=== PATIENT | male | born 1975 | race Caucasian/White ===

== ENCOUNTER 2020-08-04 13:13 | Emergency (ER) | payer OTHER, SELFPAY ==
[2020-08-04 13:19] VITALS: BP 157/81; PULSE 79; RESP 16; TEMP 36.1; O2SAT 99
[2020-08-04 14:15] VITALS: BP 155/83; PULSE 80; RESP 18; TEMP 36.6; O2SAT 98
--- NOTE | 2020-08-04 14:18 | ED.GENADULT ---
HPI - General Adult General Chief complaint: Unspecified Stated complaint: I feel like crap knot in wrist and shoulder Time Seen by Provider: 08/04/20 13:59 History of Present Illness HPI narrative: 44 yo male presents with multiple complaints. His primary concern is pain in his upper thoracic spine. He says that he has had thsi pain for several days. He reports that it is so tender that he is not able to sleep because he cannot let it touch the pillow. He is concerned about in fection because it is at the same location where he previously had a cyst removed. He also reports generally not feeling well. He reports that this all started months ago after being treated for a UTI. He denies any urinary symptoms. He also complains of a lumps over hisright wrist. He reports that it moves around and changes in size. It makes his hand feel stiff. Related Data Home Medications Medication Instructions Recorded Confirmed No Home Medications 08/04/20 08/04/20 Allergies Allergy/AdvReac Type Severity Reaction Status Date / Time erythromycin base Allergy Unknown Unknown Verified 08/04/20 14:13 Review of Systems Review of Systems: All systems reviewed & are unremarkable except as noted in HPI and below Constitutional: Constitutional: Reports fatigue, Denies fever(s) and Reports poor appetite Cardiovascular: Cardiovascular: Denies chest pain Gastrointestinal: Gastrointestinal: Reports nausea Genitourinary: Genitourinary: Denies hematuria and Denies dysuria Musculoskeletal: Musculoskeletal: Reports as per HPI Neurologic: Reports system reviewed and no additional complaints, except as documented [facility] Social History Social History (Updated 08/08/20 @ 18:47 by Edin Kimbrough MD) Smoking status: Never smoker Gender identity (if verbalized by the patient): Male Exam Const: General: healthy appearing, no acute distress and alert Orientation/consciousness: patient oriented x3 HENMT: Head: normal to inspection Neck: Neck: normal visual inspection and no lymphadenopathy Chest: Chest palpation & inspection: no tenderness Resp: Effort & Inspection: normal respiratory effort Auscultation: clear to auscultation bilaterally, no rales, no rhonchi and no wheezes Cardio: Jugular venous distension: no JVD Rate: regular rate Rhythm: regular rhythm Heart sounds: no murmurs GI: Inspection: non-distended GI Palp: Yes Soft to palpation and No Tenderness to palpation present (GI) Back/Spine/Pelvis: Other: Midline tenderness over upper thoracic region. No erythema, induration, fluctuance or other abnormality noted. Skin: General skin exam: normal color Neuro: General: patient oriented x3 and moves all extremities Speech: normal speech Extrem: General: no edema Other: right wrist ganglion cyst Psych: Appearance: well kempt Affect: normal affect Course Vital Signs Vital signs: Vital Signs Temperature 36.1 C L 08/04/20 13:19 Pulse Rate 79 08/04/20 13:19 Respiratory Rate 16 08/04/20 13:19 Blood Pressure 157/81 H 08/04/20 13:19 Pulse Oximetry 99 08/04/20 13:19 Temperature 36.8 C 08/04/20 15:58 Pulse Rate 81 08/04/20 15:58 Respiratory Rate 17 08/04/20 15:58 Blood Pressure 152/73 H 08/04/20 15:58 Pulse Oximetry 99 08/04/20 15:58 Procedures Abscess I/D upper extremity: Side (if applicable): right (wrist ganglion cyst) Local Anesthetic: none Technique: needle aspiration Amount of fluid expressed (mL): 2 Irrigation: No I&D Results: Other (clear viscous fluid) Other Procedure Procedure 1: Other Procedure: Trigger point injection 1 thoracic paraspinal muscle Skin anesthetized with 1 % lidocaine The muscle was then injected with a solution of 1 ml kenalog 40 and 4 ml 1 % lidocaine No immediate complication Medical Decision Making MDM Narrative Medical decision making narrative: No sign of abscess or other infection. No neurological
--- NOTE | 2020-08-04 14:20 | PC.NURSE ---
Reports point tenderness to back of left shoulder. No injury noted or reported. He does not report other concerns to me at this time.
--- NOTE | 2020-08-04 14:23 | PC.NURSE ---
Just prior to leaving room patient reports that he has had an ongoing urinary tract infection for at least two months that was treated by antibiotics. He feels that he is still having an infection and would like to be evaluated for this as well. EDP notified.
[2020-08-04 15:44] LABS: Add Urine Microscopic? NO; Appearance Urine Clear (Clear); Bilirubin Urine Negative (Negative); Blood Urine Negative (Negative); Color Urine Yellow (Yellow); Glucose Urine UA Negative (Negative); Ketones Urine Negative (Negative); Leukocyte Esterase Ur Negative LEU/UL (Negative); Nitrate Urine Negative (Negative); Protein Urine Negative (Negative); Specific Grav Ur 1.021 (1.001-1.035); Urobilinogen Urine Negative mg/dL (<2.0)
[2020-08-04 15:58] VITALS: BP 152/73; PULSE 81; RESP 17; TEMP 36.8; O2SAT 99
== END 2020-08-04 15:58 | disposition home or self-care (01) ==
PROVIDERS: Emergency Provider Emergency Medicine
DX: M67.431 Ganglion, right wrist (principal); M54.6 Pain in thoracic spine
CPT/HCPCS: 10160; 20552; 81003; 99283

== ENCOUNTER 2021-01-21 10:16 | Emergency (ER) | payer OTHER, SELFPAY ==
--- NOTE | ~2021-01-21 | CT_ITS ---
EXAMINATION: CT abdomen pelvis w con INDICATION: Abdominal pressure TECHNIQUE: Computed tomographic images of the abdomen and pelvis were obtained after the administrati on of 100 cc of Omnipaque 350 intravenous contrast. The dose-length product (DLP) was 1600.56 mGy-cm. Automated exposure control and iterative reconstruction technique were employed. COMPARISON: 12/12/2016 FINDINGS: Minimal dependent atelectasis is present in the lung bases. The heart size is normal. Punct ate calcifications in an otherwise normal spleen likely represent healed granulomatous disease. The l iver, pancreas, gallbladder, and right adrenal gland are normal. A stable 7 mm nodule of the left adr enal gland is most consistent with an adenoma. No pathologically enlarged abdominal or pelvic lymph n odes are identified. There is no free intraperitoneal gas or evidence of bowel obstruction. The appen fatou is normal. There are bilateral L5 pars defects with grade 1 anterolisthesis of L4 on L5. IMPRESSION: 1. No CT correlate for the patient's symptoms. Reviewed, dictated and finalized at location B.
[2021-01-21 10:19] VITALS: BP 189/80; PULSE 70; RESP 18; TEMP 35.9; O2SAT 99
[2021-01-21 10:38] LABS: Basophils Percent Auto 0.5 % (0.2-1.2); Eosinophils Absolute Auto 0.1 K/mm3 (0-0.3); Eosinophils Percent Auto 1.6 % (0-4.4); Hematocrit 43.6 % (42.0-52.0); Hemoglobin 14.7 g/dL (14.0-18.0); Immature Granulocyte Absolute 0.01 K/mm3 (0.00-0.031); Immature Granulocyte Percent A 0.2 % (0-0.5); Lymphocytes Absolute Auto 1.31 K/mm3 (0.9-3.2); Lymphocytes Percent Auto 21.1 % (18.3-44.2); Mean Corpuscular HGB Conc 33.7 g/dl (32-36); Mean Corpuscular Hemoglobin 30.9 pg (26-34); Mean Corpuscular Volume 91.6 fl (80-100); Mean Platelet Volume 9.2 fl (7.4-10.4); Monocytes Absolute Auto 0.4 K/mm3 (0.1-0.6); Monocytes Percent Auto 6.8 % (2.6-8.5); Neutrophils Absolute Auto 4.3 K/mm3 (1.3-6.7); Neutrophils Percent Auto 69.8 % (45.5-73.1); Platelet Count Result 183 k/mm3 (150-375); Red Blood Count 4.76 M/mm3 (4.6-6.20); Red Cell Distribution Width 12.7 % (11.5-14.5); White Blood Count 6.2 K/mm3 (4.5-10.0)
--- NOTE | 2021-01-21 10:52 | ED.ABDPAIN ---
HPI - Abdominal Pain General Chief Complaint: Abdominal Pain Stated Complaint: ABD pain, Request CT per EDP Time Seen by Provider: 01/21/21 10:52 Source: patient Mode of arrival: ambulatory Limitations: no limitations History of Present Illness HPI narrative: Patient is a 45-year-old male with a history of RODRIGUEZ, hypertension, presenting for evaluation of abdominal pain and diarrhea. Patient reports he has had diffuse abdominal pain after eating over the past 6 weeks which is worse in the center of his abdomen. At times the pain radiates into his upper or lower abdomen. He denies any flank pain. Patient reports episodes of diarrhea that usually occur after eating that do help to improve the patient's abdominal pain. Patient denies any blood or mucus. Patient denies any fever, chills, weight loss. No family history of irritable bowel disease that he is aware of. Patient states he was seen by gas pumper a year ago and had a normal endoscopy but was told to follow-up for colonoscopy and never did. He denies any chest pain, upper back pain. No cough or shortness of breath. No significant abdominal distention. No dysuria or hematuria. Patient states that he was seen by his primary care physician today who referred him to this emergency department for a CT scan. Related Data Allergies Allergy/AdvReac Type Severity Reaction Status Date / Time erythromycin base Allergy Unknown Unknown Verified 08/04/20 14:13 Review of Systems Review of Systems: CONSTITUTIONAL: Denies fever, chills, or sweats. EYES: Denies visual changes, redness, or discharge. ENT: Denies rhinorrhea, congestion, sore throat, or otalgia. CARDIOVASCULAR: Denies chest pain, palpitations, or edema. RESPIRATORY: Denies cough or dyspnea. GASTROINTESTINAL: Reports abdominal pain, denies nausea or vomiting, reports diarrhea GENITOURINARY: Denies dysuria or hematuria. SKIN: Denies rash or itching. MUSCULOSKELETAL: Denies back pain, joint pain, or myalgia. NEUROLOGIC: Denies headache, numbness, or weakness. [facility] Social History Social History (Updated 08/08/20 @ 18:47 by Edin Kimbrough MD) Smoking status: Never smoker Gender identity (if verbalized by the patient): Male Exam Narrative: GENERAL: Awake, alert, conversant HEAD: Normocephalic, atraumatic. EYES: PERRLA and EOMI. ENT: Nares clear, no rhinorrhea or epistaxis. Mucous membranes moist. NECK: Supple. CHEST: No respiratory distress, breathing even and non labored HEART: Regular rate, sinus rhythm ABDOMEN: Mildly protuberant, tender throughout, there is focal tenderness in the periumbilical area, no guarding, no rebound EXTREMITIES: Normal range of motion. No edema. SKIN: Warm, dry, no rash. NEURO:No focal deficits. Alert and oriented x3 Course Vital Signs Vital signs: Vital Signs Temperature 35.9 C L 01/21/21 10:19 Pulse Rate 70 01/21/21 10:19 Respiratory Rate 18 01/21/21 10:19 Blood Pressure 189/80 H 01/21/21 10:19 Pulse Oximetry 99 01/21/21 10:19 Temperature 35.9 C L 01/21/21 10:19 Pulse Rate 73 01/21/21 11:48 Respiratory Rate 18 01/21/21 11:48 Blood Pressure 185/99 H 01/21/21 11:48 Pulse Oximetry 98 01/21/21 11:48 MDM - Abdominal Pain MDM Narrative Medical decision making narrative: Patient presented for evaluation of acute on chronic abdominal pain after being seen by his primary care physician. At the time of assessment, abdominal exam is notable for tenderness throughout without rigidity or guarding. IV access obtained and labs are drawn. Patient declined any pain medication. Laboratory results are reassuring. CT scan also reassuring without any focal etiology for the patient's symptoms. Patient's abdomen is soft without significant pain or signs of surgical abdomen on serial exams. Lab and imaging evaluations are reviewed and patient is felt to be a reasonable candidate for outpatient management. At this point, patient will benefit from follow
[2021-01-21 10:56] LABS: Add Urine Microscopic? NO; Appearance Urine Clear (Clear); Bilirubin Urine Negative (Negative); Blood Urine Negative (Negative); Color Urine Yellow (Yellow); Glucose Urine UA Negative (Negative); Ketones Urine Negative (Negative); Leukocyte Esterase Ur Negative LEU/UL (Negative); Nitrate Urine Negative (Negative); Protein Urine Negative (Negative); Specific Grav Ur 1.018 (1.001-1.035); Urobilinogen Urine Negative mg/dL (<2.0)
[2021-01-21 11:12] LABS: Alanine Aminotransferase 45 U/L (4-50); Albumin Level 4.4 g/dL (3.5-5.1); Alkaline Phosphatase 68 U/L (38-126); Anion Gap 7 mmol/L (8-16); Aspartate Amino Transferase 31 U/L (17-59); Bilirubin,Total 0.4 mg/dL (0.2-1.3); Blood Urea Nitrogen 10 mg/dL (9-20); Calcium 9.7 mg/dL (8.4-10.2); Carbon Dioxide 28 mmol/L (22-30); Chloride 103 mmol/L (98-107); Estimated CRCL calculation 154 ml/min; Estimated Glomerular Filt Rate > 60; Glucose 209 mg/dL (65-110); Lipase 94 U/L (23-300); Potassium 4.4 mmol/L (3.4-5.0); Sodium 138 mmol/L (137-145)
[2021-01-21 11:48] VITALS: BP 185/99; PULSE 73; RESP 18; O2SAT 98
[2021-01-21 12:33] VITALS: BP 167/107; PULSE 72; RESP 16; O2SAT 98
== END 2021-01-21 12:34 | disposition home or self-care (01) ==
PROVIDERS: Emergency Provider Emergency Medicine; PCP Emergency Medicine
DX: R10.9 Unspecified abdominal pain (principal); I10 Essential (primary) hypertension; K75.81 Nonalcoholic steatohepatitis (NASH)
CPT/HCPCS: 36415; 74177; 80053; 81003; 83690; 85025; 99284; Q9967

== ENCOUNTER 2021-02-18 08:45 | Outpatient (CLI) | payer OTHER, SELFPAY ==
--- NOTE | ~2021-02-18 | US_ITS ---
US abdomen limited INDICATION: Abdomen pain PROCEDURE: Realtime right upper abdominal ultrasound. COMPARISON: No prior studies for comparison. FINDINGS: The pancreas is normal without focal mass or pancreatic ductal dilation. Liver echotexture is increased, consistent with fatty infiltration. There is normal directional flow in the portal ve in. The gallbladder is normal without stones, gallbladder wall thickening or pericholecystic fluid. Comm on bile duct measures 6 mm. No sonographic Delgado's sign. IMPRESSION: 1: Hepatic steatosis. Reviewed, dictated and finalized at location B. [employer] IMPRESSION: 1: Hepatic steatosis.
== END 2021-02-18 08:46 | disposition home or self-care (01) ==
LOC: ANHIMG 08:47
PROVIDERS: PCP Emergency Medicine; Visit Provider Surgery
DX: K59.00 Constipation, unspecified (principal); R10.11 Right upper quadrant pain; R10.84 Generalized abdominal pain; K76.0 Fatty (change of) liver, not elsewhere classified
CPT/HCPCS: 76705

== ENCOUNTER 2021-02-24 16:05 | Emergency (ER) | payer OTHER, SELFPAY ==
[2021-02-24 16:09] VITALS: BP 139/76; PULSE 98; RESP 20; TEMP 36.4; O2SAT 97
--- NOTE | 2021-02-24 16:11 | ED.GENADULT ---
HPI - General Adult General Chief complaint: Abdominal Pain Stated complaint: EARACHE/STOMACH PAIN Source: patient Mode of arrival: ambulatory Limitations: no limitations History of Present Illness HPI narrative: 45 y/o male. Presents to [facility] today with acute complaints of bilateral otalgia, RT > burdensome than LT, and worsening in the past 2 days. Client notes associated and mild nasal congestion. He also tells me he has had loose stool since last HS and abdominal 'cramping'. Denies fever, chills. No MIRZA, sore throat. No cough, chest congestion, chest pain, dyspnea. Denies appetite changes, flank pain, maleurogen concern, or bloody stool. Patient adds that he actually has a history of abdominal pain, thought to possibly be IBS. However, tells me this pain is generalized, but is somewhat worse. His records verify prolonged GI complaints with negative CT abdomen and RUQ Ultrasonography in the last 1 month. He is scheduled to see GI specialty actually next week. Mild nausea, no emesis. No known ill contacts, he is without additional acute c/o illness upon PE. Related Data Home Medications Medication Instructions Recorded Confirmed carvedilol 02/24/21 fluticasone propionate INTRANASAL 02/24/21 montelukast mg 02/24/21 Allergies Allergy/AdvReac Type Severity Reaction Status Date / Time erythromycin base Allergy Other Verified 02/24/21 16:10 Review of Systems Review of Systems: CONSTITUTIONAL: Denies fever, chills, sweats. EYES: Denies visual changes, redness, discharge. ENT: Positive rhinorrhea, congestion. No sore throat. Positive otalgia. CARDIOVASCULAR: Denies chest pain, palpitations, edema. RESPIRATORY: Denies dyspnea, wheezing, cough GASTROINTESTINAL: Denies nausea, vomiting. Positive diarrhea and prolonged abdominal pain. GENITOURINARY: Denies dysuria, hematuria, abnormal discharge SKIN: Denies rash or itching. MUSCULOSKELETAL: Denies acute back pain, joint pain, or myalgia. NEUROLOGIC: Denies numbness, or focal weakness. PSYCHIATRIC: Denies anxiety or depression. [facility] Past Medical History Medical History Thyroid condition Social History Social History Smoking status: Former smoker Gender identity (if verbalized by the patient): Male Exam Narrative: GENERAL: This is a well-nourished, well-developed adult, in no apparent distress. HEAD: normocephalic, atraumatic. EYES: PERRL. Sclera clear/white. EARS: External ears normal. RT auditory canal is erythematous with mild yellow discharge. No obstruction, TM Bulging. Positive Tragus manipulation Bilateral. No auditory deficits, no obstruction. NOSE: External nose normal. Positive Rhinorrhea, no obstruction, nares patent. THROAT: Mucous membranes moist, posterior pharynx clear. No exudates. NECK: Neck supple, non-tender without lymphadenopathy, masses or thyromegaly. CARDIOVASCULAR: Regular rate and rhythm without murmurs, gallops, or rubs. RESPIRATORY: Clear to auscultation. Breath sounds equal bilaterally. No wheezes, rales, or rhonchi. GASTROINTESTINAL: Abdomen soft, non-tender, nondistended. Bowel sounds are active. No guarding or rebound. No acute abdomen signs. SKIN: warm, intact with no suspicious lesions or rash, good texture and turgor. NEURO: Alert, active, and age appropriate. No focal neurologic deficits. Course Vital Signs Vital signs: Vital Signs Temperature 36.4 C 02/24/21 16:09 Pulse Rate 98 02/24/21 16:09 Respiratory Rate 20 02/24/21 16:09 Blood Pressure 139/76 02/24/21 16:09 Pulse Oximetry 97 02/24/21 16:09 Temperature 36.4 C 02/24/21 16:09 Pulse Rate 98 02/24/21 16:09 Respiratory Rate 20 02/24/21 16:09 Blood Pressure 139/76 02/24/21 16:09 Pulse Oximetry 97 02/24/21 16:09 Medical Decision Making MDM Narrative Medical decision making narrative:
== END 2021-02-24 16:31 | disposition home or self-care (01) ==
PROVIDERS: Emergency Provider Nurse Practitioner Adult Health; PCP Emergency Medicine
DX: R11.0 Nausea (principal); R10.84 Generalized abdominal pain; H66.91 Otitis media, unspecified, right ear; Z87.891 Personal history of nicotine dependence
CPT/HCPCS: 99213; G0463

== ENCOUNTER 2021-04-06 18:59 | Emergency (ER) | payer OTHER, SELFPAY ==
[2021-04-06 19:07] VITALS: BP 157/95; PULSE 77; RESP 16; TEMP 35.9; O2SAT 98
--- NOTE | 2021-04-06 19:23 | ED.URI ---
HPI - URI/Sore Throat General Chief Complaint: Upper Respiratory Infection Stated Complaint: sinus infection Time Seen by Provider: 04/06/21 19:24 Source: patient and RN notes reviewed Mode of arrival: ambulatory Limitations: no limitations History of Present Illness HPI Narrative: 45-year-old male presents with concern for 10-day history of sinus pressure, pain, drainage, body aches, chills, ear pain, head pressure, thick nasal drainage, joint pain. Reports symptoms started right after he had a gastrointestinal scope done. He reports has been taking several [id number] medications without relief. MD elicited complaint: nasal congestion Related Data Home Medications Medication Instructions Recorded Confirmed carvedilol 02/24/21 fluticasone propionate INTRANASAL 02/24/21 montelukast mg 02/24/21 Allergies Allergy/AdvReac Type Severity Reaction Status Date / Time erythromycin base Allergy Other Verified 02/24/21 16:10 Review of Systems Review of Systems: CONSTITUTIONAL: Reports malaise, chills, sweats EYES: Denies visual changes, redness, or discharge. ENT: Reports rhinorrhea, congestion, sinus pain, otalgia and sore throat. CARDIOVASCULAR: Denies chest pain, palpitations, or edema. RESPIRATORY: Denies cough. Denies dyspnea. GASTROINTESTINAL: Denies abdominal pain, nausea, vomiting, diarrhea SKIN: Denies rash or itching. MUSCULOSKELETAL: Reports joint pain and myalgia. NEUROLOGIC: Denies headache. All systems reviewed & are unremarkable except as noted in HPI and below PMFSH Past Medical History Medical History Thyroid condition Social History Social History Smoking status: Former smoker Gender identity (if verbalized by the patient): Male Comments At time of signature, agree with nursing past medical, surgical, social and family history. There is no relevant family history pertinent to the presenting complaint Exam Narrative: GENERAL: Nontoxic-appearing, well-nourished, and in no acute distress. HEAD: Normocephalic EYES: PERRLA, conjunctivae clear. Sclerae injected bilaterally ENT: Nares clear, turbinates edematous and erythematous, sinus tenderness. Mucous membranes moist. TM pearly gdooy with dull light reflex bilaterally; no tragal tenderness. Oropharynx not erythematous without lesions. Tonsils not enlarged and without exudate, no drooling, no hoarseness, no trismus, uvula midline. NECK: Supple. No lymphadenopathy CHEST: Clear to auscultation, breath sounds equal. No wheezing, rhonchi, rales, or stridor. No respiratory distress, speaks in full sentences. HEART: Regular rate and rhythm. No murmur heard. SKIN: Warm, dry, no rash. NEURO: Alert and oriented x3. PSYCH: Normal mood and affect Course Course Emergency Course: Patient is aware of diagnosis, understands and agrees to treatment plan. Anticipatory guidance given. Patient agrees to follow-up as directed and is aware of reasons to seek care at the emergency department. Portions of this record may have been created with voice recognition software Level of Care: Express Care Visit Vital Signs Vital signs: Vital Signs Temperature 96.6 F L 04/06/21 19:07 Pulse Rate 77 04/06/21 19:07 Respiratory Rate 16 04/06/21 19:07 Blood Pressure 157/95 H 04/06/21 19:07 Pulse Oximetry 98 04/06/21 19:07 Temperature 96.6 F L 04/06/21 19:07 Pulse Rate 77 04/06/21 19:07 Respiratory Rate 16 04/06/21 19:07 Blood Pressure 157/95 H 04/06/21 19:07 Pulse Oximetry 98 04/06/21 19:07 Reviewed. Patient with history of hypertension MDM - URI/Sore Throat MDM Narrative Medical decision making narrative: Differential diagnosis considered: Jon virus, strep pharyngitis, allergic rhinitis, upper respiratory tract infection, sinusitis, rhinosinusitis, nasopharyngitis. viral pharyngitis, otitis media, otitis externa, pneumonia,
== END 2021-04-06 19:45 | disposition home or self-care (01) ==
PROVIDERS: Emergency Provider Nurse Practitioner; PCP Emergency Medicine
DX: J01.90 Acute sinusitis, unspecified (principal); Z87.891 Personal history of nicotine dependence
CPT/HCPCS: 87426; 99213; C9803; G0463

== ENCOUNTER 2021-09-02 18:50 | Emergency (ER) | payer OTHER, SELFPAY ==
--- NOTE | ~2021-09-02 | XR_ITS ---
EXAM: XR abdomen/kub 1V DATE: 09/02/2021 20:07 HISTORY: constipation . COMPARISON: None available. FINDINGS: Clear lung bases. Normal bowel gas pattern. No evidence of fecal impaction. No organomegal y. Pelvic phleboliths. Lumbar degenerative change. IMPRESSION: No radiographic evidence of obstruction or ileus. Reviewed, dictated and finalized at location K.
--- NOTE | ~2021-09-02 | CT_ITS ---
EXAMINATION: CT abdomen pelvis wo con DATE: 09/02/2021 21:48 INDICATION: RLQ pain TECHNIQUE: Computed tomography (CT) of the abdomen and pelvis was performed without intravenous contr ast. Automated exposure control and iterative reconstruction technique were employed. The dose-length product was 1772.12 mGy-cm. COMPARISON: 01/21/2021. FINDINGS: Lower thorax: Bibasilar atelectasis. Liver: Enlarged low-density liver. Biliary/Gallbladder: Gallbladder is normal. No bile duct dilation. Pancreas: No mass or duct dilation. Spleen: Enlarged. Adrenals:Nodularity left adrenal gland likely represents previously described subcentimeter adenoma. Kidneys: No mass, stone, or hydronephrosis. GI tract: No small or large bowel dilation. Normal appendix. Mesentery/Peritoneum: No ascites, mass, or free air. Retroperitoneum: No mass. Pelvis: Pelvic organs are within normal limits. Soft Tissues: Soft tissues and body wall unremarkable. Bones: No acute osseous finding. IMPRESSION: No acute abdominopelvic process. Hepatosplenomegaly. Steatosis. Reviewed, dictated and finalized at location K.
[2021-09-02 18:53] VITALS: BP 135/75; PULSE 108; RESP 17; TEMP 37.3; O2SAT 98
[2021-09-02 19:08] LABS: Basophils Absolute Auto 0.1 K/mm3 (0.0-0.1); Basophils Percent Auto 0.4 % (0.2-1.2); Eosinophils Absolute Auto 0.1 K/mm3 (0-0.3); Hematocrit 44.3 % (42.0-52.0); Immature Granulocyte Absolute 0.03 K/mm3 (0.00-0.031); Immature Granulocyte Percent A 0.3 % (0-0.5); Lymphocytes Absolute Auto 1.64 K/mm3 (0.9-3.2); Lymphocytes Percent Auto 14.2 % (18.3-44.2); Mean Corpuscular HGB Conc 33.9 g/dl (32-36); Mean Corpuscular Hemoglobin 29.6 pg (26-34); Mean Corpuscular Volume 87.5 fl (80-100); Mean Platelet Volume 9.5 fl (7.4-10.4); Monocytes Absolute Auto 1.1 K/mm3 (0.1-0.6); Monocytes Percent Auto 9.6 % (2.6-8.5); Neutrophils Absolute Auto 8.6 K/mm3 (1.3-6.7); Neutrophils Percent Auto 74.5 % (45.5-73.1); Platelet Count Result 245 k/mm3 (150-375); Red Blood Count 5.06 M/mm3 (4.6-6.20); White Blood Count 11.6 K/mm3 (4.5-10.0)
[2021-09-02 19:18] LABS: Alanine Aminotransferase 49 U/L (6-50); Albumin Level 4.7 g/dL (3.5-5.1); Alkaline Phosphatase 89 U/L (38-126); Anion Gap 10 mmol/L (8-16); Aspartate Amino Transferase 40 U/L (17-59); Bilirubin,Total 0.6 mg/dL (0.2-1.3); Blood Urea Nitrogen 13 mg/dL (9-20); Calcium 10.1 mg/dL (8.4-10.2); Carbon Dioxide 24 mmol/L (22-30); Chloride 105 mmol/L (98-107); Estimated CRCL calculation 102 ml/min; Estimated Glomerular Filt Rate > 60; Glucose 116 mg/dL (65-110); Lipase 91 U/L (23-300); Sodium 139 mmol/L (137-145)
[2021-09-02] MEDS: DICYCLOMINE HCL 10 MG CAPSULE 20 MG PO (20:18)
[2021-09-02] MEDS: SODIUM CHLORIDE 0.9% IV 1,000 ML 999 ML IV CONT (20:18)
[2021-09-02] MEDS: ONDANSETRON INJ 4 MG/2 ML VIAL IV PUSH (20:18)
[2021-09-02 20:56] LABS: Appearance Urine Clear (Clear); Bilirubin Urine Negative (Negative); Color Urine Yellow (Yellow); Glucose Urine UA Negative (Negative); Ketones Urine Trace mg/dL (Negative); Leukocyte Esterase Ur Negative LEU/UL (Negative); Nitrate Urine Negative (Negative); Protein Urine Negative (Negative); Specific Grav Ur >= 1.030 (1.001-1.035); Urobilinogen Urine 0.2 mg/dL (<2.0); pH Urine 5.5 (5.0-9.0)
[2021-09-02 20:58] LABS: Add Urine Microscopic? YES; Blood Urine Trace-Intact (Negative)
[2021-09-02 21:04] LABS: Calcium Oxalate Crystals Urine Present /hpf; Mucus Urine Rare /lpf; RBC Urine 0-2 /hpf (0-2); Squamous Epithelial Cell Urine Occasional /hpf (Few); WBC Urine 0-3 /hpf
--- NOTE | 2021-09-02 21:31 | ED.GENADULT ---
HPI - General Adult General Chief complaint: Abdominal Pain Stated complaint: abd pain, chronic Time Seen by Provider: 09/02/21 19:32 History of Present Illness HPI narrative: Patient is a 46-year-old male who presents ER with abdominal cramping and bloating. Ongoing over the last day. Reports he has history of IBS. He was seen by a GI doctor in [place]. Unsure of the name. Reports he has had a EGD and a colonoscopy that were unremarkable. Reports he has been having diarrhea over the last week and was not eating much and attempt to make it stop. He then did not have a bowel movement yesterday. Today he had to force out of small piece of stool. Denies fevers or chills or sweats. No localizing pain. No urinary frequency urgency or dysuria. Related Data Home Medications Medication Instructions Recorded Confirmed carvedilol 6.25 mg tablet 02/24/21 fluticasone propionate 50 intranasal 02/24/21 mcg/actuation nasal spray,suspension montelukast 10 mg tablet mg 02/24/21 Allergies Allergy/AdvReac Type Severity Reaction Status Date / Time erythromycin base Allergy Other Verified 09/02/21 18:56 Review of Systems Review of Systems: All systems reviewed & are unremarkable except as noted in HPI and below Constitutional: Constitutional: Denies chills and Denies fever(s) ENT: Denies nasal congestion and Denies sore throat Cardiovascular: Cardiovascular: Denies chest pain and Denies rapid heart rate Respiratory: Respiratory: Denies cough and Denies dyspnea Gastrointestinal: Gastrointestinal: Reports abdominal pain, Reports bloating, Reports constipation, Reports diarrhea, Reports nausea and Denies vomiting Musculoskeletal: Musculoskeletal: Reports back pain (Chronic) Neurologic: Denies focal weakness and Denies numbness PMFSH Past Medical History Medical History (Updated 09/02/21 @ 23:49 by Derik Saleh MD) Hypertension Non-alcoholic fatty liver disease Thyroid condition Surgical History Surgical History (Updated 09/02/21 @ 23:49 by Derik Saleh MD) H/O colonoscopy History of esophagogastroduodenoscopy (EGD) Social History Social History Smoking status: Former smoker Gender identity (if verbalized by the patient): Male Exam Narrative: GENERAL: Well-appearing, well-nourished, and in no acute distress. HEAD: Normocephalic, atraumatic. CHEST: Clear to auscultation. No respiratory distress. HEART: Regular rate and rhythm. Normal peripheral pulses. ABDOMEN: Soft, mild right lower quadrant discomfort without guarding nondistended, normal active bowel sounds. Back: No reproducible midline or paraspinal muscle tenderness. No palpable spasm. EXTREMITIES: Normal range of motion. No edema. SKIN: Warm, dry, no rash. NEURO: N Alert and oriented x3. PSYCH: Normal mood and affect. Course Course Emergency Course: Unremarkable evaluation. Discharge home. Follow-up with PCP. Vital Signs Vital signs: Vital Signs Temperature 99.2 F 09/02/21 18:53 Pulse Rate 108 H 09/02/21 18:53 Respiratory Rate 17 09/02/21 18:53 Blood Pressure 135/75 09/02/21 18:53 Pulse Oximetry 98 09/02/21 18:53 Temperature 99.2 F 09/02/21 18:53 Pulse Rate 108 H 09/02/21 18:53 Respiratory Rate 17 09/02/21 18:53 Blood Pressure 135/75 09/02/21 18:53 Pulse Oximetry 98 09/02/21 18:53 Medical Decision Making Vital Signs Vital Signs: Vital Signs Temperature 99.2 F 09/02/21 18:53 Pulse Rate 108 H 09/02/21 18:53 Respiratory Rate 17 09/02/21 18:53 Blood Pressure 135/75 09/02/21 18:53 Pulse Oximetry 98 09/02/21 18:53 Temperature 99.2 F 09/02/21 18:53 Pulse Rate 108 H 09/02/21 18:53 Respiratory Rate 17 09/02/21 18:53 Blood Pressure 135/75 09/02/21 18:53 Pulse Oximetry 98 09/02/21 18:53 Lab Data Result diagrams: 09/02/21 18:59 09/02/21 18:59
[2021-09-02 23:48] VITALS: BP 130/74; PULSE 86; RESP 20; O2SAT 96
== END 2021-09-02 23:53 | disposition home or self-care (01) ==
PROVIDERS: Emergency Medicine; Emergency Provider Emergency Medicine; PCP Emergency Medicine
DX: R14.0 Abdominal distension (gaseous) (principal); I10 Essential (primary) hypertension; Z87.891 Personal history of nicotine dependence
CPT/HCPCS: 36415; 74018; 74176; 80053; 81001; 83690; 85025; 96361; 96374; 99284; A9270; J2405; J7030

== ENCOUNTER 2021-09-16 14:27 | Emergency (ER) | payer OTHER, SELFPAY ==
--- NOTE | ~2021-09-16 | XR_ITS ---
EXAMINATION: XR abdomen obstructive series DATE: 09/16/2021 16:50 INDICATION: Right lower quadrant pain TECHNIQUE: Upright and supine views of the abdomen were obtained. COMPARISON: 09/02/2021 FINDINGS: The bowel gas pattern is normal. There are phleboliths of the left pelvis. There are no dil ated loops of bowel. No free intraperitoneal gas is identified. IMPRESSION: 1. Nonobstructive bowel gas pattern. Reviewed, dictated and finalized at location A.
[2021-09-16 14:44] LABS: Basophils Percent Auto 0.5 % (0.2-1.2); Eosinophils Absolute Auto 0.1 K/mm3 (0-0.3); Hematocrit 41.3 % (42.0-52.0); Hemoglobin 13.9 g/dL (14.0-18.0); Immature Granulocyte Absolute 0.02 K/mm3 (0.00-0.031); Immature Granulocyte Percent A 0.3 % (0-0.5); Mean Corpuscular HGB Conc 33.7 g/dl (32-36); Mean Corpuscular Hemoglobin 29.8 pg (26-34); Mean Corpuscular Volume 88.4 fl (80-100); Mean Platelet Volume 9.5 fl (7.4-10.4); Monocytes Absolute Auto 0.5 K/mm3 (0.1-0.6); Monocytes Percent Auto 7.8 % (2.6-8.5); Neutrophils Absolute Auto 4.3 K/mm3 (1.3-6.7); Neutrophils Percent Auto 67.4 % (45.5-73.1); Platelet Count Result 197 k/mm3 (150-375); Red Blood Count 4.67 M/mm3 (4.6-6.20); Red Cell Distribution Width 12.8 % (11.5-14.5); White Blood Count 6.4 K/mm3 (4.5-10.0)
[2021-09-16 14:47] VITALS: BP 150/74; PULSE 80; RESP 16; TEMP 36.8; O2SAT 98
[2021-09-16 15:05] LABS: Alanine Aminotransferase 49 U/L (6-50); Albumin Level 4.2 g/dL (3.5-5.1); Alkaline Phosphatase 77 U/L (38-126); Anion Gap 6 mmol/L (8-16); Aspartate Amino Transferase 38 U/L (17-59); Bilirubin,Total 0.6 mg/dL (0.2-1.3); Blood Urea Nitrogen 9 mg/dL (9-20); Calcium 8.7 mg/dL (8.4-10.2); Carbon Dioxide 29 mmol/L (22-30); Chloride 103 mmol/L (98-107); Estimated CRCL calculation 135 ml/min; Estimated Glomerular Filt Rate > 60; Glucose 188 mg/dL (65-110); Lipase 104 U/L (23-300); Potassium 3.6 mmol/L (3.4-5.0); Sodium 138 mmol/L (137-145)
[2021-09-16 16:28] LABS: Appearance Urine Slightly Cloudy (Clear); Bilirubin Urine Negative (Negative); Blood Urine Trace-lysed (Negative); Color Urine Yellow (Yellow); Glucose Urine UA Trace mg/dL (Negative); Ketones Urine Trace mg/dL (Negative); Leukocyte Esterase Ur Negative LEU/UL (Negative); Nitrate Urine Negative (Negative); Protein Urine Negative (Negative); Specific Grav Ur 1.025 (1.001-1.035); Urobilinogen Urine 0.2 mg/dL (<2.0)
[2021-09-16 16:39] LABS: Bacteria Urine Trace /hpf; Calcium Oxalate Crystals Urine Present /hpf; Mucus Urine Few /lpf; Squamous Epithelial Cell Urine Rare /hpf (Few)
--- NOTE | 2021-09-16 16:48 | PC.NURSE ---
patient off unit to radiology.
[2021-09-16 16:50] LABS: Add Urine Microscopic? YES
[2021-09-16 17:08] LABS: SARS-CoV-2 RNA PCR Negative
--- NOTE | 2021-09-16 18:05 | ED.ABDPAIN ---
HPI - Abdominal Pain General Chief Complaint: Abdominal Pain Stated Complaint: ABD Pain, Sinus Issues Time Seen by Provider: 09/16/21 15:53 Source: RN notes reviewed History of Present Illness HPI narrative: Patient presents emergency department from home for multiple complaints. Patient states that for the past 4 days he has been having sinus congestion with pressure in his ears and rhinorrhea states that he he has had previous sinus infections before in the past and gone to his PCP today for evaluation of this with PCP had evaluated him and the patient also mentioned that he had had some ongoing abdominal pain. Patient states he has had pain on the right side of his abdomen for the past several months the pain is described as aching in nature urine has been obtained at the office that showed blood in the urine the patient bedside for concerns of kidney stones. Patient states he does been seen in the emergency department as in the past [address] weeks and had a CT scan at that time that was negative and a negative work-up states he has seen GI and has had an EGD and a colonoscopy for the work-up before in the past he states that he also is concerned about a recent STD exposure from his significant other states he was told that she had trichomonas and is wishing to be tested and treated for sexually transmitted disease. Denies any testicular tenderness Related Data Home Medications Medication Instructions Recorded Confirmed carvedilol 6.25 mg tablet 02/24/21 fluticasone propionate 50 intranasal 02/24/21 mcg/actuation nasal spray,suspension montelukast 10 mg tablet mg 02/24/21 Allergies Allergy/AdvReac Type Severity Reaction Status Date / Time erythromycin base Allergy Other Verified 09/16/21 14:49 Review of Systems Review of Systems: Gen.: Denies fevers or chills Eyes: Denies eye pain or visual change ENT: See HPI Respiratory: Denies shortness of breath or cough CV: Denies chest pain or palpitations GI: Reports abdominal pain denies nausea, emesis or diarrhea denies burning, urgency, frequency or hematuria Musculoskeletal: Denies back pain or muscle pain Neuro: Denies numbness, tingling, weakness or focal weakness Skin: Denies rash Except as documented, all other systems reviewed and negative PMF Past Medical History Medical History Hypertension Non-alcoholic fatty liver disease Thyroid condition Surgical History Surgical History (Updated 09/02/21 @ 23:49 by Derik Saleh MD) H/O colonoscopy History of esophagogastroduodenoscopy (EGD) Social History Social History Smoking status: Former smoker Gender identity (if verbalized by the patient): Male Exam Narrative: APPEARANCE: No acute distress, nontoxic, resting in bed EYES: EOMI HEENT: Normocephalic, atraumatic, TMs clear bilaterally bilateral turbinates boggy, no erythema exudate posterior pharynx uvula midline mild tenderness over maxillary sinuses RESPIRATORY: No respiratory distress Clear to auscultation bilaterally with no rhonchi wheezing or rales. CARDIOVASCULAR: Regular rate and rhythm without murmurs rubs or gallops. ABDOMINAL: Soft, nondistended mild tenderness right upper quadrant no tenderness in the right lower quadrant no tenderness left upper quadrant left lower quadrant no rebound or guard MUSCULOSKELETAl: Moves all extremities. No clubbing, cyanosis or edema. NEURO: Awake and alert. Following commands, speech normal, no focal deficits SKIN:: Warm, dry. No rashes lesions or abrasions PSYCHIATRIC: Normal affect/mood, Course Course Emergency Course: Reviewed patient's old records the patient had a CT scan 09/02/2021 that showed no kidney stones that time showed no acute process patient has had ongoing abdominal pain since back in January 2021 he has had 2 CTs since that time he is also been seen by general surgery with ne
[2021-09-16] MEDS: cefTRIAXone 1 GM VIAL 0.5 GM IM (18:54)
[2021-09-16] MEDS: metroNIDAZOLE 250 MG TABLET 2000 MG PO (18:55)
[2021-09-16] MEDS: DOXYCYCLINE HYCLATE 100 MG TABLET PO (18:55)
[2021-09-16] MEDS: LIDOCAINE HCL 1% LOCAL INJ 20 ML VIAL 2.1 ML XX (18:56)
[2021-09-16 19:30] VITALS: BP 156/71; PULSE 78; RESP 16; O2SAT 99
== END 2021-09-16 19:33 | disposition home or self-care (01) ==
PROVIDERS: Emergency Medicine; Emergency Provider Emergency Medicine; PCP Emergency Medicine
DX: J32.9 Chronic sinusitis, unspecified (principal); R10.11 Right upper quadrant pain; Z20.2 Contact with and (suspected) exposure to infections with a predominantly sexual mode of transmission; Z20.822 Contact with and (suspected) exposure to COVID-19; I10 Essential (primary) hypertension; K76.0 Fatty (change of) liver, not elsewhere classified; Z87.891 Personal history of nicotine dependence
CPT/HCPCS: 36415; 74019; 80053; 81001; 83690; 85025; 87086; 87491; 87591; 87661; 96372; 99283; A9270; C9803; J0696; U0003; U0005

== ENCOUNTER 2021-11-03 14:13 | Emergency (ER) | payer OTHER, SELFPAY ==
--- NOTE | 2021-11-03 14:38 | ED.URI ---
HPI - URI/Sore Throat General Chief Complaint: Urogenital-Male Stated Complaint: Ear pain, congestion Time Seen by Provider: 11/03/21 15:20 Source: patient Mode of arrival: ambulatory Limitations: no limitations History of Present Illness HPI Narrative: Mr. Bustos is a 46-year-old male patient presenting to the clinic today with complaints of cough congestion and urinary symptoms. He reports this is been going on for approximately 2 weeks. He reports that his sexual partner was tested and was positive for trichomonas. He is concerned that she may have had either kind of STIs and did not tell him. He denies any penile discharge but feels as though he is having discharge at times. Reports dysuria and general malaise. MD elicited complaint: cough and other (Malaise) Related Data Home Medications Medication Instructions Recorded Confirmed fluticasone propionate 50 50 mcg intranasal DAILY 11/03/21 11/03/21 mcg/actuation nasal spray,suspension Allergies Allergy/AdvReac Type Severity Reaction Status Date / Time erythromycin base Allergy Other Verified 11/03/21 15:07 Review of Systems Review of Systems: Pertinent positives per HPI. Patient denies any fever, chills, rash, headache, visual changes, dizziness, cough, shortness of breath, chest pain, palpitations, nausea, vomiting, diarrhea, constipation, abdominal pain, or any urinary issues. [facility] Past Medical History Medical History Hypertension Non-alcoholic fatty liver disease Thyroid condition Surgical History Surgical History H/O colonoscopy History of esophagogastroduodenoscopy (EGD) Social History Social History Smoking status: Former smoker Gender identity (if verbalized by the patient): Male Comments At the time of my signature, I reviewed and agree with the nursing past medical, surgical, social, and family history. There is no relevant family history pertinent to the patient complaint. Exam Narrative: General: Well-developed, obese, in no apparent distress Head: Normocephalic, atraumatic Eyes: Pupils equally round and reactive to light bilaterally, EOM intact, sclera and conjunctive clear, no discharge, lids normal Ears: TMs intact and clear, ear canals clear, no drainage, grossly hearing normal. Nose: Nares patent, no discharge, no inflammation, no sinus tenderness. Mouth: Oral pharynx without lesions or masses, good dentition, MMM. Neck: Supple, trachea midline, no enlargement of anterior or posterior cervical nodes, no thyroid masses or goiter palpable. Cardio: Regular rate and rhythm, s1 and s2 normal, no murmur appreciated. Resp: Clear to auscultation bilaterally, no rhonchi, rales, wheezing or rubs Abdomen: Soft, pliable, nontender to palpation, no organomegaly, bowel sounds present all 4 quadrants, no CVAT tenderness : Deferred Course Course Emergency Course: Portions of this record may have been created with voice recognition software. Level of Care: Express Care Visit Vital Signs Vital signs: Vital signs reviewed MDM - URI/Sore Throat MDM Narrative Medical decision making narrative: At the time of visit patient is resting comfortably on the exam table. Patient reports that he had sexual intercourse with his ex- who was possibly not treated for trichomonas infection. He reports that he does not know what type of infection she has had but he would like to get full treatment in the clinic today. Rocephin 500 mg given in the clinic today and patient was placed on Flagyl and doxycycline. Supportive measures were discussed with the patient and he voiced understanding of discharge instructions and agrees to treatment plan. Differential Diagnosis Differential diagnosis: Likely upper respiratory infection, otitis media, sinusitis, v
[2021-11-03 15:20] VITALS: BP 142/78; PULSE 83; RESP 18; TEMP 36.4; O2SAT 97
[2021-11-03] MEDS: cefTRIAXone 1 GM, LIDOCAINE HCL 1% LOCAL INJ 2.1 ML IM (15:59)
== END 2021-11-03 16:23 | disposition home or self-care (01) ==
PROVIDERS: Emergency Provider Nurse Practitioner Family
DX: Z20.2 Contact with and (suspected) exposure to infections with a predominantly sexual mode of transmission (principal); R30.0 Dysuria; R53.83 Other fatigue; Z87.891 Personal history of nicotine dependence; I10 Essential (primary) hypertension; K76.0 Fatty (change of) liver, not elsewhere classified
CPT/HCPCS: 81003; 87491; 87591; 87661; 96372; 99213; G0463; J0696

== ENCOUNTER 2021-11-22 08:50 | Emergency (ER) | payer OTHER, SELFPAY ==
[2021-11-22 09:03] VITALS: BP 151/81; PULSE 69; RESP 18; TEMP 35.9; O2SAT 99
--- NOTE | 2021-11-22 09:08 | ED.URI ---
HPI - URI/Sore Throat General Chief Complaint: Upper Respiratory Infection Stated Complaint: swollen throat Time Seen by Provider: 11/22/21 09:09 Source: patient and RN notes reviewed Mode of arrival: ambulatory Limitations: no limitations History of Present Illness HPI Narrative: 46-year-old male presents to the [facility] with stating he feels like his throat is swollen. Son with same symptoms. Denies any fevers. No trouble swallowing. Not drooling. Denies chest pain or abdominal pain. Patient reports nasal congestion for about 2 weeks. States he developed body aches and a sore throat yesterday. Has taken ibuprofen and Claritin. Related Data Home Medications Medication Instructions Recorded Confirmed No Home Medications 11/22/21 11/22/21 Allergies Allergy/AdvReac Type Severity Reaction Status Date / Time erythromycin base Allergy Other Verified 11/03/21 15:07 Review of Systems Review of Systems: All systems reviewed & are unremarkable except as noted in HPI and below Constitutional: Constitutional: Reports no additional constitutional complaints, Denies chills and Denies fever(s) Eyes: Eyes: Reports no additional eye complaints ENT: Reports as per HPI, Reports nasal congestion and Reports sore throat Cardiovascular: Cardiovascular: Reports no additional cardiovascular complaints Respiratory: Respiratory: Reports no additional respiratory complaints Gastrointestinal: Gastrointestinal: Reports no additional gastrointestinal complaints Musculoskeletal: Musculoskeletal: Reports no additional musculoskeletal complaints Integumentary/Breasts: Skin/Breast: Reports system reviewed and no additional complaints, except as docu Neurologic: Reports system reviewed and no additional complaints, except as documented Psychiatric: Psychiatric: Reports no additional psychiatric complaints Allergic/Immunologic: Allergic/Immunologic: Reports no additional allergic/immunologic complaints [facility] Past Medical History Medical History Hypertension Non-alcoholic fatty liver disease Thyroid condition Surgical History Surgical History H/O colonoscopy History of esophagogastroduodenoscopy (EGD) Social History Social History Smoking status: Former smoker Gender identity (if verbalized by the patient): Male Comments At the time of my signature, I reviewed and agree with the nursing past medical, surgical, social, and family history. There is no relevant family history pertinent to the patient complaint. Exam Const: General: healthy appearing, no acute distress and alert Nutritional Appearance: well nourished and obese Orientation/consciousness: patient oriented x3 Limitations: no limitations HENMT: Head: normal to inspection Ears: external ears normal, TM's normal bilaterally and EAC's normal General nose exam: Normal external nose present and Normal nares present Face and sinus: normal facial exam Mouth: Yes Normal oral and palatal mucosa present, Yes lip normal and Yes moist mucous membranes Throat: uvula midline, posterior oropharynx abnormal cobblestoning; no edema, no erythema and no exudates and postnasal drainage Eyes: General: appearance normal, both eyes and all related structures Pupils: Equal, round and reactive pupils present Neck: Neck: normal visual inspection, no lymphadenopathy and no meningeal signs Chest: Chest palpation & inspection: normal inspection of the chest Resp: Effort & Inspection: normal respiratory effort and no use of accessory muscles Auscultation: clear to auscultation bilaterally, no crackles, no rales, no rhonchi and no wheezes Cardio: Rate: regular rate Rhythm: regular rhythm Back/Spine/Pelvis: Cervical Spine: normal cervical lordosis Thoracic/Lumbar Spine: thoracic and lumbar spine normal to inspection
== END 2021-11-22 10:02 | disposition home or self-care (01) ==
PROVIDERS: Emergency Provider Nurse Practitioner; PCP Emergency Medicine
DX: J06.9 Acute upper respiratory infection, unspecified (principal); I10 Essential (primary) hypertension; K76.0 Fatty (change of) liver, not elsewhere classified; Z87.891 Personal history of nicotine dependence; Z20.822 Contact with and (suspected) exposure to COVID-19
CPT/HCPCS: 87081; 87426; 87880; 99213; C9803; G0463

== ENCOUNTER 2021-12-17 10:33 | Emergency (ER) | payer OTHER, SELFPAY ==
[2021-12-17] VITALS (22 sets, daily range): BP systolic 146–173; BP diastolic 79–92; PULSE 74–95; RESP 14–24; TEMP 36.6; O2SAT 93–99
[2021-12-17 10:47] LABS: Basophils Percent Auto 0.2 % (0.2-1.2); Eosinophils Absolute Auto 0.1 K/mm3 (0-0.3); Eosinophils Percent Auto 1.2 % (0-4.4); Hematocrit 42.2 % (42.0-52.0); Hemoglobin 14.3 g/dL (14.0-18.0); Immature Granulocyte Absolute 0.02 K/mm3 (0.00-0.031); Immature Granulocyte Percent A 0.2 % (0-0.5); Lymphocytes Absolute Auto 1.08 K/mm3 (0.9-3.2); Mean Corpuscular HGB Conc 33.9 g/dl (32-36); Mean Corpuscular Hemoglobin 29.4 pg (26-34); Mean Corpuscular Volume 86.8 fl (80-100); Mean Platelet Volume 9.5 fl (7.4-10.4); Monocytes Absolute Auto 0.6 K/mm3 (0.1-0.6); Monocytes Percent Auto 7.6 % (2.6-8.5); Neutrophils Absolute Auto 6.5 K/mm3 (1.3-6.7); Neutrophils Percent Auto 77.8 % (45.5-73.1); Platelet Count Result 193 k/mm3 (150-375); Red Blood Count 4.86 M/mm3 (4.6-6.20); Red Cell Distribution Width 12.9 % (11.5-14.5); White Blood Count 8.3 K/mm3 (4.5-10.0)
[2021-12-17 10:57] LABS: Alanine Aminotransferase 33 U/L (6-50); Alkaline Phosphatase 71 U/L (38-126); Anion Gap 11 mmol/L (8-16); Aspartate Amino Transferase 25 U/L (17-59); Bilirubin,Total 0.6 mg/dL (0.2-1.3); Blood Urea Nitrogen 12 mg/dL (9-20); Calcium 8.9 mg/dL (8.4-10.2); Carbon Dioxide 26 mmol/L (22-30); Chloride 100 mmol/L (98-107); Estimated CRCL calculation 152 ml/min; Estimated Glomerular Filt Rate > 60; Glucose 243 mg/dL (65-110); Lipase 462 U/L (23-300); Potassium 3.8 mmol/L (3.4-5.0); Sodium 137 mmol/L (137-145)
[2021-12-17] MEDS: MORPHINE SULFATE (*CRX) 4 MG/ML INJ IV PUSH (11:35)
[2021-12-17] MEDS: SODIUM CHLORIDE 0.9% IV 1,000 ML 999 ML IV CONT (11:35)
[2021-12-17 13:12] LABS: Appearance Urine Clear (Clear); Bilirubin Urine Negative (Negative); Blood Urine Trace-intact (Negative); Color Urine Yellow (Yellow); Glucose Urine UA 1+ mg/dL (Negative); Ketones Urine Negative (Negative); Leukocyte Esterase Ur Negative LEU/UL (Negative); Nitrate Urine Negative (Negative); Protein Urine Negative (Negative); Urobilinogen Urine 0.2 mg/dL (<2.0)
[2021-12-17 13:13] LABS: Add Urine Microscopic? YES; Amorphous Sediment Urine Few; Mucus Urine Rare /lpf; WBC Urine 0-3 /hpf
--- NOTE | 2021-12-17 14:24 | ED.GENADULT ---
HPI - General Adult General Chief complaint: Abdominal Pain Stated complaint: left abd pain Time Seen by Provider: 12/17/21 10:37 History of Present Illness HPI narrative: Patient is a 46-year-old male who presents ER with abdominal pain. Left upper quadrant and epigastrium. Ongoing over the last day. Was seen at [facility] last night. He was diagnosed with pancreatitis after having a CT scan and blood work performed. He was given some fentanyl and discharged home. Patient reports he is recently been started on Augmentin for a sinus infection. No fevers or chills or sweats. No chest pain or chest pressure. Has not noticed any pain with eating. No history of diverticulitis. No diarrhea. No urinary frequency/urgency/dysuria. Related Data Allergies Allergy/AdvReac Type Severity Reaction Status Date / Time erythromycin base Allergy Other Verified 12/17/21 10:40 Review of Systems Review of Systems: All systems reviewed & are unremarkable except as noted in HPI and below Constitutional: Constitutional: Denies chills, Denies fatigue and Denies fever(s) ENT: Reports nasal congestion and Denies sore throat Cardiovascular: Cardiovascular: Denies chest pain, Denies rapid heart rate and Denies radiating jaw, neck or arm pain Respiratory: Respiratory: Denies cough and Denies dyspnea Gastrointestinal: Gastrointestinal: Reports abdominal pain, Denies nausea and Denies vomiting Genitourinary: Genitourinary: Denies hematuria, Denies dysuria, Denies testicular pain and Denies urinary frequency PMFSH Past Medical History Medical History Hypertension Non-alcoholic fatty liver disease Thyroid condition Surgical History Surgical History H/O colonoscopy History of esophagogastroduodenoscopy (EGD) Social History Social History Smoking status: Former smoker Gender identity (if verbalized by the patient): Male Exam Narrative: GENERAL: Well-appearing, well-nourished, and in no acute distress. HEAD: Normocephalic, atraumatic. CHEST: Clear to auscultation. No respiratory distress. HEART: Regular rate and rhythm. Normal peripheral pulses. ABDOMEN: Soft, tender palpation left upper quadrant, nondistended, normal active bowel sounds. EXTREMITIES: Normal range of motion. No edema. SKIN: Warm, dry, no rash. NEURO: Alert and oriented x3. PSYCH: Normal mood and affect. Course Course Emergency Course: Informed of results. Patient reports he did have some alcohol a few days ago for his brother's birthday. Discussed he needs bowel rest and to drink clear fluids. Will provide some supportive medication for home. Recommend follow-up with PCP. Patient verbalized understanding. Vital Signs Vital signs: Vital Signs Temperature 97.8 F 12/17/21 10:37 Pulse Rate 90 12/17/21 10:37 Respiratory Rate 18 12/17/21 10:37 Blood Pressure 173/87 H 12/17/21 10:37 Pulse Oximetry 95 12/17/21 10:37 Oxygen Delivery Room Air 12/17/21 10:37 Temperature 97.8 F 12/17/21 10:37 Pulse Rate 79 12/17/21 14:52 Respiratory Rate 20 12/17/21 14:52 Blood Pressure 155/90 H 12/17/21 14:30 Pulse Oximetry 93 12/17/21 14:52 Oxygen Delivery Room Air 12/17/21 10:37 Medical Decision Making Vital Signs Vital Signs: Vital Signs Temperature 97.8 F 12/17/21 10:37 Pulse Rate 90 12/17/21 10:37 Respiratory Rate 18 12/17/21 10:37 Blood Pressure 173/87 H 12/17/21 10:37 Pulse Oximetry 95 12/17/21 10:37 Oxygen Delivery Room Air 12/17/21 10:37 Temperature 97.8 F 12/17/21 10:37 Pulse Rate 79 12/17/21 14:52 Respiratory Rate 20 12/17/21 14:52 Blood Pressure 155/90 H 12/17/21 14:30 Pulse Oximetry 93 12/17/21 14:52 Oxygen Delivery Room Air 12/17/21 10:37 Lab Data Result diagrams: 12/17/21 10:42
== END 2021-12-17 15:39 | disposition home or self-care (01) ==
PROVIDERS: Emergency Provider Emergency Medicine; PCP Emergency Medicine
DX: K85.90 Acute pancreatitis without necrosis or infection, unspecified (principal); E07.9 Disorder of thyroid, unspecified; K76.9 Liver disease, unspecified; Z87.891 Personal history of nicotine dependence
CPT/HCPCS: 36415; 80053; 81001; 83690; 85025; 96361; 96374; 99284; J2270; J7030

== ENCOUNTER 2021-12-22 13:51 | Emergency (ER) | payer OTHER, SELFPAY ==
[2021-12-22 14:01] VITALS: BP 145/72; PULSE 95; RESP 18; TEMP 36.4; O2SAT 96
--- NOTE | 2021-12-22 14:16 | ED.GENADULT ---
HPI - General Adult General Chief complaint: Medical Clearance Stated complaint: work note Source: patient Mode of arrival: ambulatory Limitations: no limitations History of Present Illness HPI narrative: Patient presents to the facility requesting a note to allow him to return to work tomorrow. He states he was seen in the ER on 12/17/21 at [facility] and was diagnosed with pancreatitis. It was thought that this could have been the result of recent augmentin use. He states he was experiencing left sided abdominal pain. He states his pain is essentially resolved. He was following a liquid diet but did consume solid food yesterday and today without difficulty. No nausea or vomiting. No additional complaints or concerns. Related Data Allergies Allergy/AdvReac Type Severity Reaction Status Date / Time erythromycin base Allergy Other Verified 12/22/21 13:57 Review of Systems Review of Systems: CONSTITUTIONAL: Denies fever, chills, or sweats. EYES: Denies visual changes, redness, or discharge. ENT: Denies rhinorrhea, congestion, sore throat, or otalgia. CARDIOVASCULAR: Denies chest pain, palpitations, or edema. RESPIRATORY: Denies cough or dyspnea. GASTROINTESTINAL: Reports recent abdominal pain, now resolved. Denies nausea, vomiting, or diarrhea. GENITOURINARY: Denies dysuria or hematuria. SKIN: Denies rash or itching. MUSCULOSKELETAL: Denies back pain, joint pain, or myalgia. NEUROLOGIC: Denies headache, numbness, dizziness, or weakness. PSYCHIATRIC: Denies anxiety or depression. [facility] Past Medical History Medical History Hypertension Non-alcoholic fatty liver disease Pancreatitis Thyroid condition Surgical History Surgical History H/O colonoscopy History of esophagogastroduodenoscopy (EGD) Family History Family History Mother Family history non-contributory Social History Social History (Updated 12/22/21 @ 14:27 by BRITTNEY Cuellar, ) Smoking status: Former smoker Substance use: never Living arrangements: with family Gender identity (if verbalized by the patient): Male Spiritual care concerns: No Exam Narrative: GENERAL: Well-appearing, well-nourished, and in no acute distress. HEAD: Normocephalic, atraumatic. EYES: PERRLA and EOMI. ENT: Nares clear, no rhinorrhea or epistaxis. Mucous membranes moist. Oropharynx without tonsillar hypertrophy exudate or other lesions. Bilateral TMs pearly godoy nonbulging NECK: Supple. No adenopathy or masses. No carotid bruits or JVD CHEST: Clear to auscultation. No respiratory distress. No wheezes rales or rhonchi HEART: Regular rate and rhythm. No murmur heard. Normal peripheral pulses. ABDOMEN: Soft, nontender, nondistended, normal active bowel sounds. EXTREMITIES: Normal range of motion. No edema. SKIN: Warm, dry, no rash. NEURO: No focal deficits. Alert and oriented x3. PSYCH: Normal mood and affect. Course Course Emergency Course: This is a 46-year-old male that presented to the facility requesting a letter allowing him to return to work tomorrow. He was recently diagnosed with pancreatitis. I reviewed his recent lipase and it looks like was mildly elevated. He is now tolerating solid food and has no pain whatsoever. No vomiting. I did provide him with education regarding things that can irritate the pancreas. Advised he avoid greasy meals and alcohol. Letter for work was provided. He should follow up outpatient for further evaluation and treatment and go to the ER for worsening symptoms. Pt in agreement with plan of care. Level of Care: Express Care Visit Vital Signs Vital signs: Vital Signs Temperature 36.4 C L 12/22/21 14:01 Pulse Rate 95 12/22/21 14:01 Respiratory Rate 18 12/22/21 14:01 Blood Pressure 145/72 H 12/22/21 14:01 Pulse Oximetry
== END 2021-12-22 14:15 | disposition home or self-care (01) ==
PROVIDERS: Emergency Provider Nurse Practitioner
DX: K85.90 Acute pancreatitis without necrosis or infection, unspecified (principal); I10 Essential (primary) hypertension; K76.0 Fatty (change of) liver, not elsewhere classified; Z87.891 Personal history of nicotine dependence
CPT/HCPCS: 99211; G0463

== ENCOUNTER 2022-02-11 19:01 | Emergency (ER) | payer OTHER, SELFPAY ==
--- NOTE | 2022-02-11 19:23 | ED.URI ---
HPI - URI/Sore Throat General Chief Complaint: Upper Respiratory Infection Stated Complaint: Sinus, Ear Irritation Time Seen by Provider: 02/11/22 19:35 Source: patient Mode of arrival: ambulatory Limitations: no limitations History of Present Illness HPI Narrative: Abad is a 46-year-old male patient presenting to clinic today with complaints of sinus congestion / pressure, bilateral ear pain, dizziness, ringing in the ears, foul-smelling breath, and nasal discharge that is foul. He denies any fever or chills. States this has been going on for several weeks. MD elicited complaint: sore throat and nasal congestion Related Data Allergies Allergy/AdvReac Type Severity Reaction Status Date / Time erythromycin base Allergy Other Verified 12/22/21 13:57 Review of Systems Review of Systems: Pertinent positives per HPI. Patient denies any fever, chills, rash, headache, visual changes, dizziness, cough, shortness of breath, chest pain, palpitations, nausea, vomiting, diarrhea, constipation, abdominal pain, or any urinary issues. [facility] Past Medical History Medical History Hypertension Non-alcoholic fatty liver disease Pancreatitis Thyroid condition Surgical History Surgical History H/O colonoscopy History of esophagogastroduodenoscopy (EGD) Family History Family History Mother Family history non-contributory Social History Social History Smoking status: Former smoker Substance use: never Gender identity (if verbalized by the patient): Male Spiritual care concerns: No Comments At the time of my signature, I reviewed and agree with the nursing past medical, surgical, social, and family history. There is no relevant family history pertinent to the patient complaint. Exam Narrative: General: Well-developed, obese, in no apparent distress Head: Normocephalic, atraumatic Eyes: Pupils equally round and reactive to light bilaterally, EOM intact, sclera and conjunctive clear, no discharge, lids normal Ears: TMs intact and clear, ear canals clear, no drainage, grossly hearing normal. Nose: Nares patent, Green nasal discharge, severe inflammation, maxillary and frontal sinus tenderness. Mouth: Oral pharynx without lesions or masses, good dentition, MMM. postnasal drip Neck: Supple, trachea midline, no enlargement of anterior or posterior cervical nodes, no thyroid masses or goiter palpable. Cardio: Regular rate and rhythm, s1 and s2 normal, no murmur appreciated. Resp: Clear to auscultation bilaterally, no rhonchi, rales, wheezing or rubs Course Course Emergency Course: Portions of this record may have been created with voice recognition software. Level of Care: Express Care Visit Vital Signs Vital signs: Vital signs reviewed MDM - URI/Sore Throat MDM Narrative Medical decision making narrative: at the time of visit patient is resting comfortably on the exam table. I suspect patient has acute bacterial rhinosinusitis and I will send him in a prescription for Augmentin prednisone. Supportive measures were discussed with the patient he voiced understanding discharge instructions agrees to treatment plan Differential Diagnosis Differential diagnosis: Likely upper respiratory infection, otitis media, sinusitis, viral infection, bronchitis, influenza, pharyngitis and other ( COVID) Discharge Plan Discharge Clinical Impression: Acute bacterial rhinosinusitis Patient Disposition: Home, Self-Care Condition: Stable Instructions: Antibiotic Form, Rhinosinusitis (ED) Additional Instructions: Take prescription medications only as prescribed- Augmentin and prednisone Increase fluids and stay well hydrated Tylenol/motrin for pain/fever Flonase
[2022-02-11 19:29] VITALS: BP 150/94; PULSE 81; RESP 18; TEMP 36.6; O2SAT 97
== END 2022-02-11 19:48 | disposition home or self-care (01) ==
PROVIDERS: Emergency Provider Nurse Practitioner Family; PCP Emergency Medicine
DX: J01.90 Acute sinusitis, unspecified (principal); B96.89 Other specified bacterial agents as the cause of diseases classified elsewhere; I10 Essential (primary) hypertension; Z87.891 Personal history of nicotine dependence
CPT/HCPCS: 99213; G0463

== ENCOUNTER 2022-05-24 10:11 | Emergency (ER) | payer OTHER, SELFPAY ==
[2022-05-24 10:21] VITALS: BP 174/99; PULSE 77; RESP 20; TEMP 36.3; O2SAT 98
--- NOTE | 2022-05-24 10:29 | ED.URI ---
HPI - URI/Sore Throat General Chief Complaint: Upper Respiratory Infection Stated Complaint: Sinus Time Seen by Provider: 05/24/22 10:20 Source: patient Mode of arrival: ambulatory Limitations: no limitations History of Present Illness HPI Narrative: Abad is a 46-year-old male patient presenting to the clinic today with complaints of sinus congestion x2-3 weeks. He reports that he is having a foul smell and a foul taste in his mouth. Is blowing out green/brown nasal drainage. Does have a lot of sinus pressure. Has tried taking some prednisone and [id number] medications without relief. MD elicited complaint: rhinorrhea, nasal congestion and sinus pain Related Data Allergies Allergy/AdvReac Type Severity Reaction Status Date / Time erythromycin base Allergy Other Verified 05/24/22 10:13 Review of Systems Review of Systems: Pertinent positives per HPI. Patient denies any fever, chills, rash, visual changes, dizziness, cough, shortness of breath, chest pain, palpitations, nausea, vomiting, diarrhea, constipation, abdominal pain, or any urinary issues. PMFSH Past Medical History Medical History Hypertension Non-alcoholic fatty liver disease Pancreatitis Thyroid condition Surgical History Surgical History H/O colonoscopy History of esophagogastroduodenoscopy (EGD) Family History Family History Mother Family history non-contributory Social History Social History Smoking status: Former smoker Substance use: never Living arrangements: with family Gender identity (if verbalized by the patient): Male Spiritual care concerns: No Comments At the time of my signature, I reviewed and agree with the nursing past medical, surgical, social, and family history. There is no relevant family history pertinent to the patient complaint. Exam Narrative: General: Well-developed, well nourished, in no apparent distress Head: Normocephalic, atraumatic Eyes: Pupils equally round and reactive to light bilaterally, EOM intact, sclera and conjunctive clear, no discharge, lids normal Ears: TMs intact and clear, ear canals clear, no drainage, grossly hearing normal. Nose: Nares patent, green nasal discharge, severe inflammation, maxillary and frontal sinus tenderness. Mouth: Oral pharynx without lesions or masses, good dentition, MMM. Oropharynx red, postnasal drip Neck: Supple, trachea midline, no enlargement of anterior or posterior cervical nodes, no thyroid masses or goiter palpable. Cardio: Regular rate and rhythm, s1 and s2 normal, no murmur appreciated. Resp: Clear to auscultation bilaterally, no rhonchi, rales, wheezing or rubs Course Course Emergency Course: Portions of this record may have been created with voice recognition software. Level of Care: Express Care Visit Vital Signs Vital signs: Vital Signs Temperature 36.3 C L 05/24/22 10:21 Pulse Rate 77 05/24/22 10:21 Respiratory Rate 20 05/24/22 10:21 Blood Pressure 174/99 H 05/24/22 10:21 Pulse Oximetry 98 05/24/22 10:21 Oxygen Delivery Room Air 05/24/22 10:21 Temperature 36.3 C L 05/24/22 10:21 Pulse Rate 77 05/24/22 10:21 Respiratory Rate 20 05/24/22 10:21 Blood Pressure 174/99 H 05/24/22 10:21 Pulse Oximetry 98 05/24/22 10:21 Oxygen Delivery Room Air 05/24/22 10:21 Vital signs reviewed MDM - URI/Sore Throat MDM Narrative Medical decision making narrative: At the time of visit patient is resting comfortably on the exam table. I suspect patient has acute bacterial rhinosinusitis. Prescription for Augmentin and prednisone was sent to the pharmacy and supportive measures were discussed with the patient and he voiced understanding discharge instructions
== END 2022-05-24 10:37 | disposition home or self-care (01) ==
PROVIDERS: Emergency Provider Nurse Practitioner Family; PCP Emergency Medicine
DX: J01.90 Acute sinusitis, unspecified (principal); B96.89 Other specified bacterial agents as the cause of diseases classified elsewhere; I10 Essential (primary) hypertension; Z87.891 Personal history of nicotine dependence
CPT/HCPCS: 99213; G0463

== ENCOUNTER 2022-06-30 11:48 | Emergency (ER) | payer OTHER, SELFPAY ==
[2022-06-30 11:51] VITALS: BP 168/87; PULSE 85; RESP 16; TEMP 36.1; O2SAT 97
--- NOTE | 2022-06-30 13:09 | PC.NURSE ---
No answer when called from lobby.
--- NOTE | 2022-06-30 13:22 | PC.NURSE ---
No answer when called from lobby.
== END 2022-06-30 13:22 | disposition left against medical advice (07) ==
LOC: ANHED 13:33
PROVIDERS: PCP Emergency Medicine
DX: M25.511 Pain in right shoulder (principal)
CPT/HCPCS: 99199

== ENCOUNTER 2022-08-26 15:34 | Emergency (ER) | payer OTHER, SELFPAY ==
--- NOTE | 2022-08-26 15:41 | ED.GENADULT ---
HPI - General Adult General Chief complaint: Upper Respiratory Infection Stated complaint: Bad headache and joints & body hurts Time Seen by Provider: 08/26/22 15:44 Source: patient, RN notes reviewed and old records reviewed Mode of arrival: ambulatory Limitations: no limitations History of Present Illness HPI narrative: 46-year-old male presents to the [facility] complaints of a left ear pain, headache, blurry vision, dizziness, abdominal pain, chest congestion and diarrhea. Patient reports this is the worst headache of his life associated with dizziness and blurry vision. Reports posterior head pain. Reports right upper, epigastric and left upper abdominal pain. Patient states symptoms started about 2 weeks ago but over the last couple days has become a lot worse especially his headache and dizziness. Has a history of type 2 diabetes as well as pancreatitis. States it is the worst headache of his life associated with blurry vision. Has taken ibuprofen with no relief. Blood sugar checked in clinic at 276. Patient states that he does not check it at home. Related Data Home Medications Medication Instructions Recorded Confirmed atorvastatin 10 mg tablet 10 mg DIRECTED 08/26/22 08/26/22 ibuprofen 800 mg tablet 800 mg DIRECTED 08/26/22 08/26/22 metformin 500 mg tablet,extended 500 mg PO DIRECTED 08/26/22 08/26/22 release 24 hr Allergies Allergy/AdvReac Type Severity Reaction Status Date / Time erythromycin base Allergy Other Verified 06/30/22 11:50 Review of Systems Review of Systems: All systems reviewed & are unremarkable except as noted in HPI and below Constitutional: Constitutional: Reports as per HPI and Reports body ache(s) Eyes: Eyes: Reports no additional eye complaints ENT: Reports as per HPI and Reports otalgia Cardiovascular: Cardiovascular: Reports no additional cardiovascular complaints, Denies chest pain and Denies dyspnea Respiratory: Respiratory: Reports as per HPI, Reports chest congestion, Denies cough and Denies dyspnea Gastrointestinal: Gastrointestinal: Reports as per HPI, Reports abdominal pain, Reports nausea and Denies vomiting Musculoskeletal: Musculoskeletal: Reports no additional musculoskeletal complaints Integumentary/Breasts: Skin/Breast: Reports system reviewed and no additional complaints, except as docu Neurologic: Reports as per HPI, Reports dizziness and Reports headache(s) Psychiatric: Psychiatric: Reports no additional psychiatric complaints Allergic/Immunologic: Allergic/Immunologic: Reports no additional allergic/immunologic complaints [facility] Past Medical History Medical History (Updated 08/26/22 @ 16:13 by Nuha Ramos APRN) History of diabetes mellitus, type II Hypertension Non-alcoholic fatty liver disease Pancreatitis Thyroid condition Surgical History Surgical History H/O colonoscopy History of esophagogastroduodenoscopy (EGD) Family History Family History Mother Family history non-contributory Social History Social History Smoking status: Former smoker Substance use: never Living arrangements: with family Gender identity (if verbalized by the patient): Male Spiritual care concerns: No Comments At the time of my signature, I reviewed and agree with the nursing past medical, surgical, social, and family history. There is no relevant family history pertinent to the patient complaint. Exam Const: General: cooperative, healthy appearing, well developed, alert, uncomfortable, well nourished and overweight Nutritional Appearance: well nourished Orientation/consciousness: patient oriented x3 Limitations: no limitations HENMT: Head: normal to inspection Ears: hearing grossly normal bilaterally, external ears normal, EAC's normal, no periauricular adenopathy
[2022-08-26 15:44] VITALS: BP 144/79; PULSE 104; RESP 16; TEMP 36.7; O2SAT 96
[2022-08-26 15:45] VITALS: BP 144/79; PULSE 104; RESP 16; TEMP 36.7; O2SAT 96
[2022-08-26 16:00] LABS: Glucose Point of Care 276 mg/dl (65-105)
== END 2022-08-26 16:00 | disposition short-term general hospital (02) ==
LOC: EXPCOLL 15:38
PROVIDERS: Emergency Provider Nurse Practitioner; PCP Family Medicine
DX: R51.9 Headache, unspecified (principal); R42 Dizziness and giddiness; R10.9 Unspecified abdominal pain; R19.7 Diarrhea, unspecified; H53.8 Other visual disturbances; E11.9 Type 2 diabetes mellitus without complications; I10 Essential (primary) hypertension; K76.0 Fatty (change of) liver, not elsewhere classified; Z79.84 Long term (current) use of oral hypoglycemic drugs
CPT/HCPCS: 82948; 99212; G0463

== ENCOUNTER 2022-09-18 08:37 | Outpatient (CLI) | payer OTHER, SELFPAY ==
--- NOTE | ~2022-09-18 | US_ITS ---
EXAMINATION: US abdomen complete DATE: 09/18/2022 09:17 INDICATION: Elevated liver function tests TECHNIQUE: Multiple grayscale and Doppler ultrasound images of the abdomen were obtained. COMPARISON: 02/18/2021 FINDINGS: The head and body of the pancreas are normal. The pancreatic tail is obscured by bowel gas. The liver demonstrates increased echogenicity, heterogenous echotexture, and decreased through trans mission. No surface nodularity. Normal hepatopetal flow in the main portal vein. There is focal adeno myosis of the gallbladder wall. The gallbladder is otherwise unremarkable with no pericholecystic fl uid or stones. The normal common bile duct measures 4 mm. There was no sonographic Delgado sign. The v isualized portions of the aorta and inferior vena cava are normal. The spleen is normal in appearance and measures 13.2 cm. The right kidney measures 11.9 x 5.6 x 5.9 c m. The left kidney measures 12.5 x 6.3 x 5.3 cm. The kidneys demonstrate normal parenchymal echogenic ity. There is no hydronephrosis. IMPRESSION: 1. Diffuse hepatic steatosis. Reviewed, dictated and finalized at location L.
== END 2022-09-18 08:38 | disposition home or self-care (01) ==
PROVIDERS: PCP Family Medicine; Visit Provider Family Medicine
DX: R74.01 Elevation of levels of liver transaminase levels (principal); K76.0 Fatty (change of) liver, not elsewhere classified
CPT/HCPCS: 76700

== ENCOUNTER 2022-10-08 14:56 | Emergency (ER) | payer OTHER, SELFPAY ==
[2022-10-08 15:05] VITALS: BP 152/86; PULSE 80; RESP 16; TEMP 36.4; O2SAT 99
[2022-10-08 15:12] VITALS: BP 152/86; PULSE 80; RESP 16; TEMP 36.4; O2SAT 99
--- NOTE | 2022-10-08 15:23 | ED.SKABFB ---
HPI - Skin/Abscess/Foreign Bdy General Chief complaint: Skin/Abscess/Foreign Body Stated complaint: rash on body, throat irritation Source: patient Mode of arrival: ambulatory Limitations: no limitations History of Present Illness HPI narrative: 47-year-old male presented for complaint of rash to the left inner elbow since yesterday. Rash appeared after working outside. He has taken Claritin and ibuprofen for symptoms. He also reports left ear pain and ringing for the last couple of days. States he woke with eyes crusted this morning. Denies drainage or eye irritation throughout the day. Denies lip, tongue, or throat swelling, shortness of breath or wheezing. Denies changes to soap, detergent, lotion, or any other exposures. No one else in the house or any contacts with similar symptoms. Related Data Home Medications Medication Instructions Recorded Confirmed atorvastatin 10 mg tablet 10 mg DIRECTED 08/26/22 08/26/22 ibuprofen 800 mg tablet 800 mg DIRECTED 08/26/22 08/26/22 metformin 500 mg tablet,extended 500 mg PO DIRECTED 08/26/22 08/26/22 release 24 hr Singulair 10/08/22 fluticasone propionate 50 intranasal 10/08/22 mcg/actuation nasal spray,suspension losartan 25 mg tablet mg 10/08/22 Allergies Allergy/AdvReac Type Severity Reaction Status Date / Time erythromycin base Allergy Other Verified 10/08/22 15:01 Review of Systems Review of Systems: CONSTITUTIONAL: Denies malaise, chills, or fever. EYES: Denies visual changes, redness, or discharge. ENT: Denies congestion, sinus pain, and sore throat. Reports rhinorrhea, ear pain CARDIOVASCULAR: Denies chest pain, palpitations, or edema. RESPIRATORY: Denies cough or dyspnea. GASTROINTESTINAL: Denies abdominal pain, nausea, vomiting, diarrhea SKIN: Reports rash, itching. MUSCULOSKELETAL: Denies myalgia. NEUROLOGIC: Denies headache. All systems reviewed & are unremarkable except as noted in HPI and below PMFSH Past Medical History Medical History History of diabetes mellitus, type II Hypertension Non-alcoholic fatty liver disease Pancreatitis Thyroid condition Surgical History Surgical History H/O colonoscopy History of esophagogastroduodenoscopy (EGD) Family History Family History Mother Family history non-contributory Social History Social History Smoking status: Former smoker Substance use: never Living arrangements: with family Gender identity (if verbalized by the patient): Male Spiritual care concerns: No Comments At time of signature, agree with nursing past medical, surgical, social and family history. There is no relevant family history pertinent to the presenting complaint Exam Narrative: GENERAL: Well-appearing, and in no acute distress. HEAD: Normocephalic EYES: conjunctivae clear, no drainage or periorbital swelling. PERRLA, EOMI. ENT: Nares clear. Mucous membranes moist. Right tM pearly godoy with dull light reflex; left TM erythematous and bulging, no tragal tenderness. Oropharynx not erythematous without lesions. Tonsils not enlarged and without exudate, no drooling, no hoarseness, no trismus, uvula midline. NECK: Supple. No lymphadenopathy CHEST: Clear to auscultation, breath sounds equal. No wheezing, rhonchi, rales, or stridor. No respiratory distress, speaks in full sentences. HEART: Regular rate and rhythm. No murmur heard. SKIN: Warm, dry, left medial elbow with erythematous vesicular rash consistent with contact dermatitis NEURO: Alert and oriented x3. PSYCH: Normal mood and affect Course Course Emergency Course: Patient is aware of diagnosis, understands and agrees to treatment plan. Anticipatory guidance given. Patient agrees to follow-up as directed and is
== END 2022-10-08 15:26 | disposition home or self-care (01) ==
PROVIDERS: Emergency Provider Nurse Practitioner Family; PCP Family Medicine
DX: L25.9 Unspecified contact dermatitis, unspecified cause (principal); H66.92 Otitis media, unspecified, left ear; Z87.891 Personal history of nicotine dependence; Z79.84 Long term (current) use of oral hypoglycemic drugs; E11.9 Type 2 diabetes mellitus without complications; I10 Essential (primary) hypertension; K76.0 Fatty (change of) liver, not elsewhere classified
CPT/HCPCS: 99213; G0463

== ENCOUNTER 2023-03-04 12:41 | Emergency (ER) | payer OTHER, SELFPAY ==
--- NOTE | ~2023-03-04 | XR_ITS ---
EXAMINATION: XR chest 2V DATE: 03/04/2023 13:53 INDICATION: Shortness of breath and chest pain TECHNIQUE: Frontal and lateral views of the chest are obtained COMPARISON: None available FINDINGS: The lungs are free of acute opacities. No pleural effusion or pneumothorax. The cardiomedia stinal silhouette is normal. There is mild thoracic spondylosis. IMPRESSION: 1. No acute cardiopulmonary abnormality. Reviewed, dictated and finalized at location B. [employer]
[2023-03-04 12:48] VITALS: BP 143/75; PULSE 93; RESP 17; TEMP 36.5; O2SAT 96
[2023-03-04 12:52] LABS: Glucose Point of Care 341 mg/dl (65-105)
--- NOTE | 2023-03-04 13:26 | ED.RECABL ---
HPI - Recheck/Abnormal Lab/Rx General Chief Complaint: Recheck/Abnormal Lab/Rx Stated Complaint: high glucose 344 Time Seen by Provider: 03/04/23 12:56 History of Present Illness HPI narrative: Patient is a 47-year-old male with history of diabetes presenting with hyperglycemia. Patient states that he saw his PCP yesterday who obtained a urinalysis and he received a call today that there is a lot of glucose in it. He checked his sugar today and it was over 300 so he came in for evaluation. States that he used to be on a medication for diabetes but he stopped at because he wanted to try a lifestyle changes to control his sugars. States that he has been feeling lightheaded and having blurry vision. States that he has also had some intermittent shortness of breath and chest pain. Has a mild cough. No abdominal pain, nausea or vomiting, dysuria, hematuria. Patient's states that he drinks a lot a water. Related Data Home Medications Medication Instructions Recorded Confirmed atorvastatin 10 mg tablet 10 mg DIRECTED 08/26/22 08/26/22 ibuprofen 800 mg tablet 800 mg DIRECTED 08/26/22 08/26/22 metformin 500 mg tablet,extended 500 mg PO DIRECTED 08/26/22 08/26/22 release 24 hr Singulair 10/08/22 fluticasone propionate 50 intranasal 10/08/22 mcg/actuation nasal spray,suspension losartan 25 mg tablet mg 10/08/22 Allergies Allergy/AdvReac Type Severity Reaction Status Date / Time erythromycin base Allergy Other Verified 03/04/23 12:43 Review of Systems Review of Systems: All systems reviewed & are unremarkable except as noted in HPI and below PMFSH Past Medical History Medical History History of diabetes mellitus, type II Hypertension Non-alcoholic fatty liver disease Pancreatitis Thyroid condition Surgical History Surgical History H/O colonoscopy History of esophagogastroduodenoscopy (EGD) Family History Family History Mother Family history non-contributory Social History Social History Smoking status: Former smoker Substance use: never Living arrangements: with family Gender identity (if verbalized by the patient): Male Spiritual care concerns: No Exam Narrative: GENERAL: Well-appearing, In no acute distress, pleasant cooperative HEAD: Normocephalic, atraumatic. EYES: PERRLA and EOMI. ENT: Mucous membranes moist. NECK: Supple. CHEST: Clear to auscultation. No respiratory distress. HEART: Regular rate and rhythm ABDOMEN: Soft, nontender, nondistended EXTREMITIES: Normal range of motion SKIN: Warm, dry, no rash. NEURO: Alert and oriented x3. PSYCH: Normal mood and affect. Course Vital Signs Vital signs: Vital Signs Temperature 97.7 F 03/04/23 12:48 Pulse Rate 93 03/04/23 12:48 Respiratory Rate 17 03/04/23 12:48 Blood Pressure 143/75 H 03/04/23 12:48 Pulse Oximetry 96 03/04/23 12:48 Temperature 97.8 F 03/04/23 15:32 Pulse Rate 85 03/04/23 15:32 Respiratory Rate 18 03/04/23 15:32 Blood Pressure 140/70 03/04/23 15:32 Pulse Oximetry 98 03/04/23 15:32 MDM - Recheck/Abnormal Lab/Rx MDM Narrative Medical decision making narrative: 47-year-old male presenting with hyperglycemia. Vitals are stable. Exam is unremarkable. EKG per my interpretation shows normal sinus rhythm, incomplete right bundle-branch block, no ST elevations or depressions. Appears unchanged from prior. CMP was sodium 128, glucose 317. Sodium corrects to 133. Remainder of blood work is unremarkable. Beta hydroxybutyrate is normal. Lipase was normal. UA is unremarkable. COVID negative. Patient received a L of fluids And glucoses are now in the 200s. There is no evidence of DKA. Patient is safe for outpatient
--- NOTE | 2023-03-04 13:29 | ECG_ITS ---
Measurements Intervals [place] Rate: 93 P: 42 IN: 164 QRS: 21 QRSD: 103 T: 34 QT: 352 QTc: 439 Interpretive Statements SINUS RHYTHM INCOMPLETE RIGHT BUNDLE BRANCH BLOCK [90+ ms QRS DURATION, TERMINAL R IN V1/V2, 40+ ms S IN I/aVL/V4/V5/V6] ABNORMAL ECG WARNING: DATA QUALITY MAY AFFECT INTERPRETATION COMPARED TO ECG 08/26/2022 18:12:25 NO SIGNIFICANT CHANGES Electronically Signed On 03-04-2023 16:22:13 [employer] by Pedrito Thomas M.D.
[2023-03-04] MEDS: SODIUM CHLORIDE 0.9% IV 1,000 ML 999 ML IV CONT ×2 (13:39→13:56)
[2023-03-04 13:47] LABS: Basophils Absolute Auto 0.1 K/mm3 (0.0-0.1); Basophils Percent Auto 0.7 % (0.2-1.2); Eosinophils Absolute Auto 0.2 K/mm3 (0-0.3); Eosinophils Percent Auto 2.6 % (0-4.4); Hematocrit 45.1 % (42.0-52.0); Hemoglobin 15.2 g/dL (14.0-18.0); Immature Granulocyte Absolute 0.02 K/mm3 (0.00-0.031); Immature Granulocyte Percent A 0.3 % (0-0.5); Lymphocytes Percent Auto 18.8 % (18.3-44.2); Mean Corpuscular HGB Conc 33.7 g/dl (32-36); Mean Corpuscular Hemoglobin 29.1 pg (26-34); Mean Corpuscular Volume 86.2 fl (80-100); Mean Platelet Volume 9.4 fl (7.4-10.4); Monocytes Absolute Auto 0.5 K/mm3 (0.1-0.6); Monocytes Percent Auto 7.2 % (2.6-8.5); Neutrophils Absolute Auto 4.9 K/mm3 (1.3-6.7); Neutrophils Percent Auto 70.4 % (45.5-73.1); Platelet Count Result 188 k/mm3 (150-375); Red Blood Count 5.23 M/mm3 (4.6-6.20); Red Cell Distribution Width 12.6 % (11.5-14.5); White Blood Count 6.9 K/mm3 (4.5-10.0)
[2023-03-04 13:57] LABS: Alanine Aminotransferase 73 U/L (6-50); Albumin Level 4.2 g/dL (3.5-5.1); Alkaline Phosphatase 96 U/L (38-126); Anion Gap 4 mmol/L (8-16); Aspartate Amino Transferase 76 U/L (17-59); Bilirubin,Total 0.6 mg/dL (0.2-1.3); Blood Urea Nitrogen 7 mg/dL (9-20); Calcium 8.9 mg/dL (8.4-10.2); Carbon Dioxide 23 mmol/L (22-30); Chloride 101 mmol/L (98-107); Estimated CRCL calculation 198 ml/min; Estimated Glomerular Filt Rate > 60; Glucose 317 mg/dL (65-110); Potassium 4.1 mmol/L (3.4-5.0); Sodium 128 mmol/L (137-145)
[2023-03-04 13:59] LABS: Lipase 92 U/L (23-300)
[2023-03-04 14:06] LABS: Appearance Urine Clear (Clear); Bilirubin Urine Negative (Negative); Blood Urine Negative (Negative); Color Urine Yellow (Yellow); Glucose Urine UA 3+ mg/dL (Negative); Ketones Urine Trace mg/dL (Negative); Leukocyte Esterase Ur Negative LEU/UL (Negative); Nitrate Urine Negative (Negative); Protein Urine Negative (Negative); pH Urine 5.5 (5.0-9.0)
[2023-03-04 14:12] LABS: Troponin I < 0.012 ng/mL (0.000-0.034)
[2023-03-04 14:14] LABS: Specific Grav Ur 1.037 (1.001-1.035)
[2023-03-04 14:15] LABS: Add Urine Microscopic? NO
[2023-03-04 14:22] LABS: Beta-Hydroxybutyrate/Acetoacetate 0.08 mmol/L (0.02-0.27)
[2023-03-04 14:25] LABS: Influenza A QL RT-PCR Negative (Negative); Influenza B QL RT-PCR Negative (Negative); RSV RNA, RT-PCR Negative (Negative); SARS-CoV-2 RNA PCR Negative (Negative)
[2023-03-04 14:43] LABS: Glucose Point of Care 239 mg/dl (65-105)
[2023-03-04 15:32] VITALS: BP 140/70; PULSE 85; RESP 18; TEMP 36.6; O2SAT 98
== END 2023-03-04 15:32 | disposition home or self-care (01) ==
PROVIDERS: Emergency Provider Emergency Medicine; PCP Family Medicine
DX: E11.65 Type 2 diabetes mellitus with hyperglycemia (principal); E07.9 Disorder of thyroid, unspecified; I10 Essential (primary) hypertension; Z87.891 Personal history of nicotine dependence; Z79.84 Long term (current) use of oral hypoglycemic drugs; I45.10 Unspecified right bundle-branch block
CPT/HCPCS: 36415; 71046; 80053; 81003; 82010; 82948; 83690; 84484; 85025; 87637; 93005; 96360; 99284; J7030

== ENCOUNTER 2023-05-31 15:52 | Emergency (ER) | payer OTHER, SELFPAY ==
--- NOTE | ~2023-05-31 | XR_ITS ---
EXAMINATION: XR shoulder RT min 2V DATE: 05/31/2023 17:51 INDICATION: Right shoulder pain. TECHNIQUE: 4 views of right shoulder were obtained. COMPARISON: None. FINDINGS: Bone alignment is normal. No fracture. Glenohumeral joint is normal. There is severe acromi oclavicular joint osteoarthritis. IMPRESSION: 1. Severe right acromioclavicular joint osteoarthritis. Reviewed, dictated and finalized at location E.
[2023-05-31 16:08] VITALS: BP 157/92; PULSE 71; RESP 18; TEMP 36.8; O2SAT 97
--- NOTE | 2023-05-31 18:07 | ED.GENADULT ---
HPI - General Adult General Chief complaint: Extremity Injury, Lower Stated complaint: Right shoulder injury Time Seen by Provider: 05/31/23 17:42 Source: patient Mode of arrival: ambulatory Limitations: no limitations History of Present Illness HPI narrative: 47-year-old male presenting for right shoulder pain. He injured it a year ago a transmission fell and he tried to catch it. [place] the shoulder pop. Since then he has been having pain in his right shoulder. Reports the pain got worse over the last few days. No new injuries but has been using more often. He has been trying ibuprofen at home without significant improvement. Related Data Home Medications Medication Instructions Recorded Confirmed atorvastatin 10 mg tablet 10 mg DIRECTED 08/26/22 08/26/22 ibuprofen 800 mg tablet 800 mg DIRECTED 08/26/22 08/26/22 metformin 500 mg tablet,extended 500 mg PO DIRECTED 08/26/22 08/26/22 release 24 hr Singulair 10/08/22 fluticasone propionate 50 intranasal 10/08/22 mcg/actuation nasal spray,suspension losartan 25 mg tablet mg 10/08/22 Allergies Allergy/AdvReac Type Severity Reaction Status Date / Time erythromycin base Allergy Other Verified 05/31/23 15:52 Review of Systems Review of Systems: All systems reviewed & are unremarkable except as noted in HPI and below PMFSH Past Medical History Medical History History of diabetes mellitus, type II Hypertension Non-alcoholic fatty liver disease Pancreatitis Thyroid condition Surgical History Surgical History H/O colonoscopy History of esophagogastroduodenoscopy (EGD) Family History Family History Mother Family history non-contributory Social History Social History Smoking status: Former smoker Substance use: never Living arrangements: with family Gender identity (if verbalized by the patient): Male Spiritual care concerns: No Exam Narrative: Constitutional: Generally well appearing, no acute distress Head: Atraumatic, no deformities. Eyes: Pupils equal, round, and reactive to light. Neck: Supple, no tracheal deviation, no JVD. Musculoskeletal: Normal muscle tone and bulk. No obvious deformities . Right shoulder shows some mild pain with Abduction at the shoulder. mild tenderness over the AC joint without any significant swelling or erythema or warmth. Skin: No rashes. Neurological: Strength 5/5 in extremities. Cranial nerves I-XII grossly intact. Distal sensation intact. Mental Status: Awake, alert and oriented x3. Follows commands Course Vital Signs Vital signs: Vital Signs Temperature 36.8 C 05/31/23 16:08 Pulse Rate 71 05/31/23 16:08 Respiratory Rate 18 05/31/23 16:08 Blood Pressure 157/92 H 05/31/23 16:08 Pulse Oximetry 97 05/31/23 16:08 Oxygen Delivery Room Air 05/31/23 16:08 Temperature 36.8 C 05/31/23 16:08 Pulse Rate 71 05/31/23 16:08 Respiratory Rate 18 05/31/23 16:08 Blood Pressure 157/92 H 05/31/23 16:08 Pulse Oximetry 97 05/31/23 16:08 Oxygen Delivery Room Air 05/31/23 16:08 Medical Decision Making [facility] Narrative Medical decision making narrative: 47-year-old male presenting for right shoulder pain worsening for the last few days. Injury did a year ago. Has been taking ibuprofen. On exam he has got tenderness over the AC joint primarily without any swelling, erythema or warmth. Also pain with range of motion of the right shoulder. No signs of septic joint. x-ray obtained which shows severe AC joint arthritis. Suspect that the cause of his symptoms. Given a dose of Toradol, [place] Here and a prescription for naproxen and lidocaine patches. Pt feeling improved and would like to go home at this point. Return precauti
[2023-05-31] MEDS: HYDROcodone/acetaminophen (*CRX) 5-325 MG TABLET 1 TAB PO (18:26)
[2023-05-31] MEDS: KETOROLAC 30 MG/ML VIAL (*BKC) IM (18:27)
== END 2023-05-31 18:36 | disposition home or self-care (01) ==
PROVIDERS: Emergency Provider Emergency Medicine; PCP Family Medicine
DX: M19.011 Primary osteoarthritis, right shoulder (principal); E11.9 Type 2 diabetes mellitus without complications; I10 Essential (primary) hypertension; Z87.891 Personal history of nicotine dependence; Z79.84 Long term (current) use of oral hypoglycemic drugs
CPT/HCPCS: 73030; 96372; 99283; A9270; J1885

== ENCOUNTER 2023-07-14 09:33 | Emergency (ER) | payer OTHER, SELFPAY ==
--- NOTE | 2023-07-14 09:44 | ED.NAVMDI ---
HPI - Nausea/Vomiting/Diarrhea General Chief complaint: Upper Respiratory Infection Stated complaint: Sinus Time Seen by Provider: 07/14/23 09:55 Source: patient Mode of arrival: ambulatory Limitations: no limitations History of Present Illness HPI Narrative: Abad is a 47-year-old male patient presenting to the clinic today with complaints of sinus congestion, productive cough, and left ear pain for the past few days. He denies any fever chills. This states he has got a lot of chest congestion. Related Data Home Medications Medication Instructions Recorded Confirmed testosterone enanthate 75 mg/0.5 75 mg subcut DIRECTED 07/14/23 07/14/23 mL subcutaneous auto-injector (Xyosted) Allergies Allergy/AdvReac Type Severity Reaction Status Date / Time erythromycin base Allergy Other Verified 05/31/23 15:52 Review of Systems Review of Systems: Pertinent positives per HPI. Patient denies any fever, chills, rash, headache, visual changes, dizziness, shortness of breath, chest pain, palpitations, nausea, vomiting, diarrhea, constipation, abdominal pain, or any urinary issues. PMFSH Past Medical History Medical History History of diabetes mellitus, type II Hypertension Non-alcoholic fatty liver disease Pancreatitis Thyroid condition Surgical History Surgical History H/O colonoscopy History of esophagogastroduodenoscopy (EGD) Family History Family History Mother Family history non-contributory Social History Social History Smoking status: Former smoker Substance use: never Living arrangements: with family Gender identity (if verbalized by the patient): Male Spiritual care concerns: No Comments At the time of my signature, I reviewed and agree with the nursing past medical, surgical, social, and family history. There is no relevant family history pertinent to the patient complaint. Exam Narrative: General: Well-developed, well nourished, in no apparent distress Head: Normocephalic, atraumatic Eyes: Pupils equally round and reactive to light bilaterally, EOM intact, sclera and conjunctive clear, no discharge, lids normal Ears: Right TMs intact and clear, left TM intact, bulging, red, ear canals clear, no drainage, grossly hearing normal. Nose: Nares patent, clear nasal discharge, mild inflammation, maxillary sinus tenderness. Mouth: Oral pharynx without lesions or masses, good dentition, MMM. Neck: Supple, trachea midline, no enlargement of anterior or posterior cervical nodes, no thyroid masses or goiter palpable. Cardio: Regular rate and rhythm, s1 and s2 normal, no murmur appreciated. Resp: Clear to auscultation bilaterally, no rhonchi, rales, wheezing or rubs Course Course Emergency Course: Portions of this record may have been created with voice recognition software. Level of Care: Express Care Visit Vital Signs Vital signs: Vital signs reviewed MDM - Nausea/Vomiting/Diarrhea MDM Narrative Medical decision making narrative: At the time of visit patient is resting comfortably on the exam table. Patient appears to be nontoxic. I suspect patient has left otitis media with URI. Prescription for prednisone and Augmentin was sent to the pharmacy. Supportive measures were discussed with the patient and they voiced understanding discharge instructions and agrees to treatment plan. Return precautions reviewed Differential Diagnosis Differential diagnosis: Likely other (URI, otitis media, pneumonia, sinus infection, COVID, influenza, bronchitis) Discharge Plan Discharge Clinical Impression: Acute left otitis media, URI (upper respiratory infection) Patient Disposition: Home, Self-Care Condition: Stable Instructions: Antibio
[2023-07-14 09:53] VITALS: BP 136/75; PULSE 90; RESP 18; TEMP 36.9; O2SAT 96
== END 2023-07-14 10:11 | disposition home or self-care (01) ==
PROVIDERS: Emergency Provider Nurse Practitioner Family; PCP Family Medicine
DX: H66.92 Otitis media, unspecified, left ear (principal); J06.9 Acute upper respiratory infection, unspecified; Z87.891 Personal history of nicotine dependence; E11.9 Type 2 diabetes mellitus without complications; I10 Essential (primary) hypertension; K76.0 Fatty (change of) liver, not elsewhere classified
CPT/HCPCS: 99213; G0463

== ENCOUNTER 2024-06-28 17:21 | Emergency (ER) | payer OTHER, SELFPAY ==
--- NOTE | ~2024-06-28 | CT_ITS ---
History: Headache and blurry vision PROCEDURE: CT head without contrast. COMPARISON: 08/26/2022 TECHNIQUE: Axial imaging of the head performed from the skull base to the vertex without IV contrast. Sagittal a nd coronal reformations obtained. DLP: 681 mGy-cm FINDINGS: The ventricles are normal in size, shape and position. There is no mass, mass effect or midline shift. There is no abnormal extra-axial fluid collection or intracranial hemorrhage. Visualized paranasal sinuses are clear. The mastoid air cells are well aerated. No acute displaced fractures within the overlying cranium. Impression: No acute intracranial hemorrhage or suspicious mass effect. Reviewed, dictated and finalized at location A. Impression: No acute intracranial hemorrhage or suspicious mass effect.
--- NOTE | ~2024-06-28 | XR_ITS ---
CHEST RADIOGRAPH, PA AND LATERAL CLINICAL HISTORY: dizziness . COMPARISON: 03/04/2023 TECHNIQUE: PA and lateral views of the chest. FINDINGS The cardiomediastinal silhouette is unremarkable. The lungs are clear. Visualized osseous structures and soft tissues are unremarkable. IMPRESSION: No focal infiltrate or effusion. Reviewed, dictated and finalized at location A.
--- OUTSIDE RECORDS SUMMARY | 2024-06-28 17:23 | XMS_ITS | Encounter Summary ---
Author Organization [facility] Address [address] [place] [address] Phone Care Team Providers Care Calculation Clerk Name Role Phone Rhoda Sawant MD Primary Care Provider [phone] Ata Rosas MD Unavailable Getachew Lee APRN, CNP Unavailable [phone] Reason for Visit * Reason Comments Medication Refill Encounter Details Date Type Department Care Team (Late st Contact Info) Description 09/07/2023 Refill COUNT INCLUDES [facility] [address] [place] [address] Ata Rosas MD [address] [address] Medication Refill Social History Tobacco Use Types Packs/Day Years Used Date Smoking Tobacco: Former Cigarettes Smokeless Tobacco: Never Alcohol Use Standard Drinks/Week Comments Not Currently 0 (1 standard drink = 0.6 oz pur e alcohol) AUDIT-C Answer Date Recorded Frequency of Alcohol Consumption Never 03/31/2019 Average Number of Drinks Not on file 020 Frequency of Binge Drinking Not on file 11/2019 Sexually Active Control Partners Comments Not Currently Sex and Gender Information Value Date Recorded Sex Assigned at Not on file Legal Sex Male 7:51 PM CDT Gender Identity Not on file Sexual Orientation Not on file documented as of this encounter Miscellaneous Notes * Telephone Encounter - Getachew Lee APRN, ECHOCARDIOGRAPH TECH - 09/08/2023 11:58 AM CDT Needs T level repeated * Telephone Encounter - Analilia Aguilar RN - 09/07/2023 3:54 PM CDT Medication failed the protocol, provider to review and approve the medication order if appropriate. Requested Prescriptions Pending Prescriptions Disp Refills Xyosted 75 MG/0.5ML Solution Auto-injector [Pharmacy Med Name: XYOSTED 75 MG/0.5 ML AUTO-INJ] 1 Sig: INJECT 75MG UNDER THE SKIN ONCE WEEKLY Not Delegated - Androgens Protocol Failed - 09/07/2023 2:20 PM Failed - This refill cannot be delegated Passed - Visit with relevant provider in past 12 months or upcoming 90 days Recent Visits Date Type Provider Dept 08/18/23 Office Visit Getachew Lee APRN, CNP [facility] [place] 05/19/23 Office Visit Getachew Lee APRN, CNP [facility] [place] 04/21/23 Office Visit Getachew Lee APRN, LISBETH [facility] [place] 03/31/23 Office Visit Getachew Lee APRN, CNP [facility] [place] 02/25/23 Procedure Visit Ata Rosas MD [facility] [place] 01/13/23 Office Visit Getachew Lee APRN, CNP [facility] [place] 11/25/22 Office Visit Getachew Lee APRN, CNP [facility] [place] 10/14/22 Office Visit Getachew Lee APRN, LISBETH [facility] [place] Showing recent visits within past 365 days and meeting all other requirements Future Appointments No visits were found meeting these conditions. Showing future appointments within next 90 days and meeting all other requirements documented in this encounter Plan of Treatment Not on file documented as of this encounter Visit Diagnoses Diagnosis Hypogonadism in male documented in this encounter Care Teams Calculation Clerk Relationship Specialty Start Date End Date Rhoda Sawant MD [address] [facility] [address] [place] [address] PCP - General Family Medicine 12/01/22 Ata Rosas MD [address] [facility] [address] [place] [address] Consulting Physician Urological Surgery 02/25/23 Getachew Lee, COUPON AND BOND COLLECTION CLERK, ECHOCARDIOGRAPH TECH [address] [place] [address] Nurse Practitioner Advanced Practice Nurse 10/14/22 documented as of this encounter
--- OUTSIDE RECORDS SUMMARY | 2024-06-28 17:23 | XMS_ITS | Clinical Summary ---
Author Organization [facility] [employer] Address [address] [place] [address] Care Team Providers Care Sales Office Administrator Name Role Phone Kvng Cutler MD Primary Care Provider [phone] Source Comments [facility],non-owned Affiliates and Associated Physician Practices is amultiple site organization consisting of ambulatory clinics and hospital sitesin [place], [place], [place] and [place]. This disclosure is being madepursuant to the Care Everywhere program and may not contain all information available regarding this patient. Last updated 17.[facility] [employer] Allergies Active Allergy Reactions Criticality Noted Date Comments Erythromycin Other 04/10/2020 Hearing loss Ibuprofen Urticaria 08/30/2010 Medications * Be aware that medications may not be up to date on this document. Alwaysverify current medications with the patient. Medication Sig Dispensed Refills Start Date End Date Status fluticasone propionate (Flonase) 50 MCG/ACT nasal spray [place] 2 (two) sprays into each nostril once daily 48 g 4 12/24/2021 Active azelastine (Astelin) 0.1 % nasal spray [place] 1 (one) spray to 2 (two) sprays into each nostril 2 times daily Aim tip of spray bottle towards the SAME EYE as the nostril you are spraying in (e.g. when spraying into the left nostril, aim it towards the left eye) 30 mL 3 12/24/2021 Active Active Problems Problem Noted Date Diagnosed Date Laryngopharyngeal reflux (LPR) 04/10/2020 Assessment & Plan (04/10/2020 11:42 AM SAWMILL OR TIMBER YARD WORKER): Flexible laryngoscopy deferred due to recent positive COVID test. Mirrior exam did reveal some reflux changes. Patient was provided with educational material regarding reflux precautions. Patient was instructed to refrain from eating a meal approximately 3 hours prior to bedtime. Patient was instructed to elevate the head of the bed by approximately 8 inches. Patient was to refrain from consuming spicy greasy fatty foods, dairy products, and excessive caffeine use. Patient was also advised to increase water consumption. Patient was also instructed on weight reduction and exercise regimen. Patient was also instructed on the importance of compliance with medications. I suspect some of the patients symptoms are related to his uncontrolled reflux; will trial twice daily Pepcid then step down to once daily in 6 weeks. He may benefit from a GI referral if symptoms persist. Non-seasonal allergic rhinitis 04/10/2020 Assessment & Plan (04/10/2020 11:45 AM SAWMILL OR TIMBER YARD WORKER): Patient has a history of allergic rhinitis - he previously had adverse reaction to the recommended treatment and subsequently quit using it. Recommend patient start on Flonase, judson and a daily sinus rinse. Educated patient proper nasal spray administration as well as how to perform saline irrigation. Educated patient on the importance of compliance. Follow up in 6 weeks if symptoms persist. Acute recurrent maxillary sinusitis 04/10/2020 Assessment & Plan (04/10/2020 11:47 AM SAWMILL OR TIMBER YARD WORKER): Patient with recurrent sinus infections requiring medical management. Last antibiotic was less than two weeks ago. Exam today did not reveal an acute infection. I suspect a lot of his symptoms are related to his uncontrolled allergic rhinitis and uncontrolled reflux. If his symptoms persist we may want to consider repeat imaging to further evaluate the patient for consideration of surgical intervention. Follow up in 6 weeks. Tinnitus of both ears 04/10/2020 Assessment & Plan (04/10/2020 11:48 AM SAWMILL OR TIMBER YARD WORKER): Patient with bilateral tinnitus - he does have frequent exposure to loud noise in his profession. He has never had an audiologic testing. Recommend patient have a complete audiogram for further evaluation when he returns in 6 weeks. Immunizations Name Administration Dates Next Due TDAP (7yrs+) 08/30/2010 Family History Medical History Relation Name Comments Cancer - Other Other Diabetes - Type 2 Other Hyperlipidemia Other Hypertension Other Relation Name Status Comments Other Social History Tobacco Use Types Packs/Day Years Used Date Smoking Tobacco: Former Smokeless Tobacco: Never Alcohol Use Standard Drinks/Week Comments Not Currently 0 (1 standard drink = 0.6 oz pur e alcohol) Sex and Gender Information Value Date Recorded Sex Assigned at Not on file Gender Identity Not on file Sexual Orientation Not on file Last Filed Vital Signs Vital Sign Reading Time Taken Comments Blood Pressure 126/84 12/24/2021 1:25 PM CDT Pulse 79 12/24/2021 1:25 PM CDT Temperature 37.1 C (98.7 F) 08/30/2010 11:24 AM CDT Respiratory Rate 18 08/30/2010 11:2 4 AM CDT Oxygen Saturation 97% 08/30/2010 1:12 PM CDT Inhaled Oxygen Concentration - - Weight 140.3 kg (309 lb 3.2 oz) 12/24/2021 1:25 PM CDT Height 188 cm (6' 2 ) 12/24/2021 1:25 PM CDT Body Mass Index 39.7 12/24/2021 1:25 PM CDT Plan of Treatment Health Maintenance Due Date Last Done Comments COLOGUARD (AGES 45-75) - COL ON CA SCREENING 1977 COLON MONITORING 1977 COLONOSCOPY - COLON CA SCREENING 1977 CT COLONOGRAPHY - COLON CA SCREENING 1977 Colorectal Cancer Screening 1977 FIT - COLON CA SCREENING 1977 FLEX SIG - COLON CA SCREENING 1977 LIPID TESTING 1977 HIV SCREENING 1992 HEPATITIS C SCREENING 08/23/1995 HEPATITIS B VACCINE (1 of 3 - 19+ 3-dose series) 1996 DTAP/TDAP/TD VACCINES (2 - T d or Tdap) 08/30/2020 08/30/2010 SCREENING FOR DIABETES 12/24/2021 COVID-19 VACCINE (1 - 2023-2 5 season) 2023 DEPRESSION SCREENING 03/23/2024 INFLUENZA VACCINE (Season Ended) 2024 ZOSTER VACCINE (1 of 2) 08/28/2027 HIB VACCINE Aged Out No longer eligi ble based on patient's age to complete this topic HPV VACCINE Aged Out No longer eligi ble based on patient's age to complete this topic MENINGOCOCCAL (Group B) VACC INE SHARED DECISION-MAKING Aged Out No longer eligibl e based on patient's age to complete this topic MENINGOCOCCAL GROUPS A/C/Y/W VACCINE Aged Out No longer eligible b ased on patient's age to complete this topic PNEUMOCOCCAL VACCINE Aged Out No long er eligible based on patient's age to complete this topic Care Teams Sales Office Administrator Relationship Specialty Start Date End Date Kvng Cutler MD [address] [place] [id number] PCP - General Family Medicine 04/10/20
--- OUTSIDE RECORDS SUMMARY | 2024-06-28 17:23 | XMS_ITS | Referral Summary ---
Author Organization [facility] [address] Address [address] [place] [address] Care Team Providers Care Roller Bearing Inspector Name Role Phone Kvng Cutler MD Primary Care Provider [phone] Allergies Active Allergy Reactions Criticality Noted Date Comments Cyclobenzaprine Syncope High 07/20/2023 Erythromycin Other (See comments) Low 12/16/2018 Hearing loss Medications atorvastatin (LIPITOR) 40 mg tablet Take 1 tablet (40 mg total) by mouth daily Active empagliflozin (JARDIANCE) 10 mg tablet 1 tablet (10 mg total) daily Active celecoxib (CeleBREX) 200 mg capsule TAKE 1 CAPSULE (200 MG TOTAL) BY MOUTH 2 (TWO) TIMES A DAY NEEDED FOR PAIN 60 capsule 08/25/2023 Active Active Problems No known active problems Social History Tobacco Use Types Packs/Day Years Used Date Smoking Tobacco: Never Smokeless Tobacco: Never Tobacco Cessation:Counseling Given: No Sex and Gender Information Value Date Recorded Sex Assigned at Not on file Legal Sex Male 6:32 PM SILK WORKER Gender Identity Not on file Sexual Orientation Not on file Last Filed Vital Signs Vital Sign Reading Time Taken Comments Blood Pressure 125/77 07/20/2023 8:13 AM CDT Pulse 66 07/20/2023 8:13 AM CDT Temperature 36.9 C (98.5 F) 03/21/2019 10:11 AM SILK WORKER Respiratory Rate 18 03/21/2019 10:11 AM SILK WORKER Oxygen Saturation 95% 03/21/2019 10:11 AM SILK WORKER Inhaled Oxygen Concentration - - Weight 129.3 kg (285 lb) 07/20/2023 8:13 AM CDT Height 186.7 cm (6' 1.5 ) 07/20/2023 8:13 AM CDT Body Mass Index 37.09 07/20/2023 8:13 AM CDT Plan of Treatment Not on file Insurance [facility] Care Teams Roller Bearing Inspector Relationship Specialty Start Date End Date Kvng Cutler MD PCP - General Emergency Medicine 03/31/19
--- OUTSIDE RECORDS SUMMARY | 2024-06-28 17:23 | XMS_ITS | Clinical Summary ---
Author Organization [facility] [address] Address [address] [place] [id number] Care Team Providers Care Fretted Instrument Maker Hand Name Role Phone Kvng Cutler MD Primary Care Provider [phone] Allergies Active Allergy Reactions Criticality Noted Date [...] on file Legal Sex Male 6:32 PM AMMONIA OPERATOR Gender Identity Not on file Sexual Orientation Not on file Obstetrics History Last Filed Vital Signs Vital Sign Reading Time Taken Comments Blood Pressure 125/77 07/20/2023 8:13 AM CDT Pulse 66 07/20/2023 8:13 AM CDT Temperature 36.9 C (98.5 F) 03/21/2019 10:11 AM AMMONIA OPERATOR Respiratory Rate 18 03/21/2019 10:11 AM AMMONIA OPERATOR Oxygen Saturation 95% 03/21/2019 10:11 AM AMMONIA OPERATOR Inhaled Oxygen Concentration - - Weight 129.3 kg (285 lb) 07/20/2023 8:13 AM CDT Height 186.7 cm (6' 1.5 ) 07/20/2023 8:13 AM CDT Body Mass Index 37.09 07/20/2023 8:13 AM CDT Plan of Treatment Health Maintenance Due Date Last Done Comments Colon Cancer Screening-Colonoscopy 1977 Depression Screening 1977 Hepatitis C Screening 1977 Hepatitis B Screening 08/28/1995 Regular Well Visit/Exam 18-64 08/28/1995 Influenza Vaccine (#1) 2023 DTaP/Tdap/Td Vaccine (3 - Td or Tdap) 08/26/2032 08/26/2022, 08/30/2010 HPV Vaccines Aged Out No longer eligi ble based on patient's age to complete this topic Pneumococcal vaccine <65 Aged Out No longer eligible based on patient's age to complete this topic Insurance [facility] Care Teams Fretted Instrument Maker Hand Relationship Specialty Start Date End Date Kvng Cutler MD PCP - General Emergency Medicine 03/31/19
--- OUTSIDE RECORDS SUMMARY | 2024-06-28 17:24 | XMS_ITS | Encounter Summary ---
Author Organization [facility] Address [address] [facility] [place] [address] Phone Care Team Providers Care Cleaning Laborer Name Role Phone Rhoda Sawant MD Primary Care Provider [phone] Ata Rosas MD Unavailable Getachew Lee APRN, ENROLLMENT SPECIALIST Unavailable [phone] Reason for Visit * Reason Comments Medication Refill Encounter Details Date Type Department Care Team (Late st Contact Info) Description 04/27/2023 Refill [facility] [address] [place] [address] Getachew Lee, MEDICAL SALES ASSOCIATE, ENROLLMENT SPECIALIST [address] [place] [address] Medication Refill Social History Tobacco Use Types [...] encounter Miscellaneous Notes * Telephone Encounter - Analilia Aguilar RN - 04/27/2023 11:58 AM CST Medication failed the protocol, provider to review and approve the medication order if appropriate. Requested Prescriptions Pending Prescriptions Disp Refills Xyosted 75 MG/0.5ML Solution Auto-injector [Pharmacy Med Name: XYOSTED 75MG/0.5ML AUTO INJ 4X0.5ML]2 mL Sig: INJECT 75 MG UNDER THE SKIN EVERY WEEK Not Delegated - Androgens Protocol Failed - 04/27/2023 8:55 AM Failed - This refill cannot be delegated Passed - Visit with relevant provider in past 12 months or upcoming 90 days Recent Visits Date Type Provider Dept 04/21/23 Office Visit Getachew Lee APRN, CNP [facility] [place] 03/31/23 Office Visit Getachew Lee APRN, CNP [facility] [place] 02/25/23 Procedure [facility]23 Office Visit Getachew Lee APRN, CNP [facility] [place] 11/25/22 Office Visit Getachew Lee APRN, CNP [facility] [place] 10/14/22 Office Visit Getachew Lee APRN, LISBETH [facility] [place] Showing recent visits within past 365 days and meeting all other requirements Future Appointments Date Type Provider Dept 05/19/23 Appointment Getachew Lee APRN, CNP [facility] [place] Showing future appointments within next 90 days and meeting all other requirements R RAFTING GUIDE documented in this encounter Plan of Treatment Not on file documented as of this encounter Visit Diagnoses Not on filedocumented in this encounter Care Teams Cleaning Laborer Relationship Specialty Start Date End Date Rhoda Sawant MD [address] [place] [address] PCP - General Family Medicine 12/01/22 Ata Rosas MD [address] [place] [id number] Consulting Physician Urological Surgery 02/25/23 Getachew Lee APRN, ENROLLMENT SPECIALIST [address] [place] [address] Nurse Practitioner Advanced Practice Nurse 10/14/22 documented as of this encounter
--- OUTSIDE RECORDS SUMMARY | 2024-06-28 17:24 | XMS_ITS | Clinical Summary ---
Author Organization [facility] Address [address] [place] [address] Phone Care Team Providers Care Emergency Care Attendant Name Role Phone Rhoda Sawant MD Primary Care Provider [phone] Ata Rosas MD Unavailable Getachew Lee APRN, [employer] Unavailable [phone] Allergies Active Allergy Reactions Criticality Noted Date Comments Erythromycin Other (see Comments) 04/10/2020 Hearing loss Medications atorvastatin (LIPITOR) 10 MG Tablet Take 10 mg by mouth daily. 08/07/19 23 Active azelastine (ASTELIN) 0.1 % Solution 1-2 Sprays by Nasal route. 04/05/19 20 Active ergocalciferol (VITAMIN D) 13436 UNIT Capsule TAKE 1 CAPSULE BY MOUTH EVERY WEEK 08/07/19 23 Active losartan (COZAAR) 25 MG Tablet Take 25 mg by mouth daily. 09/03/19 23 Active metFORMIN (GLUCOPHAGE-XR ) 500 MG TABLET SR 24 HR Take 500 mg by mouth daily. 08/08/19 23 Active montelukast (SINGULAIR) 10 MG Tablet Take 10 mg by mouth. 04/05/19 20 Active triamcinolone (KENALOG) 0.1 % Ointment 10/18/19 23 Active Misc Natural Products (NF Formulas Testosterone) Capsule Take by mouth. Activ e Mounjaro 2.5 MG/0.5ML Solution Pen-injector ADMINISTER 2.5 MG UNDER THE SKIN EVERY WEEK 03/16/20 23 Active Amoxicillin 500 MG Tablet Take 500 mg by mouth 2 times daily. Active Tadalafil 5 MG TabletIndicati ons:Benign prostatic hyperplasia with weak urinary stream Take 1 Tablet by mouth daily. 30 Tablet 5 01/19/20 24 Active Testosterone Enanthate (Xyosted) 100 MG/0.5ML Solution Auto-injectorI ndications:Hyp ogonadism in male INJECT 0.5 ML BY SUBCUTANEOUS ROUTE ONCE A WEEK FOR 28 DAYS. 6 mL 1 05/31/19 25 Active Testosterone Enanthate (Xyosted) 100 MG/0.5ML Solution Auto-injectorI ndications:Hyp ogonadism in male 0.5 mL by Subcutaneous route once a week for 28 days. 2 mL 3 02/01/20 24 025 Discontinued Encounters Date Type Department Care Team Description 05/24/2024 Refill [facility] [address] [place] [address] Getachew Lee, [employer] MECHANIC, [employer] Medication Refill from Last 3 Months Immunizations Immunization Administration Dates Next Due TDAP Vaccine 08/26/2022,08/30/2010 Social History Tobacco Use Types Packs/Day Years Used Date Smoking Tobacco: Former Cigarettes Smokeless Tobacco: Never Tobacco Cessation:Counseling Given: Not Answered Alcohol Use Standard Drinks/Week Comments Not Currently [...] Sign Reading Time Taken Comments Blood Pressure 155/77 01/19/2024 2:23 PM CDT Pulse 80 01/19/2024 2:23 PM CDT Temperature 37.6 C (99.6 F) 01/13/2024 11:21 AM CDT Respiratory Rate 16 01/19/2024 2:23 PM CDT Oxygen Saturation 95% 01/19/2024 2:23 PM CDT Inhaled Oxygen Concentration - - Weight 135.7 kg (299 lb 3.2 oz) 01/19/2024 2:23 PM CDT Height 190.5 cm (6' 3 ) 01/19/2024 2:23 PM CDT Body Mass Index 37.4 01/19/2024 2:23 PM CDT Plan of Treatment Health Maintenance Due Date Last Done Comments Hepatitis C Virus (HCV) Screening 1977 Hepatitis B Immunization (1 of 3 - 19+ 3-dose series) 1996 Colonoscopy 2022 Colorectal Cancer Screening 2022 Influenza Immunization (#1) 2023 SARS-COV-2 Immunization ( - 2023- season) 2023 Td Immunization Every 10 Years (Adults With 1 Tdap) 08/26/2032 08/26/2022, 08/30/2010 Respiratory Syncytial Virus (RSV) Immunization (Adult) (1 - 1-dose 75+ series) 2052 DTaP/Tdap/Td Immunization Discontinued 2022, 08/30/2010 Meningococcal Immunization (ACWY) Aged Out No longer eligible based on patient's age to complete this topic Pneumococcal Immunization Combined Aged Out No longer eligible based on patient's age to complete this topic Rotavirus Immunization Aged Out No lo nger eligible based on patient's age to complete this topic Insurance MEDICAID [place] Care Teams Emergency Care Attendant Relationship Specialty Start Date End Date Rhoda Sawant MD [address] [place] [address] [place] [address] PCP - General Family Medicine 12/01/22 Ata Rosas MD [address] [address] Consulting Physician Urological Surgery 02/25/23 Getachew Lee APRN, [facility] [address] [place] [address] Nurse Practitioner Advanced Practice Nurse 10/14/22
[2024-06-28 17:25] VITALS: BP 161/92; PULSE 82; RESP 16; TEMP 36.3; O2SAT 96
--- NOTE | 2024-06-28 18:27 | ED_ITS ---
HPI - Headache General Chief Complaint: Headache <NAYLA Shin Last Filed: 07/01/24 18:11> Stated Complaint: headache, epistaxis this morning, blurred vision <NAYLA Shin Last Filed: 07/01/24 18:11> Time Seen by Provider: 06/28/24 18:27 <Laina Coleman PA-C - Last Filed: 07/01/24 18:11> Focused HPI: This is a 48 year old male that presents to the ER for headache. Also reports epistaxis. Reports he has had cold symptoms over the last week. Reports congestion, ear pain. Reports blurred vision, nausea with his headache. Denies fevers. GENERAL: Well-appearing, well-nourished, and in no acute distress. HEAD: Normocephalic, atraumatic. CHEST: Clear to auscultation. ?No respiratory distress. HEART: Regular rate and rhythm.? NEURO: ?Alert and oriented x3. Patient screened in triage and initial orders placed.? ?Additional care and disposition to be based upon?diagnostic testing and treatment. <NAYLA Shin Last Filed: 07/01/24 18:11> Focused HPI: This is a 48 year old male that presents to the ER for headache. Also reports epistaxis. Reports he has had cold symptoms over the last week. Reports congestion, ear pain. Reports blurred vision, nausea with his headache. Denies fevers. GENERAL: Well-appearing, well-nourished, and in no acute distress. HEAD: Normocephalic, atraumatic. CHEST: Clear to auscultation. ?No respiratory distress. HEART: Regular rate and rhythm.? NEURO: ?Alert and oriented x3. Patient screened in triage and initial orders placed.? ?Additional care and disposition to be based upon?diagnostic testing and treatment. <NAYLA Johansen Last Filed: 06/29/24 02:46> Source: patient <NAYLA Johansen Last Filed: 06/29/24 02:46> Mode of arrival: ambulatory <NAYLA Johansen Last Filed: 06/29/24 02:46> Limitations: no limitations <Mariajose Jimenez PA-C - Last Filed: 06/29/24 02:46> History of Present Illness HPI Narrative: Agree with above HPI. Is feeling improved by the time of my evaluation after Tylenol. Denies history of migraines. Does report some dizziness, occasional room spinning sensation. <Mariajose Jimenez PA-C - Last Filed: 06/29/24 02:46> Related Data Home Medications: Home Medications ?Medication ?Instructions ?Recorded ?Confirmed ?Last Taken ?Type testosterone enanthate 75 mg/0.5 75 mg subcut DIRECTED 07/14/23 07/14/23 Unknown History mL subcutaneous auto-injector (Xyosted) <Laina Coleman PA-C - Last Filed: 07/01/24 18:11> Allergies/Adverse Reactions: Allergies Allergy/AdvReac Type Severity Reaction Status Date / Time erythromycin base Allergy Other Verified 05/31/23 15:52 <Laina Coleman PA-C - Last Filed: 07/01/24 18:11> Review of Systems 2 Review of Systems: All systems reviewed & are unremarkable except as noted in HPI. <Mariajose Jimenez PA-C - Last Filed: 06/29/24 02:46> All systems reviewed & are unremarkable except as noted in HPI and below < Maraijose Jimenez PA-C - Last Filed: 06/29/24 02:46> [facility] Past Medical History Medical History: Medical History History of diabetes mellitus, type II Pancreatitis Thyroid condition Non-alcoholic fatty liver disease Hypertension <Laina Coleman PA-C - Last Filed: 07/01/24 18:11> Surgical History Surgical History: Surgical History History of esophagogastroduodenoscopy (EGD) H/O colonoscopy <Laina Coleman PA-C - Last Filed: 07/01/24 18:11> Family History Family History: Family History Mother Family history non-contributory <Laina Coleman PA-C - Last Filed: 07/01/24 18:11> Social History Social History: Social History Smoking status: Former smoker Substance use: never Living arrangements: with family Gender identity (if verbalized by the patient): Male Spiritual care concerns: No <Laina Coleman PA-C - Last Filed: 07/01/24 18:11> Exam 2 Narrative: GENERAL: Well appearing, well-nourished, non-toxic, in no acute distress. HEAD: Normocephalic, atraumatic. EYES: PERRL/EOMI, conjunctiva clear ENT: Minimal posterior pharynx erythema, no tonsillar hypertrophy or exudate. No active epistaxis. No septal hematoma. Right TM is clear. Left EAC with some inflammation and erythema. TM is not erythematous or bulging. NECK: No meningeal signs, neck supple, normal ROM RESPIRATORY: Airway patent, respirations nonlabored. Clear to auscultation bilaterally, no rales, rhonchi, wheezing. CARDIOVASCULAR: Regular rate and rhythm without murmurs, rubs, or gallops. ABDOMINAL: Soft, no significant focal tenderness, nondistended. Normoactive BS. MUSCULOSKELETAL: Moves all extremities. No gross deformities. SKIN: Warm, dry, normal color. NEURO: A&O X3. Speech clear. Cranial nerves II-XII grossly intact. Steady gait. No ataxic movements. No focal deficits. PSYCHIATRIC: Appropriate mood and affect. Normal interaction. <Mariajose Jimenez PA-C - Last Filed: 06/29/24 02:46> Course Vital Signs Vital signs: Vital Signs Temperature 97.4 F L 06/28/24 17:25 Pulse Rate 82 06/28/24 17:25 Respiratory Rate 16 06/28/24 17:25 Blood Pressure 161/92 H 06/28/24 17:25 Pulse Oximetry 96 06/28/24 17:25 Temperature 97.4 F L 06/28/24 17:25 Pulse Rate 76 06/28/24 22:57 Respiratory Rate 20 06/28/24 22:57 Blood Pressure 174/99 H 06/28/24 22:57 Pulse Oximetry 95 06/28/24 22:57 <Laina Coleman PA-C - Last Filed: 07/01/24 18:11> Vital Signs Temperature 97.4 F L 06/28/24 17:25 Pulse Rate 82 06/28/24 17:25 Respiratory Rate 16 06/28/24 17:25 Blood Pressure 161/92 H 06/28/24 17:25 Pulse Oximetry 96 06/28/24 17:25 Temperature 97.4 F L 06/28/24 17:25 Pulse Rate 76 06/28/24 22:57 Respiratory Rate 20 06/28/24 22:57 Blood Pressure 174/99 H 06/28/24 22:57 Pulse Oximetry 95 06/28/24 22:57 <Mariajose Jimenez PA-C - Last Filed: 06/29/24 02:46> MDM - Headache MDM Narrative Medical decision making narrative: Patient presented to ED with multiple complaints, headache, diarrhea, congestion, left ear pain, dizziness, epistaxis this morning. Vital signs are stable upon arrival. Patient in no acute distress. He is neurologically intact upon my exam. No focal deficits. Exam was notable for left otitis externa. No septal hematoma on exam. No active epistaxis. Bleeding was able to be controlled at home prior to arrival, likely anterior in origin. CT brain was obtained and without acute findings. Chest x-ray was clear. Viral swabs are negative. Basic laboratory studies are unremarkable. No leukocytosis or anemia. Stable electrolytes. Stable kidney function. EKG was without ischemic changes, showing incomplete right bundle. Troponin undetectable. Discussed lab and imaging findings with patient, likelihood of viral syndrome, sinus pressure/congestion causing migraine. Patient initially had some improvement with Tylenol that was given in triage. I gave him additional migraine cocktail. On re-evaluation he is reporting minimal improvement, but states he just would like to go home at this point. He does not want any further medications or workup. He does feel comfortable going home. is in agreement with plan. I discussed continuing Tylenol, ibuprofen, orsp-itz-oxzeigh cough and cold medicines/decongestants at home for additional sx relief. Will prescribe ear drops for left otitis externa. Will also prescribe Zofran, meclizine for home as needed. Patient is in agreement with this plan. Again wanting to be discharged. Recommended close follow-up with PCP for further evaluation. Discussed strict return precautions. Patient voiced understanding. Discharged in stable condition. Remained neurologically intact at time of D/C. <Mariajose Jimenez PA-C - Last Filed: 06/29/24 02:46> Medical Records Attestation: I reviewed the patient's medical records. <Mariajose Jimenez PA-C - Last Filed: 06/29/24 02:46> Lab Data Attestation: I reviewed the patient's lab results. <Mariajose Jimenez PA-C - Last Filed: 06/29/24 02:46> Result diagrams: 06/28/24 18:55 06/28/24 18:55 <Laina Coleman PA-C - Last Filed: 07/01/24 18:11> Labs: Lab Results 06/28/24 Range/Units 18:55 WBC 7.9 (4.5-10.0) K/mm3 RBC 5.34 (4.6-6.20) M/mm3 Hgb 15.5 (14.0-18.0) g/dL Hct 45.8 (42.0-52.0) % MCV 85.8 (80-100) fl MCH 29.0 (26-34) pg MCHC 33.8 (32-36) g/dl RDW 12.9 (11.5-14.5) % Plt Count 198 (150-375) k/mm3 MPV 9.2 (7.4-10.4) fl Immature Gran % (Auto) 0.3 (0-0.5) % Neut % (Auto) 64.7 (45.5-73.1) % Lymph % (Auto) 23.8 (18.3-44.2) % [place] % (Auto) 9.1 H (2.6-8.5) % Eos % (Auto) 1.6 (0-4.4) % Baso % (Auto) 0.5 (0.2-1.2) % Lymph # (Auto) 1.89 (0.9-3.2) K/mm3 [place] # (Auto) 0.7 H (0.1-0.6) K/mm3 Eos # (Auto) 0.1 (0-0.3) K/mm3 Baso # (Auto) 0.0 (0.0-0.1) K/mm3 Abs Immat Gran (auto) 0.02 (0.00-0.031) K/mm3 Absolute Neuts (auto) 5.1 (1.3-6.7) K/mm3 Absolute Nucleated RBC 0.000 (0.0-0.012) K/mm3 Nucleated RBC % 0.0 (0.0-0.2) % PT 13.7 (11.1-14.7) Seconds INR 1.0 APTT 27.1 (22.3-36.8) Seconds Sodium 137 (137-145) mmol/L Potassium 3.9 (3.4-5.0) mmol/L Chloride 100 (98-107) mmol/L Carbon Dioxide 26 (22-30) mmol/L Anion Gap 11 (4-12) mmol/L BUN 9 (9-20) mg/dL Creatinine 0.88 (0.7-1.3) mg/dL Estim Creat Clear Calc 133 ml/min Estimated GFR > 60 (59 - ) Glucose 97 (65-110) mg/dL Calcium 9.4 (8.4-10.2) mg/dL Magnesium 2.0 (1.6-2.3) mg/dL Total Bilirubin 0.9 (0.2-1.3) mg/dL AST 34 (17-59) U/L ALT 39 (6-50) U/L Alkaline Phosphatase 69 (38-126) U/L Troponin I < 0.012 (0.000-0.034) ng/mL Total Protein 8.0 (6.3-8.2) g/dL Albumin 4.6 (3.5-5.1) g/dL Influenza A (RT-PCR) Negative (Negative) Influenza B (RT-PCR) Negative (Negative) RSV (RT-PCR) Negative (Negative) SARS-CoV-2 RNA (RT-PCR) Negative (Negative) <Laina Coleman PA-C - Last Filed: 07/01/24 18:11> Lab Results 06/28/24 Range/Units 18:55 WBC 7.9 (4.5-10.0) K/mm3 RBC 5.34 (4.6-6.20) M/mm3 Hgb 15.5 (14.0-18.0) g/dL Hct 45.8 (42.0-52.0) % MCV 85.8 (80-100) fl MCH 29.0 (26-34) pg MCHC 33.8 (32-36) g/dl RDW 12.9 (11.5-14.5) % Plt Count 198 (150-375) k/mm3 MPV 9.2 (7.4-10.4) fl Immature Gran % (Auto) 0.3 (0-0.5) % Neut % (Auto) 64.7 (45.5-73.1) % Lymph % (Auto) 23.8 (18.3-44.2) % [place] % (Auto) 9.1 H (2.6-8.5) % Eos % (Auto) 1.6 (0-4.4) % Baso % (Auto) 0.5 (0.2-1.2) % Lymph # (Auto) 1.89 (0.9-3.2) K/mm3 [place] # (Auto) 0.7 H (0.1-0.6) K/mm3 Eos # (Auto) 0.1 (0-0.3) K/mm3 Baso # (Auto) 0.0 (0.0-0.1) K/mm3 Abs Immat Gran (auto) 0.02 (0.00-0.031) K/mm3 Absolute Neuts (auto) 5.1 (1.3-6.7) K/mm3 Absolute Nucleated RBC 0.000 (0.0-0.012) K/mm3 Nucleated RBC % 0.0 (0.0-0.2) % PT 13.7 (11.1-14.7) Seconds INR 1.0 APTT 27.1 (22.3-36.8) Seconds Sodium 137 (137-145) mmol/L Potassium 3.9 (3.4-5.0) mmol/L Chloride 100 (98-107) mmol/L Carbon Dioxide 26 (22-30) mmol/L Anion Gap 11 (4-12) mmol/L BUN 9 (9-20) mg/dL Creatinine 0.88 (0.7-1.3) mg/dL Estim Creat Clear Calc 133 ml/min Estimated GFR > 60 (59 - ) Glucose 97 (65-110) mg/dL Calcium 9.4 (8.4-10.2) mg/dL Magnesium 2.0 (1.6-2.3) mg/dL Total Bilirubin 0.9 (0.2-1.3) mg/dL AST 34 (17-59) U/L ALT 39 (6-50) U/L Alkaline Phosphatase 69 (38-126) U/L Troponin I < 0.012 (0.000-0.034) ng/mL Total Protein 8.0 (6.3-8.2) g/dL Albumin 4.6 (3.5-5.1) g/dL Influenza A (RT-PCR) Negative (Negative) Influenza B (RT-PCR) Negative (Negative) RSV (RT-PCR) Negative (Negative) SARS-CoV-2 RNA (RT-PCR) Negative (Negative) <NAYLA Johansen Last Filed: 06/29/24 02:46> Imaging Data Attestation: I personally reviewed and interpreted this imaging study as follows: < Mariajose Jimenez PA-C - Last Filed: 06/29/24 02:46> Radiologist's impression: ITS Impressions Head CT 06/28/24 18:56 Impression: No acute intracranial hemorrhage or suspicious mass effect. Chest X-Ray 06/28/24 19:11 IMPRESSION: No focal infiltrate or effusion. <NAYLA Johansen Last Filed: 06/29/24 02:46> ECG Data EKG #1: Attestation: I personally reviewed and interpreted this ECG as follows: <NAYLA Johansen Last Filed: 06/29/24 02:46> ECG completion date: 06/28/24 <NAYLA Johansen Last Filed: 06/29/24 02:46> ECG completion time: 23:04 <NAYLA Johansen Last Filed: 06/29/24 02:46> EKG Interpretation: normal rate (77), sinus rhythm, non-specific ST changes and RBBB (incomplete) <Mariajose Jimenez PA-C - Last Filed: 06/29/24 02:46> Critical Care Time Critical Care Time Critical Care Time: No <NAYLA Shin Last Filed: 07/01/24 18:11> Discharge Plan Discharge Clinical Impression: Acute viral syndrome Migraine Qualifiers: Migraine type: unspecified Status migrainosus presence: without status migrainosus Intractability: not intractable Qualified Code(s): G43.909 - Migraine, unspecified, not intractable, without status migrainosus Otitis externa Qualifiers: Otitis externa type: unspecified type Chronicity: acute Laterality: left Q ualified Code(s): H60.502 - Unspecified acute noninfective otitis externa, left ear <NAYLA Shin Last Filed: 07/01/24 18:11> Patient Disposition: Home <NAYLA Shin Last Filed: 07/01/24 18:11> Condition: Stable <NAYLA Shin Last Filed: 07/01/24 18:11> Instructions: Antibiotic Form, Acute Headache (ED), Earache (ED), Viral Syndrome (ED), Dizziness (ED) <Laina Coleman PA-C - Last Filed: 07/01/24 18:11> Additional Instructions: Continue Tylenol and ibuprofen as needed for pain. Utilize Zofran as needed for further nausea. Utilize meclizine as needed for dizziness. Get plenty of rest. Stay well hydrated. Recommend low light/ low stimulus environment, limiting screen time. Utilize ear drops as prescribed. Avoid placing anything into ears. Recommend [id number] cough and cold medicines for symptom relief as needed - Delsym, Mucinex, DayQuil, NyQuil, Sudafed, Robitussin, TheraFlu. Follow-up with your primary care doctor for further evaluation. Return to the ED if you experience worsening or severe pain, severe dizziness, passing out, numbness or weakness or arm or leg, recurrent vision changes, unable to keep down food or drink, chest pain, difficulty breathing, persistent fevers, or any other symptoms of concern. <NAYLA Shin Last Filed: 07/01/24 18:11> Patient Language: French <Laina Coleman PA-C - Last Filed: 07/01/24 18:11> Prescriptions: New meclizine 25 mg tablet 25 mg PO TID PRN (Reason: dizziness) Qty: 15 0RF ondansetron 4 mg tablet,disintegrating 4 mg PO Q8H PRN (Reason: nausea and vomiting) Qty: 15 0RF ciprofloxacin-dexamethasone 0.3-0.1 % drops,suspension 4 drp EACH EAR Q12H 7 Days Qty: 7.5 0RF No Action Xyosted 75 mg/0.5 mL auto-injector 75 mg SUBCUT DIRECTED amoxicillin-pot clavulanate 875-125 mg tablet 1 tablet PO Q12H 10 Days Qty: 20 0RF prednisone 20 mg tablet 40 mg PO DAILY 5 Days Qty: 10 0RF <Laina Coleman PA-C - Last Filed: 07/01/24 18:11> Follow-up/Referrals: Alejandro,Rhoda Christie MD [Primary Care Provider] - <Laina Coleman PA-C - Last Filed: 07/01/24 18:11> Time of Disposition: 00:27 <Laina Coleman PA-C - Last Filed: 07/01/24 18:11> 00:27 <Mariajose Jimenez PA-C - Last Filed: 06/29/24 02:46>
[2024-06-28] MEDS: ACETAMINOPHEN 500 MG TABLET 1000 MG PO (18:53)
[2024-06-28 19:02] LABS: Basophils Percent Auto 0.5 % (0.2-1.2); Eosinophils Absolute Auto 0.1 K/mm3 (0-0.3); Eosinophils Percent Auto 1.6 % (0-4.4); Hematocrit 45.8 % (42.0-52.0); Hemoglobin 15.5 g/dL (14.0-18.0); Immature Granulocyte Absolute 0.02 K/mm3 (0.00-0.031); Immature Granulocyte Percent A 0.3 % (0-0.5); Lymphocytes Absolute Auto 1.89 K/mm3 (0.9-3.2); Lymphocytes Percent Auto 23.8 % (18.3-44.2); Mean Corpuscular HGB Conc 33.8 g/dl (32-36); Mean Corpuscular Volume 85.8 fl (80-100); Mean Platelet Volume 9.2 fl (7.4-10.4); Monocytes Absolute Auto 0.7 K/mm3 (0.1-0.6); Monocytes Percent Auto 9.1 % (2.6-8.5); Neutrophils Absolute Auto 5.1 K/mm3 (1.3-6.7); Neutrophils Percent Auto 64.7 % (45.5-73.1); Platelet Count Result 198 k/mm3 (150-375); Red Blood Count 5.34 M/mm3 (4.6-6.20); Red Cell Distribution Width 12.9 % (11.5-14.5); White Blood Count 7.9 K/mm3 (4.5-10.0)
[2024-06-28 19:11] LABS: Alanine Aminotransferase 39 U/L (6-50); Albumin Level 4.6 g/dL (3.5-5.1); Alkaline Phosphatase 69 U/L (38-126); Anion Gap 11 mmol/L (4-12); Aspartate Amino Transferase 34 U/L (17-59); Bilirubin,Total 0.9 mg/dL (0.2-1.3); Blood Urea Nitrogen 9 mg/dL (9-20); Calcium 9.4 mg/dL (8.4-10.2); Carbon Dioxide 26 mmol/L (22-30); Chloride 100 mmol/L (98-107); Estimated CRCL calculation 133 ml/min; Estimated Glomerular Filt Rate > 60; Glucose 97 mg/dL (65-110); Potassium 3.9 mmol/L (3.4-5.0); Sodium 137 mmol/L (137-145)
[2024-06-28 19:22] LABS: Prothrombin Time 13.7 Seconds (11.1-14.7)
[2024-06-28 19:23] LABS: Partial Thromboplastin Time 27.1 Seconds (22.3-36.8)
[2024-06-28 19:38] LABS: Influenza A QL RT-PCR Negative (Negative); Influenza B QL RT-PCR Negative (Negative); RSV RNA, RT-PCR Negative (Negative); SARS-CoV-2 RNA PCR Negative (Negative)
--- OUTSIDE RECORDS SUMMARY | 2024-06-28 20:19 | XMS_ITS | Referral Summary ---
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 Gender Identity Not on file Sexual Orientation Not on file Last Filed Vital Signs Vital Sign Reading Time Taken Comments Blood Pressure 125/77 07/20/2023 8:13 AM CDT Pulse 66 07/20/2023 8:13 AM CDT Temperature 36.9 C (98.5 F) 03/21/2019 10:11 AM PAYROLL REPRESENTATIVE Respiratory Rate 18 03/21/2019 10:11 AM PAYROLL REPRESENTATIVE Oxygen Saturation 95% 03/21/2019 10:11 AM PAYROLL REPRESENTATIVE Inhaled Oxygen Concentration - - Weight 129.3 kg (285 lb) 07/20/2023 8:13 AM CDT Height 186.7 cm (6' 1.5 ) 07/20/2023 8:13 AM CDT Body Mass Index 37.09 07/20/2023 8:13 AM CDT Plan of Treatment Not on file Insurance [facility] Care Teams Tobacco Primer Machine Operator Relationship Specialty Start Date End Date Kvng Cutler MD PCP - General Emergency Medicine 03/31/19
--- OUTSIDE RECORDS SUMMARY | 2024-06-28 20:19 | XMS_ITS | CONTINUITY OF CARE DOCUMENT ---
Author Name cata ivy Address Unknown Organization [facility] Address [address] [place] [address] [address] [place] [address] Phone [phone] Care Team Providers Care Roll Finisher Name Role Phone Rubén SPICER, Yanique Unavailable ERIBERTO LEMUS MD, ALEK Unavailable [phone] SAUNDRA SPICER, ORTEGA Donovan Unavailable [phone] PROBLEMS Condition Status Date Provider Notes Abnormal EKG completed - Yogi Kyte Hyperlipidemia active Yanique Montana MD HTN essential active Yanique Montana MD Obesity active Yanique Montana MD Shortness of breath active Yanique Young Chest pain - nml stress nuc 03/11 active Yogi Rosen Tobacco use, quit active Yanique Montana MD Joint pain active Yanique Montana MD Diabetes mellitus active Yogi Kyte Snoring - ED? active Yogi Kyte ENCOUNTERS Date Type Provider Location Encounter Diag nosis - In-person encounter Office Visit Yanique Montana MD [facility] - In-person encounter Office Visit Yanique Montana MD [facility] Abnormal EKGChest pain - nml stress nuc noring - ED? - In-person encounter Office Visit Yanique Montana MD [facility] Joint painDiabetes mellitus - In-person encounter Office Visit Yanique Montana MD [facility] - In-person encounter Office Visit Yanique Montana MD [facility] HyperlipidemiaHTN essentialObesityShortness of breathChest pain - nml stress nuc 03/11Tobacco use, quit VITAL SIGNS Date Observation Value Provider Body Mass Index (Ratio) 41.77 kg/m2 Dayton Rosen blood pressure, cuff size regular Paul Lopez pulse rate 82 /min Jelena Lopez oxygen saturation, oximetry 98 % Jelena Jessica blood pressure, diastolic 70 mm[Hg] Paul Lopez blood pressure, systolic 130 mm[Hg] Malka Hennessyby respiratory rate E&M 18 /min Jelenaelva Lopez weight E&M 308 [lb_av] Jelenaelva Lopez height E&M 72 [in_i] Jelena Hennessy Body Mass Index (Ratio) 42.85 kg/m2 Dayton Rosen blood pressure, diastolic 85 mm[Hg] Fe edward blood pressure, systolic 125 mm[Hg] Qiana icia oxygen saturation, oximetry 99 % Vera respiratory rate E&M 18 /min Vera pulse rate 81 /min Vera temperature E&M 97.4 [degF] Vera weight E&M 316 [lb_av] Vera height E&M 72 [in_i] Vera Body Mass Index (Ratio) 42.04 kg/m2 Dayton n Kyte pulse rate 73 /min Celi Block blood pressure, diastolic 70 mm[Hg] Br ittany Block blood pressure, systolic 110 mm[Hg] Sommer ttany Block oxygen saturation, oximetry 97 % Celi Fitzgerald weight E&M 310 [lb_av] Celi Fitzgerald height E&M 72 [in_i] Celi Fitzgerald respiratory rate E&M 16 /min Wilda Fitzgerald Body Mass Index (Ratio) 40.41 kg/m2 Sadia Montana MD blood pressure, cuff size regular Cy christina Jeff blood pressure, diastolic 80 mm[Hg] Cy christina Jeff blood pressure, systolic 132 mm[Hg] Sveta Jeff oxygen saturation, oximetry 95 % Yudith Jeff respiratory rate E&M 16 /min Yudith Jeff pulse rate 96 /min Yudith Sloan l weight E&M 298 [lb_av] Yudith Sloan l height E&M 72 [in_i] Yudith Benitezbel l weight E&M 295 [lb_av] Elizabeth Carter Body Mass Index (Ratio) 40.00 kg/m2 Sadia Montana MD blood pressure, cuff size regular Dayday Garrison RN blood pressure, diastolic 88 mm[Hg] Dayday Garrison RN blood pressure, systolic 150 mm[Hg] Eric Garrison RN respiratory rate E&M 18 /min Eric diallo RN oxygen saturation, oximetry 96 % Eric Garrison RN pulse rate 83 /min Eric Garrison RN weight E&M 295 [lb_av] Eric Garrison RN height E&M 72 [in_i] Eric Garrison RN ALLERGIES Allergy Name Onset Date Reaction Criticality Status ERYTHROMYCIN Low Criticality active RESULTS Date Observation Value Provider Reference Range Interpretation Location antinuclear antibody Negative [facility] Negative hemoglobin A1C, blood, as % of total hemoglobin 6.5 % [facility] 4.8-5.6 High erythrocyte sedimentation rate 12 mm/h [facility] 0-15 rheumatoid factor <10.0 IU/mL [facility] 0.0-13.9 thyroid stimulating hormone, serum 0.990 u[IU]/mL [facility] 0.450-4.500 thyroxine, serum, free 1.27 ng/dL [facility] 0.82-1.77 lipoprotein, beta, serum, point, quantitative, calculated 166 mg/dL [facility] 0-99 High HDL cholesterol, serum 38 mg/dL [facility] >39 Low triglyceride, serum, random 141 mg/dL [facility] 0-149 cholesterol, serum 230 mg/dL [facility] 100-199 High alanine aminotransferase (SGPT), serum 52 1/L [facility] 0-44 High aspartate aminotransferase (SGOT), serum 41 1/L [facility] 0-40 High alkaline phosphatase, serum 74 1/L [facility] 39-117 bilirubin, serum, total 0.6 mg/dL [facility] 0.0-1.2 albumin/globulin ratio, serum 1.8 [facility] 1.2-2.2 globulin, serum 2.4 [facility] 1.5-4.5 albumin, serum 4.2 g/dL [facility] 4.0-5.0 protein, total, serum 6.6 g/dL [facility] 6.0-8.5 calcium, serum 9.3 mg/dL [facility] 8.7-10.2 carbon dioxide, venous blood 21 mmol/L [facility] 20-29 chloride, serum 106 mmol/L [facility] 96-106 potassium, serum 4.2 mmol/L [facility] 3.5-5.2 sodium, serum 140 mmol/L [facility] 912-098 6610/12/ 15 urea nitrogen/creatinine ratio, serum 9 [facility] 9-20 eGFR if 124 mL/min/{1.7 3_m2} [facility] >59 eGFR if not 107 mL/min/{1.7 3_m2} [facility] >59 creatinine, serum 0.85 mg/dL [facility] 0.76-1.27 urea nitrogen, blood 8 mg/dL [facility] 6-24 blood glucose, random 100 mg/dL [facility] 65-99 High HISTORY OF MEDICATION USE Medication Status Instructions Dates Provider Indications Com ments CIPROFLOXACIN HCL 500 MG ORAL TABLET active TAKE 1 TABLET BY MOUTH TWICE DAILY WITH FOOD Yanique Montana MD #20, 10 days supply, Prescribed by RAFITA DOMÍNGUEZ, Filled 06/16/2020 COZAAR 25 MG ORAL TABLET completed po daily - Yanique Montana MD METFORMIN HCL 500 MG ORAL TABLET completed one tab by mouth twice daily - Yanique Montana MD ATORVASTATIN CALCIUM 40 MG ORAL TABLET completed one tab daily at night - Yanique Montana MD elevated cholesterol. CARVEDILOL 6.25 MG ORAL TABLET completed 1 tab 2x daily - Yanique Montana MD PROAIR HFA 108 (90 BASE) MCG/ACT INHALATION AEROSOL SOLUTION completed 2 puffs every 4-6 hours - Yudith Jeff CLARITIN CAPSULE completed as needed -OTC - Yudith Jeff FLONASE ALLERGY RELIEF 50 MCG/ACT NASAL SUSPENSION active as needed Eric Garrison RN FENOFIBRATE 160 MG ORAL TABLET completed ONE TAB. DAILY - Yudith Jeff SOCIAL HISTORY Date Observation Value Provider social history E&M S moking History: Luis Fernando ross is a former smoker. Yanique Montana MD social history reviewed E&M revi ewed - no changes required Yanique Montana MD smoking, year quit 2008 Jelena Bu sby number of years as a smoker 15 a Jelena Jessica smoking history, total pack/day 1.5ppd Jelena Jessica cigarette use yes Jelena Schulter smoking status Former smoker Jelena Schulter social history E&M S moking History: P atient is a former smoker. Yogi Kyte social history reviewed E&M revi ewed - no changes required Yogi Kyte smoking, year quit 2008 Vera F ox number of years as a smoker 15 a Vera Allred smoking history, total pack/day 1.5ppd Vera Allred cigarette use yes Vera Allred smoking status Former smoker Vera Allred social history E&M S moking History: P atient is a former smoker. Yanique Montana MD social history reviewed E&M revi ewed - no changes required Yanique Montana MD smoking, year quit 2008 Celi Block number of years as a smoker 15 a Celi Block smoking history, total pack/day 1.5ppd Celi Block cigarette use yes Celi Block smoking status Former smoker Celi Waller ck social history E&M S moking History: P atient is a former smoker. Yanique Montana MD social history reviewed E&M revi ewed - no changes required Yanique Montana MD smoking, year quit 2008 Yudith vance number of years as a smoker 15 a Yudith Jeff smoking history, total pack/day 1.5ppd Yudith Jeff cigarette use yes Yudith najera smoking status Former smoker Yudith elizondo number of grandchildren Yanique Montana MD number of years as a smoker 15 a Yanique Montana MD smoking history, total pack/day 1.5ppd Yanique Montana MD smoking, year quit 2008 Yanique Montana MD cigarette use yes Yanique Montana MD social history reviewed E&M revi ewed - no changes required Yanique Montana MD social history E&M S moking History: Luis Fernando ross is a former smoker. Yanique Montana MD smoking status Former smoker Yanique cline MD FAMILY HISTORY Family Member Condition First Degree Blood Relative No Known Fam caridad History INSURANCE PROVIDERS Payer name Policy type / Coverage type [place] red democrat [id number] [employer]ICA[employer] Medicaid [id number] ADVANCE DIRECTIVES Name Date DISCUSSED - NO DECISION MADE TREATMENT PLAN Date Name Performer Cardiology:Weight loss advised Rhys Rosen Cardiology:Will arrange home sle ep study. Yogi Rosen Cardiology:Diet cont rolled. Reduced intake of carbohydrates and sugars advised. Will repeat labs at his next appointment. Yogi Rosen Cardiology:Blood pressure contro l is satisfactory. Yogi Rosen Cardiology:Previousl y unable to tolerate Atorvastatin due to headaches. He will likely need something to treat his LDL (goal <70). We will see him in 1 month and repeat labs at this time. WIll wait for him to recover from the UTI. Yogi Rosen Cardiology:No recurr ence. His stress test 02/2020 was normal. The patient has been reassured. Yogi Rosen Cardiology:Feels let hargic on coreg.With HbA1c 6.5will change to losartan 25 mg po daily. Yogi Rosen Cardiology:Sed rate,PERCY and RA u nremarkable. Yanique Montana MD Cardiology:Weight re duction advised. Snoring ++ Likely ED. Arrange home sleep study. Yanique Montana MD Cardiology:Elevated LDL. Start atorvastatin 40 mg po at night. Check fasting lipid panel in 8 weeks. Yanique Montana MD Cardiology:Wants to reduce weight and modify diet.Wants to hold off on metformin for present. Yanique Montana MD Cardiology:Feels let hargic on coreg.With HbA1c 6.5will change to losartan 25 mg po daily. Yanique Montana MD Cardiology:Weight loss advised Rhys negro Silas Cardiology:Has chest pain with abnormal EKG. Will check stress and echo. Yogi Rosen Cardiology:Rheumatoi d Factor and sed rate were normal. PRECY was also negative. Yogi Rosen Cardiology:Previousl y on Fenofibrate. His LDL today was 166. Will start Atorvastatin 40mg daily at night. Reduced intake of fats advised. We will evaluate his liver functions in the next 4-6 weeks and he would also benefit from a liver ultrasound to rule out hepatic steatosis. I will leave the decision of the ultrasound to you. Yanique Montana MD Cardiology:New diagn osis. A1c today 6.5%. Reduced intake of carbohydrates and sugars advised. Will start Metformin 500mg BID as his kidney function is normal so he will benefit from this. Yanique Montana MD Cardiology:Blood pre ssure control is satisfactory. He does complain of tiredness and fatigue on Coreg. Will continue to monitor. If the tiredness and fatigue do not improve, will change the Coreg. TSH and T4 were normal. Yogi Rosen Cardiology:Chest sonja n described as pressure and tightness in a patient with risk factors for CAD, will check echo and stress. Yogi Rosen Cardiology follow up : W as on fenofibrate. Now on diet control. Yanique Montana MD Cardiology follow up : U nclear etiology. Yanique Montana MD Cardiology follow up : B P control satisfactory in the office today w/o medication. He was advised to monitor his pressure. Yanique Montana MD Cardiology follow up : C hest tightness and shortness of breath on exertion in a patient with risk factors for CAD. He had an unremakable stress test on 01/06/19. Pt reassured. Yanique Montana MD Cardiology :Weight loss advised. Yanique Montana MD Cardiology :Abnormal EKG with chest pain and shortness of breath. Will arrange echo and stress test. Yanique Montana MD Cardiology :Unclear etiology. With history of tobacco abuse, will arrange PFTs. Yanique Montana MD Cardiology :Chest ti ghtness and shortness of breath on exertion in a patient with risk factors for CAD, will arrange echo and routine stress. Yanique Montana MD Cardiology :Blood pr essure elevated in the office today. He is not currently taking medications. Advised to monitor his blood pressure daily and bring the numbers to his next visit. Will add medications as necessary. Yanique Montana MD Date Name LIPID PANEL Sleep Study Home Complete Echo Stress Exercise Card iolite PERCY RHEUMATOID FACTOR SED RATE BY MODIFIED WESTERGREN TSH, 3RD GENERATION T-4, FREE LIPID PANEL HEMOGLOBIN A1c COMPREHENSIVE METABO LIC PANEL, W/EGFR DLCO - 33811 FRC - 11250 FVC - 26973 Complete Echo Stress Routine HISTORY OF PROCEDURES Procedure Date Procedure Name Provider Procedure Notes S tatus EKG Yanique Montana MD complet ed EKG Yanique Montana MD complet ed EKG Yanique Montana MD complet ed Stress EKG Yanique Montana MD complet ed FVC / MVV with bronchodilator - 08696 Yanique Montana MD completed FRC - 08755 Yanique Montana MD comple carmen SpO2 w/o 6min walk/titration Yanique Montana MD completed DLCO - 74260 Yanique Montana MD compl eted TALG Yanique Montana MD complet ed
--- OUTSIDE RECORDS SUMMARY | 2024-06-28 20:19 | XMS_ITS | Clinical Summary ---
Author Organization [facility] [address] [place] Address [address] [place] [id number] Care Team Providers Care Secondary Spanish Teacher Name Role Phone Kvng Cutler MD Primary Care Provider [phone] Allergies Active Allergy Reactions Criticality Noted Date [...] on file Legal Sex Male 6:32 PM OUTDOOR ADVERTISING LEASING AGENT Gender Identity Not on file Sexual Orientation Not on file Obstetrics History Last Filed Vital Signs Vital Sign Reading Time Taken Comments Blood Pressure 125/77 07/20/2023 8:13 AM CDT Pulse 66 07/20/2023 8:13 AM CDT Temperature 36.9 C (98.5 F) 03/21/2019 10:11 AM OUTDOOR ADVERTISING LEASING AGENT Respiratory Rate 18 03/21/2019 10:11 AM OUTDOOR ADVERTISING LEASING AGENT Oxygen Saturation 95% 03/21/2019 10:11 AM OUTDOOR ADVERTISING LEASING AGENT Inhaled Oxygen Concentration - - Weight 129.3 [...] patient's age to complete this topic Insurance [facility] Care Teams Secondary Spanish Teacher Relationship Specialty Start Date End Date Kvng Cutler MD PCP - General Emergency Medicine 03/31/19
--- OUTSIDE RECORDS SUMMARY | 2024-06-28 20:19 | XMS_ITS | Encounter Summary ---
Author Organization [facility] Address [address] [place] [address] Phone Care Team Providers Care Route Relief Driver Name Role Phone Rhoda Sawant MD Primary Care Provider [phone] Ata Rosas MD Unavailable Getachew Lee APRN, CNP Unavailable [phone] Reason for Visit * Reason Comments Medication Refill Encounter Details Date Type Department Care Team (Late st Contact Info) Description 09/07/2023 Refill [facility] [address] [place] [address] Ata Rosas MD [address] [address] Medication Refill Social History Tobacco [...] * Telephone Encounter - Getachew Lee APRN, SYSTEMS DESIGN ENGINEER - 09/08/2023 11:58 AM CDT Needs T [...] 08/18/23 Office Visit Getachew Lee APRN, CNP [facility] [place] 05/19/23 Office Visit Getachew Lee APRN, CNP [facility] [place] 04/21/23 Office Visit Getachew Lee APRN, LISBETH [facility] [place] 03/31/23 Office Visit Getachew Lee APRN, CNP [facility] [place] 02/25/23 Procedure Visit Ata Rosas MD [facility] [place] 01/13/23 Office Visit Getachew Lee APRN, CNP [facility] [place] 11/25/22 Office Visit Getachew Lee APRN, CNP [facility] [place] 10/14/22 Office Visit Getachew Lee APRN, LISBETH [facility] [place] Showing recent visits within past 365 days and meeting all other requirements Future Appointments No visits were found meeting these conditions. Showing future appointments within next 90 days and meeting all other requirements documented in this encounter Plan of Treatment Not on file documented as of this encounter Visit Diagnoses Diagnosis Hypogonadism in male documented in this encounter Care Teams Route Relief Driver Relationship Specialty Start Date End Date Rhoda Sawant MD [address] [facility] [address] [place] [address] PCP - General Family Medicine 12/01/22 Ata Rosas MD [address] [facility] [address] [place] [address] Consulting Physician Urological Surgery 02/25/23 Getachew Lee, PATTERN MARKING SUPERVISOR, SYSTEMS DESIGN ENGINEER [address] [place] [address] Nurse Practitioner Advanced Practice Nurse 10/14/22 documented as of this encounter
--- OUTSIDE RECORDS SUMMARY | 2024-06-28 20:19 | XMS_ITS | Encounter Summary ---
Author Organization [facility] Address [address] [facility] [place] [address] Phone Care Team Providers Care Deputy Manager Name Role Phone Rhoda Sawant MD Primary Care Provider [phone] Ata Rosas MD Unavailable Getachew Lee APRN, MASON FOREMAN/SUPERINTENDANT Unavailable [phone] Reason for Visit * Reason Comments Medication Refill Encounter Details Date Type Department Care Team (Late st Contact Info) Description 04/27/2023 Refill [facility] [address] [place] [address] Getachew Lee, CARGO SERVICE SUPERVISOR, MASON FOREMAN/SUPERINTENDANT [address] [place] [address] Medication Refill Social History Tobacco Use Types [...] 04/21/23 Office Visit Getachew Lee APRN, CNP [facility] [place] 03/31/23 Office Visit Getachew Lee APRN, CNP [facility] [place] 02/25/23 Procedure Visit Ata Rosas [facility]23 Office Visit Getache[facility] Lee APRN, CNP [facility] [place] 11/25/22 Office Visit Getachew Lee APRN, CNP [facility] [place] 10/14/22 Office Visit Getachew Lee APRN, LISBETH [facility] [place] Showing recent visits within past 365 days and meeting all other requirements Future Appointments Date Type Provider Dept 05/19/23 Appointment Getachew Lee APRN, CNP [facility] [place] Showing future appointments within next 90 days and meeting all other requirements NG SERVICES MANAGER documented in this encounter Plan of Treatment Not on file documented as of this encounter Visit Diagnoses Not on filedocumented in this encounter Care Teams Deputy Manager Relationship Specialty Start Date End Date Rhoda Sawant MD [address] [place] [address] PCP - General Family Medicine 12/01/22 Ata Rosas MD [address] [address] [place] [id number] Consulting Physician Urological Surgery 02/25/23 Getachew Lee APRN, MASON FOREMAN/SUPERINTENDANT [address] [place] [address] Nurse Practitioner Advanced Practice Nurse 10/14/22 documented as of this encounter
--- OUTSIDE RECORDS SUMMARY | 2024-06-28 20:19 | XMS_ITS | Clinical Summary ---
Author Organization [facility] [employer] Address [address] [place] [address] Care Team Providers Care Chief Digital Officer Name Role Phone Kvng Cutler MD Primary Care Provider [phone] Source Comments [facility],non-owned Affiliates and Associated Physician Practices is amultiple site organization consisting of ambulatory clinics and hospital sitesin [place], [place], [place] and [place]. This disclosure is being madepursuant to the Care Everywhere program and may not contain all information available regarding this patient. Last updated 17.[facility] [employer] Allergies Active Allergy Reactions Criticality Noted Date Comments Erythromycin Other 04/10/2020 Hearing loss Ibuprofen Urticaria 08/30/2010 Medications * Be aware that medications may not be up to date on this document. Alwaysverify current medications with the patient. Medication Sig Dispensed Refills Start Date End Date Status fluticasone propionate (Flonase) 50 MCG/ACT nasal spray [place] 2 (two) sprays into each nostril once daily 48 g 4 12/24/2021 Active azelastine (Astelin) 0.1 % nasal spray [place] 1 (one) spray to 2 (two) sprays [...] 04/10/2020 Assessment & Plan (04/10/2020 11:42 AM VACUUM TANK TENDER): Flexible laryngoscopy deferred due to recent positive [...] 04/10/2020 Assessment & Plan (04/10/2020 11:45 AM VACUUM TANK TENDER): Patient has a history of allergic rhinitis [...] 04/10/2020 Assessment & Plan (04/10/2020 11:47 AM VACUUM TANK TENDER): Patient with recurrent sinus infections requiring medical [...] 04/10/2020 Assessment & Plan (04/10/2020 11:48 AM VACUUM TANK TENDER): Patient with bilateral tinnitus - he does [...] age to complete this topic Care Teams Chief Digital Officer Relationship Specialty Start Date End Date Kvng Cutler MD [address] [place] [id number] PCP - General Family Medicine 04/10/20
--- OUTSIDE RECORDS SUMMARY | 2024-06-28 20:19 | XMS_ITS | Clinical Summary ---
Author Organization [facility] Address [address] [place] [address] Phone Care Team Providers Care Depot Agent Name Role Phone Rhoda Sawant MD Primary Care Provider [phone] Ata Rosas MD Unavailable Getachew Lee APRN, BALL WORKER Unavailable [phone] Allergies Active Allergy Reactions Criticality Noted Date Comments Erythromycin Other (see Comments) 04/10/2020 Hearing loss Medications atorvastatin (LIPITOR) 10 MG Tablet Take 10 mg by mouth daily. 08/07/19 23 Active azelastine (ASTELIN) 0.1 % Solution 1-2 Sprays by Nasal route. 04/05/19 20 Active ergocalciferol (VITAMIN D) 89622 UNIT Capsule TAKE 1 CAPSULE BY MOUTH [...] Type Department Care Team Description 05/24/2024 Refill [facility] [address] [place] [address] Getachew Lee, COMMERCIAL DECORATOR, BALL WORKER Medication Refill from Last 3 Months Immunizations [...] this topic Insurance MEDICAID [place] Care Teams Depot Agent Relationship Specialty Start Date End Date Rhoda Sawant MD [address] [place] [address] PCP - General Family Medicine 12/01/22 Ata Rosas MD [address] [address] Consulting Physician Urological Surgery 02/25/23 Getachew Lee APRN, LISBETH [address] [place] [address] Nurse Practitioner Advanced Practice Nurse 10/14/22
--- NOTE | 2024-06-28 21:21 | ECG_ITS ---
Test Date: 2024-06-28 23:04:49 Measurements Intervals Umbarger Rate: 77 P: 31 NM: 187 QRS: 14 QRSD: 116 T: 29 QT: 406 QTc: 460 Interpretive Statements SINUS RHYTHM INCOMPLETE RIGHT BUNDLE BRANCH BLOCK CONSIDER INFERIOR INFARCT, AGE INDETERMINATE BASELINE ARTIFACT- I, II, AVR, AVL, AVF, V1 ABNORMAL ECG No previous ECG available for comparison Electronically Signed On 06-29-2024 06:18:08 CDT by Felipe Hines D.O.
[2024-06-28 21:52] LABS: Troponin I < 0.012 ng/mL (0.000-0.034)
[2024-06-28] MEDS: SODIUM CHLORIDE 0.9% IV 1,000 ML 999 ML IV CONT (22:43)
[2024-06-28] MEDS: METOCLOPRAMIDE HCL INJ 10 MG/2 ML VIAL IV PUSH (22:44)
[2024-06-28] MEDS: diphenhydrAMINE HCl INJ 50 MG/ML VIAL 25 MG IV PUSH (22:44)
[2024-06-28] MEDS: dexAMETHasone SOD PHOS INJ 10 MG/ML 1 ML VIAL IV PUSH (22:44)
[2024-06-28] MEDS: KETOROLAC 30 MG/ML VIAL (*BKC) IV PUSH (22:44)
[2024-06-28] MEDS: MECLIZINE HCL 25 MG TABLET PO (22:45)
[2024-06-28 22:57] VITALS: BP 174/99; PULSE 76; RESP 20; O2SAT 95
== END 2024-06-29 00:41 | disposition home or self-care (01) ==
PROVIDERS: Physician Assistant; Emergency Provider Physician Assistant; PCP Family Medicine
DX: G43.909 Migraine, unspecified, not intractable, without status migrainosus (principal); H60.502 Unspecified acute noninfective otitis externa, left ear; B34.9 Viral infection, unspecified; Z20.822 Contact with and (suspected) exposure to COVID-19; E11.9 Type 2 diabetes mellitus without complications; I10 Essential (primary) hypertension; R94.31 Abnormal electrocardiogram [ECG] [EKG]
CPT/HCPCS: 36415; 70450; 71046; 80053; 83735; 84484; 85025; 85610; 85730; 87637; 93005; 96361; 96374; 96375; 99284; A9270; J1100; J1200; J1885; J2765; J7030

== ENCOUNTER 2024-12-26 11:27 | Emergency (ER) | payer OTHER, SELFPAY ==
--- NOTE | ~2024-12-26 | XR_ITS ---
XR lumbar spine 2-3V Indication: fall injury, low back pain Comparison: None Findings: Grade 1 anterolisthesis of L5 on S1 with bilateral spondylolytic defects. There is grade 1 retrolisthesis of L2 on L3. No acute fracture is identified Moderate loss of disc at L5-S1. Soft tissues unremarkable Impression: No acute abnormality. Reviewed, dictated and finalized at location P. Impression: No acute abnormality.
--- NOTE | ~2024-12-26 | CT_ITS ---
EXAMINATION: CT lumbar spine wo con DATE: 12/26/2024 16:34 CDT INDICATION: Lumbosacral trauma TECHNIQUE: Computed tomography (CT) of the lumbar spine was performed without intravenous contrast. The dose-length product was 1294.74 mGy-cm. COMPARISON: None FINDINGS: Grade 1 anterolisthesis of L5 on S1 due to bilateral pars defects at the L5 level. Moderate joint space narrowing at the L5-S1 level. No compression fracture in the lumbar spine. Evaluation of the spinal canal contents and bilateral neuroforamen is limited due to CT technique. At the L4-5 level, there is a small broad-based disc bulge with degenerative change in the facet joints causing moderate narrowing of the spinal canal. Mild narrowing of the bilateral neural foramen. At the L5-S1 level, small broad-based disc bulge. Severe narrowing of the bilateral neural foramen and bilateral lateral recesses. Moderate to severe narrowing of the spinal canal. IMPRESSION: 1. Grade 1 anterolisthesis of L5 on S1 due to bilateral pars defects at the L5 level. 2. No compression fracture in the lumbar spine. 3. Discogenic and degenerative change in the lumbar spine most prominent at the L4-L5 and L5-S1 levels as detailed above. If symptoms persist or worsen, consider an MRI for further assessment. Reviewed, dictated and finalized at location Q.
[2024-12-26 11:29] VITALS: BP 130/79; PULSE 91; RESP 16; TEMP 36.6; O2SAT 97
--- OUTSIDE RECORDS SUMMARY | 2024-12-26 13:02 | XMS_ITS | Clinical Summary ---
Author Organization [facility] [email or web address] Address [address] [place] [address] Care Team Providers Care Salesperson Flowers Name Role Phone Rhoda Sawant MD Primary Care Provider [phone] Source Comments [facility],non-owned Affiliates and Associated Physician Practices is amultiple site organization consisting of ambulatory clinics and hospital sitesin [place], [place], [place] and [place]. This disclosure is being madepursuant to the Care Everywhere program and may not contain all information available regarding this patient. Last updated 17.[facility] [email or web address] Allergies Active Allergy Reactions Criticality Noted Date Comments Erythromycin Other 04/10/2020 Hearing loss Ibuprofen Urticaria 08/30/2010 Medications * Be aware that medications may not be up to date on this document. Alwaysverify current medications with the patient. fluticasone propionate (Flonase) 50 MCG/ACT nasal spray [place] 2 (two) sprays into each nostril once daily 48 g 4 12/25/19 22 Active azelastine (Astelin) 0.1 % nasal spray [place] 1 (one) spray to 2 (two) sprays into each nostril 2 times daily Aim tip of spray bottle towards the SAME EYE as the nostril you are spraying in (e.g. when spraying into the left nostril, aim it towards the left eye) 30 mL 3 12/25/19 22 Active tadalafil (Cialis) 5 MG tablet Take 1 (one) tablet by mouth once daily Active atorvastatin (Lipitor) 40 MG tablet Take 1 (one) tablet by mouth once daily Active Tirzepatide (MOUNJARO SC) Inject 2.5 mg subcutaneously every 7 days (once a week) 03/16/20 23 Active clobetasol (Temovate) 0.05 % ointmentIndicat ions:Rash and other nonspecific skin eruption Apply to rash on hands twice daily. 30 days supply. 60 g 2 07/29/19 25 Active Active Problems Problem Noted Date Diagnosed Date Laryngopharyngeal reflux (LPR) 04/10/2020 Assessment & Plan (04/10/2020 11:42 AM LUMBER MARKER): Flexible laryngoscopy deferred due to recent positive [...] 04/10/2020 Assessment & Plan (04/10/2020 11:45 AM LUMBER MARKER): Patient has a history of allergic rhinitis [...] 04/10/2020 Assessment & Plan (04/10/2020 11:47 AM LUMBER MARKER): Patient with recurrent sinus infections requiring medical [...] 04/10/2020 Assessment & Plan (04/10/2020 11:48 AM LUMBER MARKER): Patient with bilateral tinnitus - he does have frequent exposure to loud noise in his profession. He has never had an audiologic testing. Recommend patient have a complete audiogram for further evaluation when he returns in 6 weeks. Immunizations Immunization Administration Dates Next Due TDAP (7yrs+) 08/30/2010 [...] at Not on file Legal Sex Male 11:52 AM LUMBER MARKER Gender Identity Not on file Sexual Orientation [...] 1:25 PM CDT Height 188 cm (6' 2) 12/24/2021 1:25 PM CDT Body Mass Index [...] FLEX SIG - COLON CA SCREENING 1977 HIV SCREENING 1992 HEPATITIS C SCREENING 08/23/1995 HEPATITIS B VACCINE (1 of 3 - 19+ 3-dose series) 1996 DTAP/TDAP/TD VACCINES (2 - T d or Tdap) 08/30/2020 08/30/2010 DEPRESSION SCREENING 03/23/2024 COVID-19 VACCINE (1 - 2023-2 5 season) 2024 INFLUENZA VACCINE (#1) 2024 ZOSTER VACCINE (1 of 2) 08/28/2027 [...] patient's age to complete this topic Insurance [facility] [place] [address] [place] [address] [facility] Care Teams Salesperson Flowers Relationship Specialty Start Date End Date Rhoda Sawant MD [address] [place] [address] PCP - General Family Medicine 07/22/24
--- OUTSIDE RECORDS SUMMARY | 2024-12-26 13:02 | XMS_ITS | Clinical Summary ---
Author Organization [facility] Address [address] [place] [address] Phone Care Team Providers Care Regional Liaison Name Role Phone Ata Rosas MD Unavailable Getachew Lee APRN, ANIMAL HOSPITAL OFFICE SUPERVISOR Unavailable [phone] Azul Brandon TRACTOR TRAILER MOVING VAN DRIVER, ANIMAL HOSPITAL OFFICE SUPERVISOR Primary Care Pr ovider Allergies Active Allergy Reactions Criticality Noted Date Comments Erythromycin Other (see Comments) 04/10/2020 Hearing loss Medications atorvastatin (LIPITOR) 10 MG Tablet Take 10 mg by mouth daily. 08/07/19 23 Active azelastine (ASTELIN) 0.1 % Solution 1-2 Sprays by Nasal route. 04/05/19 20 Active ergocalciferol (VITAMIN D) 81015 UNIT Capsule TAKE 1 CAPSULE BY MOUTH EVERY WEEK 08/07/19 23 Active losartan (COZAAR) 25 MG Tablet Take 25 mg by mouth daily. 09/03/19 23 Active metFORMIN (GLUCOPHAGE-XR) 500 MG TABLET SR 24 HR Take 500 mg by mouth daily. 08/08/19 23 Active montelukast (SINGULAIR) 10 MG Tablet Take 10 mg by mouth. 04/05/19 20 Active triamcinolone (KENALOG) 0.1 % Ointment 10/18/19 23 Active Misc Natural Products (NF Formulas Testosterone) Capsule Take by mouth. Active Mounjaro 2.5 MG/0.5ML Solution Pen-injector 03/16/20 23 Active tadalafil (CIALIS) 5 MG TabletIndicatio ns:Benign prostatic hyperplasia with weak urinary stream TAKE 1 TABLET BY MOUTH EVERY DAY 30 Tablet 5 11/30/19 25 Active Testosterone Enanthate (Xyosted) 100 MG/0.5ML Solution Auto-injectorIn dications:Hypog onadism in male INJECT THE CONTENTS OF 1 SYRINGE UNDER THE SKIN ONCE WEEKLY 2 mL 3 12/13/19 25 Active Tadalafil 5 MG TabletIndicatio ns:Benign prostatic hyperplasia with weak urinary stream Take 1 Tablet by mouth daily. 30 Tablet 5 01/19/20 24 025 Discontinued Testosterone Enanthate (Xyosted) 100 MG/0.5ML Solution Auto-injectorIn dications:Hypog onadism in male INJECT THE CONTENTS OF 1 SYRINGE UNDER THE SKIN ONCE WEEKLY 2 mL 3 08/23/19 25 025 Discontinued Encounters Date Type Department Care Team Description 12/12/2024 Refill [facility] [address] [place] [address] Getachew Lee APRN, CNP Medication Refill 11/28/2024 Refill [facility] [address] [place] [address] Getachew Lee APRN, CNP Medication Refill from Last 3 Months Immunizations [...] Sign Reading Time Taken Comments Blood Pressure 143/89 08/23/2024 2:27 PM CDT Pulse 91 08/23/2024 2:27 PM CDT Temperature 37.6 C (99.6 F) 01/13/2024 11:21 AM CDT Respiratory Rate 18 08/23/2024 2:27 PM CDT Oxygen Saturation 94% 08/23/2024 2:27 PM CDT Inhaled Oxygen Concentration - - Weight 137.4 kg (303 lb) 08/23/2024 2:27 PM CDT Height 190.5 cm (6' 3) 08/23/2024 2:27 PM CDT Body Mass Index 37.87 08/23/2024 2:27 PM CDT Plan of Treatment Upcoming Encounters Date Type Department Care Team (Late st Contact Info) Description 03/07/2025 9:00 AM CURING ROOM SUPERVISOR Office Visit [facility] - [facility] [address] [place] [address] Sean Skinner MD [address] [place] [address] Health Maintenance Due Date Last Done Comments Hepatitis C Virus (HCV) Screening 1977 Hepatitis B Immunization (1 of 3 - 19+ 3-dose series) 1996 Cologuard 2022 Colonoscopy 2022 Colorectal Cancer Screening 2022 Immunochemical Fecal Occult Blood 2022 Influenza Immunization (#1) 2024 SARS-COV-2 Immunization ( season) 2024 Td Immunization Every 10 Yea rs (Adults With 1 Tdap) 08/26/2032 08/26/2022, 08/30/2010 Respiratory Syncytial Virus (RSV) Immunization (Adult) (1 - 1-dose 75+ series) 2052 DTaP/Tdap/Td Immunization Discontinued 2022, 08/30/2010 Human Papillomavirus (HPV) Immunization Aged Out No longer eligible based on patient's age to complete this topic Meningococcal Immunization (ACWY) Aged Out No longer eligible based on patient's age to complete this topic Pneumococcal Immunization Combined Aged Out No longer eligible based on patient's age to complete this topic Rotavirus Immunization Aged Out No lo nger eligible based on patient's age to complete this topic Insurance [place]ICAID [place] Care Teams Regional Liaison Relationship Specialty Start Date End Date Azul Brandon APRN, ANIMAL HOSPITAL OFFICE SUPERVISOR [address] [place], [place] [id number] PCP - General Advanced Practice Nurse 08/03/24 Ata Rosas MD [address] [phone] Consulting Physician Urological Surgery 02/25/23 Getachew Lee APRN, ANIMAL HOSPITAL OFFICE SUPERVISOR [address] [place] [address] Nurse Practitioner Advanced Practice Nurse 10/14/22
--- OUTSIDE RECORDS SUMMARY | 2024-12-26 13:02 | XMS_ITS | Encounter Summary ---
Author Organization [facility] Address [address] [place] [address] Phone Care Team Providers Care Production Machine Computer Operator Name Role Phone Rhoda Sawant MD Primary Care Provider Ata Zavaleta MD Unavailable Getachew Lee APRN, ORAL AND MAXILLOFACIAL SURGEON Unavailable [phone] Azul Brandon APRN, ORAL AND MAXILLOFACIAL SURGEON Primary Care Pr ovider Reason for Visit * Reason Comments Medication Refill Encounter Details Date Type Department Care Team (Late st Contact Info) Description 09/07/2023 Refill [facility] [address] [place] [address] Ata Rosas MD [address] [address] Medication Refill Social History Tobacco [...] * Telephone Encounter - Getachew Lee APRN, CNP - 09/08/2023 11:58 AM CDT Needs T [...] 08/18/23 Office Visit Getachew Lee APRN, CNP [facility] [place] 05/19/23 Office Visit Getachew Lee APRN, CNP [facility] [place] 04/21/23 Office Visit Getachew Lee APRN, CNP [facility] [place] 03/31/23 Office Visit Getachew Lee APRN, CNP [facility] [place] 02/25/23 Procedure Visit Ata Rosas MD [facility] [place] 01/13/23 Office Visit Getachew Lee APRN, CNP [facility] [place] 11/25/22 Office Visit Getachew Lee APRN, LISBETH [facility] [place] 10/14/22 Office Visit Getachew Lee APRN, LISBETH [facility] [place] Showing recent visits within past 365 days and meeting all other requirements Future Appointments No visits were found meeting these conditions. Showing future appointments within next 90 days and meeting all other requirements documented in this encounter Plan of Treatment Upcoming Encounters Date Type Department Care Team (Late st Contact Info) Description 03/07/2025 9:00 AM IT PROGRAMMER ANALYST Office Visit [facility] - Neurology [facility] [address] [place] [address] Sean Skinner MD [address] [place] [address] documented as of this encounter Visit Diagnoses Diagnosis Hypogonadism in male documented in this encounter Care Teams Production Machine Computer Operator Relationship Specialty Start Date End Date Rhoda Sawant MD PCP - General Family Medicine 12/01/22 08/02/24 Azul Brandon APRN, ORAL AND MAXILLOFACIAL SURGEON [address] [place] [address] PCP - General Advanced Practice Nurse 08/03/24 Ata Rosas MD [address] [address] Consulting Physician Urological Surgery 02/25/23 Getachew Lee APRN, ORAL AND MAXILLOFACIAL SURGEON [address] [place] [address] Nurse Practitioner Advanced Practice Nurse 10/14/22 documented as of this encounter
--- OUTSIDE RECORDS SUMMARY | 2024-12-26 13:02 | XMS_ITS | Clinical Summary ---
Author Organization [facility] [address] Address [address] [place] [address] Care Team Providers Care Chief Engineer Research Name Role Phone Kvng Cutler MD Primary Care Provider [phone] Allergies Active Allergy Reactions Criticality Noted Date [...] on file Legal Sex Male 6:32 PM RICE FIELD WORKER Gender Identity Not on file Sexual Orientation Not on file Obstetrics History Last Filed Vital Signs Vital Sign Reading Time Taken Comments Blood Pressure 125/77 07/20/2023 8:13 AM CDT Pulse 66 07/20/2023 8:13 AM CDT Temperature 36.9 C (98.5 F) 03/21/2019 10:11 AM RICE FIELD WORKER Respiratory Rate 18 03/21/2019 10:11 AM RICE FIELD WORKER Oxygen Saturation 95% 03/21/2019 10:11 AM RICE FIELD WORKER Inhaled Oxygen Concentration - - Weight 129.3 kg (285 lb) 07/20/2023 8:13 AM CDT Height 186.7 cm (6' 1.5) 07/20/2023 8:13 AM CDT Body Mass Index 37.09 07/20/2023 8:13 AM CDT Plan of Treatment Health Maintenance Due Date Last Done Comments Colon Cancer Screening-Colonoscopy 1977 Depression Screening 1977 Hepatitis C Screening 1977 Hepatitis B Screening 08/28/1995 Regular Well Visit/Exam 18-64 08/28/1995 Influenza Vaccine (#1) 2024 DTaP/Tdap/Td Vaccine (3 - Td or Tdap) 08/26/2032 08/26/2022, 08/30/2010 Pneumococcal vaccine <65 Aged Out No longer eligible based on patient's age to complete this topic Insurance [facility] Care Teams Chief Engineer Research Relationship Specialty Start Date End Date Kvng Cutler MD PCP - General Emergency Medicine 03/31/19
--- OUTSIDE RECORDS SUMMARY | 2024-12-26 13:02 | XMS_ITS | Encounter Summary ---
Author Organization [facility] Address [address] [place] [address] Phone Care Team Providers Care Broach Setter Name Role Phone Rhoda Sawant MD Primary Care Provider Ata Zavaleta MD Unavailable Getachew Lee APRN, CLOTHES WRINGER Unavailable [phone] Azul Brandon APRN, CLOTHES WRINGER Primary Care Pr ovider Reason for Visit * Reason Comments Medication Refill Encounter Details Date Type Department Care Team (Late st Contact Info) Description 04/27/2023 Refill [facility] [address] [place] [address] Getachew Lee, ANKIT, CLOTHES WRINGER [address] [place] [address] Medication Refill Social History Tobacco Use Types [...] encounter Miscellaneous Notes * Telephone Encounter - Aguilar, Analilia A, RN - 04/27/2023 11:58 AM CST Medication [...] 04/21/23 Office Visit Getachew Lee APRN, CNP [facility] [place] 03/31/23 Office Visit Getachew Lee APRN, CNP [facility] [place] 02/25/23 Procedure Visit Ata Rosas MD [facility] [place] 01/13/23 Office Visit Getachew Lee APRN, CNP [facility] [place] 11/25/22 Office Visit Getachew Lee APRN, CNP [facility] [place] 10/14/22 Office Visit Getachew Lee APRN, CNP [facility] [place] Showing recent visits within past 365 days and meeting all other requirements Future Appointments Date Type Provider Dept 05/19/23 Appointment Getachew Lee APRN, CNP [facility] [place] Showing future appointments within next 90 days and meeting all other requirements HEAD documented in this encounter Plan of Treatment Upcoming Encounters Date Type Department Care Team (Late st Contact Info) Description 03/07/2025 9:00 AM CHEF HEAD Office Visit [facility] - [facility]rology - [place] [address] [place] [address] Sean Skinner MD [address] [place] [address] documented as of this encounter Visit Diagnoses Not on filedocumented in this encounter Care Teams Broach Setter Relationship Specialty Start Date End Date Rhoda Sawant MD PCP - General Family Medicine 12/01/22 08/02/24 Azul Brandon APRN, CLOTHES WRINGER [address] [place], [place] [id number] PCP - General Advanced Practice Nurse 08/03/24 Ata Rosas MD [address] [phone] Consulting Physician Urological Surgery 02/25/23 Getachew Lee APRN, CLOTHES WRINGER [address] [place] [address] Nurse Practitioner Advanced Practice Nurse 10/14/22 documented as of this encounter
[2024-12-26 15:30] VITALS: BP 131/79; PULSE 82; RESP 12; TEMP 36.6; O2SAT 100
[2024-12-26 15:33] VITALS: BP 131/79; PULSE 82; RESP 12; TEMP 36.6; O2SAT 100
--- OUTSIDE RECORDS SUMMARY | 2024-12-26 16:17 | XMS_ITS | Clinical Summary ---
Author Organization [facility] Address [address] [place] [address] Phone Care Team Providers Care Outside Plant Supervisor Name Role Phone Ata Rosas MD Unavailable Getachew Lee APRN, BOARD CERTIFIED ORTHODONTIST Unavailable [phone] Azul Brandon SURGICAL SERVICES MANAGER, BOARD CERTIFIED ORTHODONTIST Primary Care Pr ovider Allergies Active Allergy Reactions Criticality Noted Date Comments Erythromycin Other (see Comments) 04/10/2020 Hearing loss Medications atorvastatin (LIPITOR) 10 MG Tablet Take 10 mg by mouth daily. 08/07/19 23 Active azelastine (ASTELIN) 0.1 % Solution 1-2 Sprays by Nasal route. 04/05/19 20 Active ergocalciferol (VITAMIN D) 28522 UNIT Capsule TAKE 1 CAPSULE BY MOUTH [...] Type Department Care Team Description 12/12/2024 Refill [facility] [address] [place] [address] Getachew Lee APRN, CNP Medication Refill 11/28/2024 Refill [facility] [address] [place] [address] Getachew Lee APRN, CNP Medication Refill from [...] st Contact Info) Description 03/07/2025 9:00 AM INDUSTRIAL MACHINERY MECHANIC Office Visit [facility] - Neu[facility] [address] [place] [address] Sean Skinner MD [address] [place] [address] Health Maintenance Due Date Last Done Comments [...] this topic Insurance MEDICAID [place] Care Teams Outside Plant Supervisor Relationship Specialty Start Date End Date Azul Brandon APRN, BOARD CERTIFIED ORTHODONTIST [address] [place], [place] [phone] PCP - General Advanced Practice Nurse 08/03/24 Ata Rosas MD [address] [phone] Consulting Physician Urological Surgery 02/25/23 Getachew Lee APRN, BOARD CERTIFIED ORTHODONTIST [address] [place] [address] Nurse Practitioner Advanced Practice Nurse 10/14/22
--- OUTSIDE RECORDS SUMMARY | 2024-12-26 16:17 | XMS_ITS | Encounter Summary ---
Author Organization [facility] Address [address] [place] [address] Phone Care Team Providers Care Fine Patcher Name Role Phone Rhoda Sawant MD Primary Care Provider Ata Zavaleta MD Unavailable Getachew Lee APRN, EARLY INTERVENTIONIST Unavailable [phone] Azul Brandon APRN, EARLY INTERVENTIONIST Primary Care Pr ovider Reason for Visit * Reason Comments Medication Refill Encounter Details Date Type Department Care Team (Late st Contact Info) Description 09/07/2023 Refill [facility] [address] [place] [address] Ata Rosas MD [address] [address] Medication Refill Social History Tobacco [...] 08/18/23 Office Visit Getachew Lee APRN, CNP [facility] [place] 05/19/23 Office Visit Getachew Lee APRN, CNP [facility] [place] 04/21/23 Office Visit Getachew Lee APRN, CNP [facility] [place] 03/31/23 Office Visit Getachew Lee APRN, CNP [facility] [place] 02/25/23 Procedure Visit Ata Rosas MD [facility] [place] 01/13/23 Office Visit Getachew Lee APRN, CNP [facility] [place] 11/25/22 Office Visit Getachew Lee APRN, LISBETH [facility] [place] 10/14/22 Office Visit Getachew Lee APRN, LISBETH [facility] [place] Showing recent visits within past 365 days and meeting all other requirements Future Appointments No visits were found meeting these conditions. Showing future appointments within next 90 days and meeting all other requirements documented in this encounter Plan of Treatment Upcoming Encounters Date Type Department Care Team (Late st Contact Info) Description 03/07/2025 9:00 AM SMOKING PIPE DRILLER AND THREADER Office Visit [facility] - [facility] [address] [place] [address] Sean Skinner MD [address] [place] [address] documented as of this encounter Visit Diagnoses Diagnosis Hypogonadism in male documented in this encounter Care Teams Fine Patcher Relationship Specialty Start Date End Date Rhoda Sawant MD PCP - General Family Medicine 12/01/22 08/02/24 Azul Brandon APRN, EARLY INTERVENTIONIST [address] [place] [address] PCP - General Advanced Practice Nurse 08/03/24 Ata Rosas MD [address] [address] Consulting Physician Urological Surgery 02/25/23 Getachew Lee APRN, EARLY INTERVENTIONIST [address] [place] [address] Nurse Practitioner Advanced Practice Nurse 10/14/22 documented as of this encounter
--- OUTSIDE RECORDS SUMMARY | 2024-12-26 16:17 | XMS_ITS | Clinical Summary ---
Author Organization [facility] [address] Address [address] [place] [address] Care Team Providers Care Supervisor Rolling Room Name Role Phone Kvng Cutler MD Primary Care Provider [phone] Allergies Active Allergy Reactions Criticality Noted Date [...] on file Legal Sex Male 6:32 PM NUCLEAR POWER PLANT ENGINEER Gender Identity Not on file Sexual Orientation Not on file Obstetrics History Last Filed Vital Signs Vital Sign Reading Time Taken Comments Blood Pressure 125/77 07/20/2023 8:13 AM CDT Pulse 66 07/20/2023 8:13 AM CDT Temperature 36.9 C (98.5 F) 03/21/2019 10:11 AM NUCLEAR POWER PLANT ENGINEER Respiratory Rate 18 03/21/2019 10:11 AM NUCLEAR POWER PLANT ENGINEER Oxygen Saturation 95% 03/21/2019 10:11 AM NUCLEAR POWER PLANT ENGINEER Inhaled Oxygen Concentration - - Weight 129.3 [...] patient's age to complete this topic Insurance [facility] Care Teams Supervisor Rolling Room Relationship Specialty Start Date End Date Kvng Cutler MD PCP - General Emergency Medicine 03/31/19
--- OUTSIDE RECORDS SUMMARY | 2024-12-26 16:17 | XMS_ITS | Clinical Summary ---
Author Organization [facility] Address [address] [place] [address] Care Team Providers Care Final Inspector Paper Name Role Phone Rhoda Sawant MD Primary Care Provider [phone] Source Comments [facility],non-owned Affiliates and Associated Physician Practices is amultiple site organization consisting of ambulatory clinics and hospital sitesin [place], [place], [place] and [place]. This disclosure is being madepursuant to the Care Everywhere program and may not contain all information available regarding this patient. Last updated 17.[facility] Allergies Active Allergy Reactions Criticality Noted Date Comments Erythromycin Other 04/10/2020 Hearing loss Ibuprofen Urticaria 08/30/2010 Medications * Be aware that medications may not be up to date on this document. Alwaysverify current medications with the patient. fluticasone propionate (Flonase) 50 MCG/ACT nasal spray [place] 2 (two) sprays into each nostril once daily 48 g 4 12/25/19 22 Active azelastine (Astelin) 0.1 % nasal spray [place] 1 (one) spray to 2 (two) sprays [...] 04/10/2020 Assessment & Plan (04/10/2020 11:42 AM FURNACE FEEDER): Flexible laryngoscopy deferred due to recent positive [...] 04/10/2020 Assessment & Plan (04/10/2020 11:45 AM FURNACE FEEDER): Patient has a history of allergic rhinitis [...] 04/10/2020 Assessment & Plan (04/10/2020 11:47 AM FURNACE FEEDER): Patient with recurrent sinus infections requiring medical [...] 04/10/2020 Assessment & Plan (04/10/2020 11:48 AM FURNACE FEEDER): Patient with bilateral tinnitus - he does [...] on file Legal Sex Male 11:52 AM FURNACE FEEDER Gender Identity Not on file Sexual Orientation [...] patient's age to complete this topic Insurance [facility] [place] [address] [place] [address] [facility] Care Teams Final Inspector Paper Relationship Specialty Start Date End Date Rhoda Sawant MD [address] [place] [address] PCP - General Family Medicine 07/22/24
--- OUTSIDE RECORDS SUMMARY | 2024-12-26 16:17 | XMS_ITS | Encounter Summary ---
Author Organization [facility] Address [address] [place] [address] Phone Care Team Providers Care Protection Agent Name Role Phone Rhoda Sawant MD Primary Care Provider Ata Zavaleta MD Unavailable Getcahew Lee APRN, COFFEE SHOP ATTENDANT Unavailable [phone] Azul Brandon APRN, [employer]FFEE SHOP ATTENDANT Primary Care Pr ovider Reason for Visit * Reason Comments Medication Refill Encounter Details Date Type Department Care Team (Late st Contact Info) Description 04/27/2023 Refill [facility] [address] [place] [address] Getachew Lee, ANKIT, COFFEE SHOP ATTENDANT [address] [place] [address] Medication Refill Social History Tobacco Use Types [...] 04/21/23 Office Visit Getachew Lee APRN, CNP [facility] [place] 03/31/23 Office Visit Getachew Lee APRN, CNP [facility] [place] 02/25/23 Procedure Visit Ata Rosas MD [facility] [place] 01/13/23 Office Visit Getachew Lee APRN, CNP [facility] [place] 11/25/22 Office Visit Getachew Lee APRN, CNP [facility] [place] 10/14/22 Office Visit Getachew Lee APRN, CNP [facility] [place] Showing recent visits within past 365 days and meeting all other requirements Future Appointments Date Type Provider Dept 05/19/23 Appointment Getachew Lee APRN, CNP [facility] [place] Showing future appointments within next 90 days and meeting all other requirements TY TRADER documented in this encounter Plan of Treatment Upcoming Encounters Date Type Department Care Team (Late st Contact Info) Description 03/07/2025 9:00 AM EQUITY TRADER Office Visit [facility] - [place] [address] [place] [address] Sean Skinner MD [address] [place] [address] documented as of this encounter Visit Diagnoses Not on filedocumented in this encounter Care Teams Protection Agent Relationship Specialty Start Date End Date Rhoda Sawant MD PCP - General Family Medicine 12/01/22 08/02/24 Azul Brandon APRN, COFFEE SHOP ATTENDANT [address] [place], [place] [id number] PCP - General Advanced Practice Nurse 08/03/24 Ata Rosas MD [address] [phone] Consulting Physician Urological Surgery 02/25/23 Getachew Lee APRN, COFFEE SHOP ATTENDANT [address] [place] [address] Nurse Practitioner Advanced Practice Nurse 10/14/22 documented as of this encounter
--- NOTE | 2024-12-26 16:32 | ED.BACK ---
HPI - Back Pain/Injury General Chief Complaint: Back Pain/Injury Stated Complaint: Slipped/fell-lower back pain Time Seen by Provider: 12/26/24 15:55 History of Present Illness HPI Narrative: Patient is a 49-year-old male who presents ER with low lumbar pain. He was pulling a car trailer when he slipped and fell axial loading spine yesterday. He had sudden onset pain in low back and was hearing cracking initially at the fall. He also has pain at his tailbone. He has no numbness or tingling of his privates. No difficulty with urination/defecation. The pain is start to move up his spine is also causes some discomfort in his neck. He has not found any alleviating factors. Pain is worse with sitting up in a chair and with physical movements. Related Data Home Medications ?Medication ?Instructions ?Recorded ?Confirmed ?Last Taken ?Type testosterone enanthate 75 mg/0.5 75 mg subcut DIRECTED 07/14/23 07/14/23 Unknown History mL subcutaneous auto-injector (Xyosted) Allergies Allergy/AdvReac Type Severity Reaction Status Date / Time erythromycin base Allergy Other Verified 12/26/24 11:28 Review of Systems Review of Systems: All systems reviewed & are unremarkable except as noted in HPI and below Constitutional: Constitutional: Reports no additional constitutional complaints Musculoskeletal: Musculoskeletal: Reports no additional musculoskeletal complaints Integumentary/Breasts: Skin/Breast: Reports system reviewed and no additional complaints, except as docu Neurologic: Reports system reviewed and no additional complaints, except as documented ON LICENSE OF [facility] Past Medical History Medical History History of diabetes mellitus, type II Pancreatitis Thyroid condition Non-alcoholic fatty liver disease Hypertension Surgical History Surgical History History of esophagogastroduodenoscopy (EGD) H/O colonoscopy Family History Family History Mother Family history non-contributory Social History Social History Smoking status: Former smoker Substance use: never Living arrangements: with family Gender identity (if verbalized by the patient): Male Spiritual care concerns: No Exam Narrative: GENERAL: Uncomfortable-appearing, well-nourished, and in no acute distress. HEAD: Normocephalic, atraumatic. ENT: Mucous membranes moist. CHEST: Clear to auscultation. No respiratory distress. HEART: Regular rate and rhythm. Normal peripheral pulses. Back: Tender palpation midline at L3-L4 with significant discomfort moving into paraspinal musculature as well. Unremarkable exam of midline C/T spine and paraspinal muscles region that region. Patient has discomfort moving into the SI region bilaterally. EXTREMITIES: Normal range of motion. No edema. SKIN: Warm, dry, no rash. NEURO: Alert and oriented x3. PSYCH: Normal mood and affect. Course Course Emergency Course: Plain films negative but patient with significant pain in axial loading of the spine. Will obtain CT scan to rule out more occult fracture of the sacrum and lumbar spine. Vital Signs Vital signs: Vital Signs Temperature 97.9 F 12/26/24 11:29 Pulse Rate 91 12/26/24 11:29 Respiratory Rate 16 12/26/24 11:29 Blood Pressure 130/79 12/26/24 11:29 Pulse Oximetry 97 12/26/24 11:29 Oxygen Delivery Room Air 12/26/24 11:29 Temperature 97.9 F 12/26/24 15:33 Pulse Rate 82 12/26/24 15:33 Respiratory Rate 12 12/26/24 15:33 Blood Pressure 131/79 12/26/24 15:33 Pulse Oximetry 100 12/26/24 15:33 Oxygen Delivery Room Air 12/26/24 15:30 MDM - Back Pain/Injury Imaging Data Radiologist's impression: ITS Impressions Lumbar Spine X-Ray 12/26/24 14:48 Impression: No acute abnormality. Lumbar Spine CT 12/26/24 16:34 IMPRESSION: 1. Grade 1 anterolisthesis of L5 on S1 due to bilateral pars defects at the L5 level. 2. No compression fracture in the lumbar spine. 3. Discogenic and degenerative change in the lumbar spine most prominent at the L4-L5 and L5-S1 levels as detailed above. If symptoms persist or worsen, consider an MRI for further assessment. Discharge Plan Discharge Clinical Impression: Low back strain Patient Disposition: Home Condition: Stable Instructions: Acute Low Back Pain (ED) Additional Instructions: Please return to the emergency department if you develop severe pain that is not controlled by pain medications or if you are unable to walk because of pain or weakness. Return to the emergency department immediately if you develop fevers, loss of bowel or bladder control (dribbling of urine or having accidents you wouldn't normally have), inability to urinate, numbness of your genital or anal area, or weakness/numbness of your legs or arms as these could all be signs of a serious medical emergency. Patient Language: Scottish Prescriptions: New naproxen 375 mg tablet 375 mg PO BID Qty: 14 0RF diazepam [Valium] 5 mg tablet 5 mg PO BID PRN (Reason: muscle spasm) Qty: 7 0RF No Action Xyosted 75 mg/0.5 mL auto-injector 75 mg SUBCUT DIRECTED amoxicillin-pot clavulanate 875-125 mg tablet 1 tablet PO Q12H 10 Days Qty: 20 0RF prednisone 20 mg tablet 40 mg PO DAILY 5 Days Qty: 10 0RF meclizine 25 mg tablet 25 mg PO TID PRN (Reason: dizziness) Qty: 15 0RF ondansetron 4 mg tablet,disintegrating 4 mg PO Q8H PRN (Reason: nausea and vomiting) Qty: 15 0RF ciprofloxacin-dexamethasone 0.3-0.1 % drops,suspension 4 drp EACH EAR Q12H 7 Days Qty: 7.5 0RF Follow-up/Referrals: Alejandro,Rhoda Christie MD [Primary Care Provider, Family Practice] - 1 Week
[2024-12-26] MEDS: SODIUM CHLORIDE 0.9% IV 1,000 ML 999 ML IV CONT (16:40)
[2024-12-26] MEDS: KETOROLAC 30 MG/ML VIAL (*BKC) IV PUSH (16:42)
[2024-12-26] MEDS: diazePAM INJ (*CRX) 10 MG/2 ML SYRINGE 5 MG IV PUSH (16:42)
[2024-12-26 17:42] VITALS: BP 128/90; PULSE 78; RESP 20; O2SAT 100
== END 2024-12-26 17:43 | disposition home or self-care (01) ==
PROVIDERS: Emergency Provider Emergency Medicine; PCP Family Medicine
DX: S39.012A Strain of muscle, fascia and tendon of lower back, initial encounter (principal); I10 Essential (primary) hypertension; E11.9 Type 2 diabetes mellitus without complications; K76.0 Fatty (change of) liver, not elsewhere classified; Z87.891 Personal history of nicotine dependence; W18.39XA Other fall on same level, initial encounter
CPT/HCPCS: 72100; 72131; 96361; 96374; 96375; 99284; J1885; J3360; J7030